=== PATIENT | male | born 1935 | race Two or more races ===

== ENCOUNTER 2016-02-24 17:03 | Inpatient (IN) | payer MEDICARE, BC ==
[~2016-02-24] VITALS: Ht 160 cm; Wt 64.4 kg
[2016-02-24 17:04] VITALS: BP 162/111
[2016-02-24 18:03] VITALS: BP 167/108
[2016-02-24 18:04] LABS: TROPONIN I < 0.30 ng/mL (<=0.30)
[2016-02-24 18:08] LABS: ALANINE AMINOTRANSFERASE 13 U/L (3-41); ALBUMIN/GLOBULIN RATIO 1.6 (1.0-2.7); ANION GAP 20 (5-15); ASPARTATE AMINO TRANSFERASE 15 U/L (5-40); CALCIUM 10.8 mg/dL (8.6-10.2); CARBON DIOXIDE 21 mEQ/L (20-30); CHLORIDE 101 mEQ/L (98-107); CREATININE 3.8 mg/dL (0.7-1.2); HEMOLYSIS 13; POTASSIUM 4.8 mEQ/L (3.4-4.9); SODIUM 142 mEQ/L (135-145); TOTAL PROTEIN 6.9 g/dL (6.6-8.7)
[2016-02-24 18:14] LABS: ABG PCO2 29.4 mmHg (35.0-45.0)
[2016-02-24 18:14] LABS: MEAN CORPUSCULAR HEMOGLOBIN 27.1 PG (27.0-31.0); MEAN CORPUSCULAR VOLUME 87 FL (80-99); MEAN PLATELET VOLUME 6.3 FL (6.5-10.1); PLATELET COUNT 260 K/UL (150-450); RED BLOOD COUNT 5.76 M/UL (4.70-6.10); RED CELL DISTRIBUTION WIDTH 14.5 % (11.6-14.8); WHITE BLOOD COUNT 14.7 K/UL (4.8-10.8)
[2016-02-24 18:15] LABS: ABG ALLEN TEST POSITIVE; ABG BASE EXCESS -3.9
[2016-02-24 18:15] LABS: CKMB 2.1 ng/mL (< 6.7)
[2016-02-24 18:17] LABS: BASOPHILS % (AUTO) 0.3 % (0.0-2.0); LYMPHOCYTES % (AUTO) 3.1 % (20.0-45.0); MONOCYTES % (AUTO) 5.5 % (1.0-10.0); NEUTROPHILS % (AUTO) 91.1 % (45.0-75.0)
[2016-02-24 18:38] LABS: APPEARANCE,URINE CLEAR; KETONES,URINE NEGATIVE (NEGATIVE); LEUKOCYTE ESTERASE ,URINE 1+ (NEGATIVE); NITRITE,URINE NEGATIVE (NEGATIVE); PH,URINE 5 (4.5-8.0); PROTEIN,URINE 2+ (NEGATIVE); UROBILINOGEN,URINE NORMAL MG/DL (0.0-1.0)
[2016-02-24 18:48] LABS: BACTERIA,URINE FEW /HPF
[2016-02-24] MEDS ORDERED: Piperacillin/Tazobactam 3.375 GM in NS 110 ML IVPB ONE (19:15)
[2016-02-24] MEDS ORDERED: Zosyn 3.375gm inj ONE (19:17)
[2016-02-24 20:15] VITALS: BP 154/108
[2016-02-24 22:01] VITALS: BP 120/69
[2016-02-24] MEDS ORDERED: LEVETIRACE100 MG/1 M GT (22:23)
[2016-02-24] MEDS ORDERED: LEVOTHYROXINE50 MCG ORAL (22:23)
[2016-02-24] MEDS ORDERED: PROSCAR5 MG ORAL (22:23)
[2016-02-24] MEDS ORDERED: SENNA8.6 M2 PO (22:23)
[2016-02-24] MEDS ORDERED: ASPIRIN81 MG ORAL (22:23)
[2016-02-24] MEDS ORDERED: VITAMIN B-121000 MCG PO (22:23)
[2016-02-24] MEDS ORDERED: HEPARIN SO5000 UNIT2 SUBQ (22:23)
[2016-02-24] MEDS ORDERED: DOCUSATE SODIU100 MG ORAL (22:23)
[2016-02-24 22:41] VITALS: BP 115/77
[2016-02-24] MEDS ORDERED: LORazepam Inj 2mg/ml 1ml IV PRN (22:45)
[2016-02-24] MEDS ORDERED: Miralax 17gm pkt ORAL PRN (22:45)
[2016-02-24] MEDS ORDERED: Morphine Sulfate 2mg/ml Inj IVP PRN (22:45)
[2016-02-24] MEDS ORDERED: Mylanta II UD 30ml ORAL PRN (22:45)
[2016-02-24] MEDS ORDERED: Promethazine/Codeine 5ml UD ORAL PRN (22:45)
[2016-02-24] MEDS ORDERED: DuoNeb 0.5-3(2.5)mg/3ml neb HHN PRN (22:45)
[2016-02-24] MEDS ORDERED: Nitroglycerin Subl 0.4mg tab (Bottle Of 25) SL PRN (22:45)
--- NOTE | 2016-02-24 23:07 | Emergency Room Report ---
History of Present Illness General Chief Complaint: Altered Level of Consciousness Source: Patient Present Illness HPI Patient is an 82-year-old male who presented after having increased altered level consciousness. The patient presented from his rehabilitation center. Patient was noted to have progressively altered mental status over the past few weeks. The patient had been previously more responsive. The patient had prior CT and MRIs done at [facility]. He was noted to have some difficulty breathing. Patient appeared to be somewhat less responsive at this time. He is noted to have some fever. He had remote history of adenocarcinoma Allergies: Coded Allergies: No Known Allergies (Unverified , 02/24/16) Patient History Past Medical History: see triage record Reviewed Nursing Documentation: PMH: Agreed, PSxH: Agreed Nursing Documentation-PMH Hx Cancer: Yes - LYMPH NODE, LUNG CANCER Hx Seizures: Yes Review of Systems All Other Systems: limited - by mental status Physical Exam Vital Signs Date Time Temp Pulse Resp B/P Pulse Ox O2 Delivery O2 Flow Rate FiO2 02/24/16 16:55 98.6 98 20 162/111 95 Room Air 02/24/16 17:04 10.0 100 General Appearance: moderate distress, Chronically Ill ENT: dry mucus membranes Neck: full range of motion, supple, thyroid normal Respiratory: lungs clear, normal breath sounds, no respiratory distress Cardiovascular #1: normal peripheral pulses, regular rate, rhythm Gastrointestinal: soft, other - lower abdominal fullness and mass Musculoskeletal: normal inspection, back normal, digits/nails normal Neurologic: other - Grimaces with abdominal exam, lower abdomen fullness/ bladder distention Psychiatric: other - aphasic Skin: normal inspection, normal color Medical Decision Making Diagnostic Impression: Primary Impression: Altered level of consciousness Additional Impressions: Sepsis Urinary tract infection ER Course Presented for altered mental status.Differential diagnosis included but was not limited to ischemic stroke, subarachnoid hemorrhage, hypoglycemia, spinal cord injury, neurodegenerative disorder, urinary tract infection, hypoxemia.Because of complexity of patient's case laboratory testing and imaging studies were ordered. CT the head read by radiology showed degenerative changes and chronic white matter changes. There is no to be some calcification in the parietal area which may be related to an old infarct. The patient was started on IV antibiotics after the [place] catheter was placed . The patient was discussed with Dr. Nelson Rodriguez for inpatient management. Laboratory Tests Test 02/24/16 17:30 02/24/16 18:00 02/24/16 20:45 White Blood Count 14.7 K/UL (4.8-10.8) H Red Blood Count 5.76 M/UL (4.70-6.10) Hemoglobin 15.6 G/DL (14.2-18.0) Hematocrit 50.3 % (42.0-52.0) Mean Corpuscular Volume 87 FL (80-99) Mean Corpuscular Hemoglobin 27.1 PG (27.0-31.0) Mean Corpuscular Hemoglobin Concent 31.0 G/DL (32.0-36.0) L Red Cell Distribution Width 14.5 % (11.6-14.8) Platelet Count 260 K/UL (150-450) Mean Platelet Volume 6.3 FL (6.5-10.1) L Neutrophils (%) (Auto) 91.1 % (45.0-75.0) H Lymphocytes (%) (Auto) 3.1 % (20.0-45.0) L Monocytes (%) (Auto) 5.5 % (1.0-10.0) Eosinophils (%) (Auto) 0.0 % (0.0-3.0) Basophils (%) (Auto) 0.3 % (0.0-2.0) Sodium Level 142 mEQ/L (135-145) Potassium Level 4.8 mEQ/L (3.4-4.9) Chloride Level 101 mEQ/L (98-107) Carbon Dioxide Level 21 mEQ/L (20-30) Anion Gap 20 (5-15) H Blood Urea Nitrogen 63 mg/dL (7-23) H Creatinine 3.8 mg/dL (0.7-1.2) H Estimate Glomerular Filtration Rate mL/min (>60) Glucose Level 154 mg/dL (74-106) H Lactic Acid Level 1.80 mmol/L (0.66-2.22) 0.90 mmol/L (0.66-2.22) Calcium Level 10.8 mg/dL (8.6-10.2) H Total Bilirubin 0.5 mg/dL (0.0-1.2) Aspartate Amino Transferase (AST) 15 U/L (5-40) Alanine Aminotransferase (ALT) 13 U/L (3-41) Alkaline Phosphatase 69 U/L (40-129) Total Creatine Kinase 40 U/L (38-174) Creatine Kinase MB 2.1 ng/mL (< 6.7) Creatine Kinase MB Relative Index 5.2 Troponin I < 0.30 ng/mL (<=0.30) Pro-B-Type Natriuretic Peptide 872 pg/mL (0-450) H Total Protein 6.9 g/dL (6.6-8.7) Albumin 4.3 g/dL (3.5-5.2) Globulin 2.6 g/dL Albumin/Globulin Ratio 1.6 (1.0-2.7) Urine Color Yellow Urine Appearance Clear Urine pH 5 (4.5-8.0) Urine Specific [place] 1.020 (1.005-1.035) Urine Protein 2+ (NEGATIVE) H Urine Glucose (UA) Negative (NEGATIVE) Urine Ketones Negative (NEGATIVE) Urine Occult Blood 4+ (NEGATIVE) H Urine Nitrite Negative (NEGATIVE) Urine Bilirubin Negative (NEGATIVE) Urine Urobilinogen Normal MG/DL (0.0-1.0) Urine Leukocyte Esterase 1+ (NEGATIVE) H Urine RBC 5-10 /HPF (0 - 0) H Urine WBC 5-10 /HPF (0 - 0) H Urine Squamous Epithelial Cells None /LPF (NONE/OCC) Urine Bacteria Few /HPF (NONE) Arterial Blood pH 7.428 (7.350-7.450) Arterial Blood Partial Pressure CO2 29.4 mmHg (35.0-45.0) L Arterial Blood Partial Pressure O2 490.3 mmHg (75.0-100.0) H Arterial Blood HCO3 19.0 mmol/L (22.0-26.0) L Arterial Blood Oxygen Saturation 99.6 % (92.0-98.0) H Arterial Blood Base Excess -3.9 Connor Test Positive Microbiology Date/Time Source Procedure Growth Status 02/24/16 18:20 Nasal Nares Influenza Types A,B Antigen (IGNACIO) - Final Complete EKG Diagnostic Results Rate: normal - 99 Rhythm: NSR ST Segments: no acute changes Rhythm Strip Diag. Results EP Interpretation: yes Rhythm: NSR, no PVC's, no ectopy Chest X-Ray Diagnostic Results EP Interpretation: Yes Findings: no consolidation, no effusion, no pneumothorax, no acute cardiopulmonary disease Number of Views: 1 Last Vital Signs Date Time Temp Pulse Resp B/P Pulse Ox O2 Delivery O2 Flow Rate FiO2 02/24/16 22:41 98.7 70 15 115/77 100 Room Air 10.0 100 Status: unchanged Disposition: ADMITTED INPATIENT Condition: Serious Referrals: NON PHYSICIAN (PCP) Jasper Mattson Feb 24, 2016 23:07
[2016-02-24] MEDS ORDERED: Vancomycin 1gm in D5W 275ml IVPB ONE (23:30)
[2016-02-25] MEDS ORDERED: Vancomycin 1gm inj IVPB ONE (00:10)
[2016-02-25] MEDS: D5 1/2NS 1,000 ML IV SCH ×3 (00:19→17:38)
[2016-02-25 00:20] VITALS: BP 114/74
[2016-02-25] MEDS ORDERED: ZOLPIDEM TARTRA10 MG ORAL (02:01)
[2016-02-25] MEDS ORDERED: NORCO 5-325 TA1 EACH ORAL (02:01)
[2016-02-25] MEDS ORDERED: TYLENOL650 MG PR (02:01)
[2016-02-25 04:15] VITALS: BP 119/66
[2016-02-25] MEDS ORDERED: Piperacillin/Tazobactam 2.25 GM in D5W 55 ML IVPB SCH (06:00)
[2016-02-25] MEDS ORDERED: Heparin 5000 units/ml inj SUBQ SCH (06:00)
[2016-02-25 08:10] VITALS: BP 133/78
[2016-02-25 08:28] LABS: MEAN CORPUSCULAR HEMOGLOBIN 28.4 PG (27.0-31.0); MEAN CORPUSCULAR HGB CONC 33.2 G/DL (32.0-36.0); MEAN CORPUSCULAR VOLUME 86 FL (80-99); MEAN PLATELET VOLUME 7.1 FL (6.5-10.1); PLATELET COUNT 205 K/UL (150-450); RED BLOOD COUNT 4.69 M/UL (4.70-6.10); RED CELL DISTRIBUTION WIDTH 14.2 % (11.6-14.8); WHITE BLOOD COUNT 9.5 K/UL (4.8-10.8)
[2016-02-25 08:34] LABS: INR 1.1 (0.9-1.1); PROTHROMBIN TIME 11.4 SEC (9.30-11.50)
[2016-02-25] MEDS: D5W IVPB SCH ×2 (08:41→20:31)
[2016-02-25] MEDS: ZOSYN IVPB SCH ×2 (08:41→20:31)
[2016-02-25 08:46] LABS: ALANINE AMINOTRANSFERASE 11 U/L (3-41); ALBUMIN/GLOBULIN RATIO 1.2 (1.0-2.7); ANION GAP 17 (5-15); ASPARTATE AMINO TRANSFERASE 10 U/L (5-40); CALCIUM 9.8 mg/dL (8.6-10.2); CARBON DIOXIDE 23 mEQ/L (20-30); CHLORIDE 104 mEQ/L (98-107); CHOLESTEROL 130 mg/dL (< 200); CREATININE 2.4 mg/dL (0.7-1.2); HEMOLYSIS 3; LDL CHOLESTEROL (CALC.) 49 mg/dL (60-99); POTASSIUM 3.9 mEQ/L (3.4-4.9); SODIUM 144 mEQ/L (135-145); TOTAL PROTEIN 6.4 g/dL (6.6-8.7)
[2016-02-25] MEDS: Aspirin Baby 81mg ORAL SCH (08:49)
[2016-02-25] MEDS: levETIRAcetam 500mg/5ml Liquid GT SCH ×2 (08:49→17:39)
[2016-02-25] MEDS: Heparin 5000 units/ml inj SUBQ SCH ×2 (08:51→21:58)
[2016-02-25 09:28] LABS: BAND NEUTROPHILS % (MANUAL) 0 % (0-8); BASOPHILS % (MANUAL) 0 % (0-2); EOSINOPHILS % (MANUAL) 0 % (0-3); LYMPHOCYTES % (MANUAL) 4 % (20-45); NEUTROPHILS % (MANUAL) 86 % (45-75); PLATELET ESTIMATE ADEQUATE; PLATELET MORPHOLOGY NORMAL; TOTAL CELLS COUNTED 100
--- NOTE | 2016-02-25 10:03 | Diagnostic Imaging Report ---
Indication: Altered mental status Technique: Contiguous 5 mm thick transaxial imaging of the head obtained in a Siemens Sensation [address] scanner. Soft tissue and bone windows generated. Total Dose length Product (DLP): [address] Dose Index Volume (CTDIvol): 70.38 mGy Comparison: none Findings: There is mild prominence of the ventricles, basal cisterns, and cerebral sulci consistent with atrophy. Moderate, nonspecific, white matter hypoattenuation is noted throughout the brain consistent with chronic small vessel disease. 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 There is no midline shift, edema, acute hemorrhage, mass effect, or abnormal extra-axial fluid collections. Bones and extra osseous soft tissues are unremarkable. Impression: No acute intracranial bleed, mass effect or edema. Moderate atrophy of the brain. Evidence of chronic small vessel disease involving white matter tracts. Dr. Siu has communicated the preliminary results to the Emergency Department. There are no significant discrepancies. The CT scanner at [facility] is accredited by the [employer] and the scans are performed using protocols designed to limit radiation exposure to as low as reasonably achievable to attain images of sufficient resolution adequate for diagnostic evaluation.
--- NOTE | 2016-02-25 12:24 | Infectious Diseases Prog Note ---
Assessment/Plan Problems: (1) Sepsis Assessment & Plan: will send blood culture, and urine culture, continue zosyn and vancomycin empirically for now. (2) Urinary tract infection Assessment & Plan: continue zosyn, send urine culture (3) SUSAN (acute kidney injury) Assessment & Plan: suspect dehydration, continue IVF, monitor UOP, avoid nephrotoxic meds (4) Altered level of consciousness Assessment & Plan: due to the above, continue wide spectrum antibiotics and hydration, consult neurology (5) Adenocarcinoma Assessment & Plan: unclear whether in remission or not, consult HEM/ONC Subjective Allergies: Coded Allergies: No Known Allergies (Unverified , 02/24/16) Objective Vital Signs Last 24 Hour Vital Signs Date Time Temp Pulse Resp B/P Pulse Ox O2 Delivery O2 Flow Rate FiO2 02/25/16 08:10 97.7 79 20 133/78 96 Room Air 02/25/16 08:00 80 02/25/16 04:15 98.8 76 19 119/66 Room Air 02/25/16 03:47 73 02/25/16 00:20 98.7 74 19 114/74 98 Room Air 02/24/16 23:41 73 02/24/16 22:43 98.7 70 15 115/77 100 Room Air 10.0 100 02/24/16 22:41 98.7 70 15 115/77 100 Room Air 10.0 100 02/24/16 22:01 89 24 120/69 98 Non-Rebreather 10.0 100 02/24/16 20:15 95 21 154/108 95 Non-Rebreather 10.0 100 02/24/16 18:03 100.4 98 26 167/108 95 Non-Rebreather 10.0 100 02/24/16 17:04 98.6 117 20 162/111 95 Non-Rebreather 10.0 100 02/24/16 16:55 98.6 98 20 162/111 95 Room Air Height (Feet): 5 Height (Inches): 3.00 Weight (Pounds): 142 Microbiology Date/Time Source Procedure Growth Status 02/25/16 03:30 Nasal Nares Influenza Types A,B Antigen (IGNACIO) - Final Complete 02/24/16 18:20 Nasal Nares Influenza Types A,B Antigen (IGNACIO) - Final Complete Laboratory Tests Test 02/24/16 17:30 02/24/16 18:00 1/17/17 20:45 02/25/16 07:30 White Blood Count 14.7 K/UL (4.8-10.8) H 9.5 K/UL (4.8-10.8) Red Blood Count 5.76 M/UL (4.70-6.10) 4.69 M/UL (4.70-6.10) L Hemoglobin 15.6 G/DL (14.2-18.0) 13.3 G/DL (14.2-18.0) L Hematocrit 50.3 % (42.0-52.0) 40.1 % (42.0-52.0) L Mean Corpuscular Volume 87 FL (80-99) 86 FL (80-99) Mean Corpuscular Hemoglobin 27.1 PG (27.0-31.0) 28.4 PG (27.0-31.0) Mean Corpuscular Hemoglobin Concent 31.0 G/DL (32.0-36.0) L 33.2 G/DL (32.0-36.0) Red Cell Distribution Width 14.5 % (11.6-14.8) 14.2 % (11.6-14.8) Platelet Count 260 K/UL (150-450) 205 K/UL (150-450) Mean Platelet Volume 6.3 FL (6.5-10.1) L 7.1 FL (6.5-10.1) Neutrophils (%) (Auto) 91.1 % (45.0-75.0) H % (45.0-75.0) Lymphocytes (%) (Auto) 3.1 % (20.0-45.0) L % (20.0-45.0) Monocytes (%) (Auto) 5.5 % (1.0-10.0) % (1.0-10.0) Eosinophils (%) (Auto) 0.0 % (0.0-3.0) % (0.0-3.0) Basophils (%) (Auto) 0.3 % (0.0-2.0) % (0.0-2.0) Sodium Level 142 mEQ/L (135-145) 144 mEQ/L (135-145) Potassium Level 4.8 mEQ/L (3.4-4.9) 3.9 mEQ/L (3.4-4.9) Chloride Level 101 mEQ/L (98-107) 104 mEQ/L (98-107) Carbon Dioxide Level 21 mEQ/L (20-30) 23 mEQ/L (20-30) Anion Gap 20 (5-15) H 17 (5-15) H Blood Urea Nitrogen 63 mg/dL (7-23) H 63 mg/dL (7-23) H Creatinine 3.8 mg/dL (0.7-1.2) H 2.4 mg/dL (0.7-1.2) H Estimat Glomerular Filtration Rate mL/min (>60) mL/min (>60) Glucose Level 154 mg/dL (74-106) H 109 mg/dL (74-106) H Lactic Acid Level 1.80 mmol/L (0.66-2.22) 0.90 mmol/L (0.66-2.22) Calcium Level 10.8 mg/dL (8.6-10.2) H 9.8 mg/dL (8.6-10.2) Total Bilirubin 0.5 mg/dL (0.0-1.2) 0.6 mg/dL (0.0-1.2) Aspartate Amino Transf (AST/SGOT) 15 U/L (5-40) 10 U/L (5-40) Alanine Aminotransferase (ALT/SGPT) 13 U/L (3-41) 11 U/L (3-41) Alkaline Phosphatase 69 U/L (40-129) 56 U/L (40-129) Total Creatine Kinase 40 U/L (38-174) Creatine Kinase MB 2.1 ng/mL (< 6.7) Creatine Kinase MB Relative Index 5.2 Troponin I < 0.30 ng/mL (<=0.30) Pro-B-Type Natriuretic Peptide 872 pg/mL (0-450) H Total Protein 6.9 g/dL (6.6-8.7) 6.4 g/dL (6.6-8.7) L Albumin 4.3 g/dL (3.5-5.2) 3.5 g/dL (3.5-5.2) Globulin 2.6 g/dL 2.9 g/dL Albumin/Globulin Ratio 1.6 (1.0-2.7) 1.2 (1.0-2.7) Urine Color Yellow Urine Appearance Clear Urine pH 5 (4.5-8.0) Urine Specific [place] 1.020 (1.005-1.035) Urine Protein 2+ (NEGATIVE) H Urine Glucose (UA) Negative (NEGATIVE) Urine Ketones Negative (NEGATIVE) Urine Occult Blood 4+ (NEGATIVE) H Urine Nitrite Negative (NEGATIVE) Urine Bilirubin Negative (NEGATIVE) Urine Urobilinogen Normal MG/DL (0.0-1.0) Urine Leukocyte Esterase 1+ (NEGATIVE) H Urine RBC 5-10 /HPF (0 - 0) H Urine WBC 5-10 /HPF (0 - 0) H Urine Squamous Epithelial Cells None /LPF (NONE/OCC) Urine Bacteria Few /HPF (NONE) Arterial Blood pH 7.428 (7.350-7.450) Arterial Blood Partial Pressure CO2 29.4 mmHg (35.0-45.0) L Arterial Blood Partial Pressure O2 490.3 mmHg (75.0-100.0) H Arterial Blood HCO3 19.0 mmol/L (22.0-26.0) L Arterial Blood Oxygen Saturation 99.6 % (92.0-98.0) H Arterial Blood Base Excess -3.9 Connor Test Positive Differential Total Cells Counted 100 Neutrophils % (Manual) 86 % (45-75) H Lymphocytes % (Manual) 4 % (20-45) L Monocytes % (Manual) 10 % (1-10) Eosinophils % (Manual) 0 % (0-3) Basophils % (Manual) 0 % (0-2) Band Neutrophils 0 % (0-8) Platelet Estimate Adequate Platelet Morphology Normal Red Blood Cell Morphology Normal Prothrombin Time 11.4 SEC (9.30-11.50) Prothromb Time International Ratio 1.1 (0.9-1.1) Activated Partial Thromboplast Time 35 SEC (23-33) H Triglycerides Level 82 mg/dL (< 150) Cholesterol Level 130 mg/dL (< 200) LDL Cholesterol 49 mg/dL (60-99) L HDL Cholesterol 65 mg/dL (> 60) H Cholesterol/HDL Ratio 2.0 (3.3-4.4) L Thyroid Stimulating Hormone (TSH) 1.840 uIU/mL (0.300-4.500) Current Medications Medications (Trade) Dose Ordered Sig/Christina Route PRN Reason Start Time Stop Time Status Last Admin Dose Admin Acetaminophen (Tylenol) 650 mg Q4H PRN ORAL fever 02/24/16 22:45 03/25/16 22:44 Al Hydroxide/Mg Hydroxide (Mylanta II) 30 ml Q6H PRN ORAL dyspepsia 02/24/16 22:45 03/25/16 22:44 Albuterol/ Ipratropium (DuoNeb 0.5-3(2.5)mg/3ml) 3 ml Q4H PRN HHN Shortness of Breath 02/24/16 22:45 02/29/16 22:44 Aspirin (ASA) 81 mg DAILY ORAL 02/25/16 09:00 03/26/16 08:59 02/25/16 08:49 Clonidine HCl (Catapres) 0.1 mg Q4H PRN ORAL For High Blood Pressure 02/24/16 22:45 03/25/16 22:44 Dextrose (Dextrose 50%) STAT PRN IV Hypoglycemia 02/24/16 22:45 03/25/16 22:44 Dextrose/Sodium Chloride (D5 0.45% NS) 1,000 ml @ 50 mls/hr Q20H IV 02/24/16 17:50 03/25/16 17:49 02/25/16 00:19 Finasteride (Proscar) 5 mg DAILY ORAL 02/25/16 09:00 03/26/16 08:59 02/25/16 08:49 Heparin Sodium (Porcine) (Heparin 5000 units/ml) 5,000 units EVERY 12 HOURS SUBQ 02/25/16 09:00 03/26/16 08:59 02/25/16 08:51 Levetiracetam (Keppra) 500 mg BID GT 02/25/16 09:00 03/26/16 08:59 02/25/16 08:49 Levothyroxine Sodium 50 mcg 50 mcg ACBREAKFAST ORAL 02/25/16 06:30 03/26/16 06:29 Lorazepam (Ativan 2mg/ml 1ml) 0.5 mg Q4H PRN IV For Anxiety 02/24/16 22:45 03/02/16 22:44 Morphine Sulfate (Morphine Sulfate) 1 mg Q4H PRN IVP For Pain 7-10 02/24/16 22:45 03/02/16 22:44 Nitroglycerin (Ntg) 0.4 mg Q5M X 3 DOSES PRN SL Prn Chest Pain 02/24/16 22:45 03/25/16 22:44 Ondansetron HCl (Zofran) 4 mg Q6H PRN IVP Nausea & Vomiting 02/24/16 22:45 03/25/16 22:44 Piperacillin Sod/ Tazobactam Sod/ Dextrose (Zosyn/D5W) 110 ml @ 27.5 mls/hr Q12H IVPB 02/25/16 07:30 03/03/16 07:29 02/25/16 08:41 Polyethylene Glycol (Miralax) 17 gm HSPRN PRN ORAL Constipation 02/24/16 22:45 03/25/16 22:44 Promethazine HCl/ Codeine (Phenergan with Codeine) 5 ml Q4H PRN ORAL For Cough 02/24/16 22:45 03/25/16 22:44 Temazepam (Restoril) 15 mg HSPRN PRN ORAL Insomnia 02/24/16 22:45 03/02/16 22:44 Vancomycin HCl 1 ea 1 ea DAILY PRN MISC Per rx protocol 02/24/16 23:00 03/25/16 22:59 Nabor Gonzales M.D. Feb 25, 2016 12:24
--- NOTE | 2016-02-25 12:47 | Consultation ---
History of Present Illness General Date patient seen: Feb 25, 2016 Chief Complaint: Altered Level of Consciousness Referring physician: Dr Rodriguez Reason for Consultation: inpatient management Present Illness HPI 82-year-old male with hx of seizures, ?dementia residing in a rehab facility who presented after having increased altered level consciousness over the past few weeks. The patient had been previously more responsive. He was noted to have some fever. 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 He had a CT head in the showing only chronic vascular changes. He is admitted to [facility] for further evaluation. Allergies: Coded Allergies: No Known Allergies (Unverified , 02/24/16) Medication History Scheduled Acetaminophen (Acetaminophen), [address] Q6HR, (Reported) Aspirin* (Aspirin*), 81 MG ORAL DAILY, (Reported) Cyanocobalamin (Vitamin B-12) (Vitamin B-12), 1,000 MCG PO DAILY, (Reported) Docusate Sodium* (Docusate Sodium*), 100 MG ORAL TWICE A DAY, (Reported) Finasteride* (Proscar*), 5 MG ORAL DAILY, (Reported) Heparin Sod (Porcine) (Heparin Sodium*), 5,000 UNITS SUBQ EVERY 8 HOURS, ( Reported) Levetiracetam* (Levetiracetam*), 500 MG GT BID, (Reported) Levothyroxine Sodium* (Levothyroxine Sodium*), 50 MCG ORAL DAILY, (Reported) Scheduled PRN Hydrocodone Bit/Acetaminophen 5-325* ([place] 5-325*), 1 TAB ORAL Q4H PRN for For Pain, (Reported) Zolpidem Tartrate* (Zolpidem Tartrate*), 10 MG ORAL BEDTIME PRN for Insomnia, ( Reported) Miscellaneous Medications Sennosides (Senna), 8.6 MG PO, (Reported) Patient History Healthcare decision maker Orlando Tang (daughter) Resuscitation status Full Code Advanced Directive on File No Review of Systems All Other Systems: negative except mentioned in HPI Physical Exam General Appearance: WD/WN, no apparent distress Lines, tubes and drains: peripheral, central line HEENT: normocephalic, atraumatic Neck: non-tender, normal alignment Respiratory/Chest: chest wall non-tender, lungs clear Cardiovascular/Chest: normal peripheral pulses, normal rate Abdomen: normal bowel sounds Genitourinary/Rectal: normal genital exam Extremities: normal range of motion Last 24 Hour Vital Signs Date Time Temp Pulse Resp B/P Pulse Ox O2 Delivery O2 Flow Rate FiO2 02/25/16 08:10 97.7 79 20 133/78 96 Room Air 02/25/16 08:00 80 02/25/16 04:15 98.8 76 19 119/66 Room Air 02/25/16 03:47 73 02/25/16 00:20 98.7 74 19 114/74 98 Room Air 02/24/16 23:41 73 02/24/16 22:43 98.7 70 15 115/77 100 Room Air 10.0 100 02/24/16 22:41 98.7 70 15 115/77 100 Room Air 10.0 100 02/24/16 22:01 89 24 120/69 98 Non-Rebreather 10.0 100 02/24/16 20:15 95 21 154/108 95 Non-Rebreather 10.0 100 02/24/16 18:03 100.4 98 26 167/108 95 Non-Rebreather 10.0 100 02/24/16 17:04 98.6 117 20 162/111 95 Non-Rebreather 10.0 100 02/24/16 16:55 98.6 98 20 162/111 95 Room Air Intake and Output 02/24/16 02/25/16 19:00 07:00 Intake Total 668.000 ml Output Total 1200 ml 2300 ml Balance -1200 ml -1632.000 ml Intake IV Total 668.000 ml Output Urine Total 1200 ml 2300 ml Laboratory Tests Test 02/24/16 17:30 02/24/16 18:00 02/24/16 20:45 02/25/16 07:30 White Blood Count 14.7 K/UL (4.8-10.8) H 9.5 K/UL (4.8-10.8) Red Blood Count 5.76 M/UL (4.70-6.10) 4.69 M/UL (4.70-6.10) L Hemoglobin 15.6 G/DL (14.2-18.0) 13.3 G/DL (14.2-18.0) L Hematocrit 50.3 % (42.0-52.0) 40.1 % (42.0-52.0) L Mean Corpuscular Volume 87 FL (80-99) 86 FL (80-99) Mean Corpuscular Hemoglobin 27.1 PG (27.0-31.0) 28.4 PG (27.0-31.0) Mean Corpuscular Hemoglobin Concent 31.0 G/DL (32.0-36.0) L 33.2 G/DL (32.0-36.0) Red Cell Distribution Width 14.5 % (11.6-14.8) 14.2 % (11.6-14.8) Platelet Count 260 K/UL (150-450) 205 K/UL (150-450) Mean Platelet Volume 6.3 FL (6.5-10.1) L 7.1 FL (6.5-10.1) Neutrophils (%) (Auto) 91.1 % (45.0-75.0) H % (45.0-75.0) Lymphocytes (%) (Auto) 3.1 % (20.0-45.0) L % (20.0-45.0) Monocytes (%) (Auto) 5.5 % (1.0-10.0) % (1.0-10.0) Eosinophils (%) (Auto) 0.0 % (0.0-3.0) % (0.0-3.0) Basophils (%) (Auto) 0.3 % (0.0-2.0) % (0.0-2.0) Sodium Level 142 mEQ/L (135-145) 144 mEQ/L (135-145) Potassium Level 4.8 mEQ/L (3.4-4.9) 3.9 mEQ/L (3.4-4.9) Chloride Level 101 mEQ/L (98-107) 104 mEQ/L (98-107) Carbon Dioxide Level 21 mEQ/L (20-30) 23 mEQ/L (20-30) Anion Gap 20 (5-15) H 17 (5-15) H Blood Urea Nitrogen 63 mg/dL (7-23) H 63 mg/dL (7-23) H Creatinine 3.8 mg/dL (0.7-1.2) H 2.4 mg/dL (0.7-1.2) H Estimat Glomerular Filtration Rate mL/min (>60) mL/min (>60) Glucose Level 154 mg/dL (74-106) H 109 mg/dL (74-106) H Lactic Acid Level 1.80 mmol/L (0.66-2.22) 0.90 mmol/L (0.66-2.22) Calcium Level 10.8 mg/dL (8.6-10.2) H 9.8 mg/dL (8.6-10.2) Total Bilirubin 0.5 mg/dL (0.0-1.2) 0.6 mg/dL (0.0-1.2) Aspartate Amino Transf (AST/SGOT) 15 U/L (5-40) 10 U/L (5-40) Alanine Aminotransferase (ALT/SGPT) 13 U/L (3-41) 11 U/L (3-41) Alkaline Phosphatase 69 U/L (40-129) 56 U/L (40-129) Total Creatine Kinase 40 U/L (38-174) Creatine Kinase MB 2.1 ng/mL (< 6.7) Creatine Kinase MB Relative Index 5.2 Troponin I < 0.30 ng/mL (<=0.30) Pro-B-Type Natriuretic Peptide 872 pg/mL (0-450) H Total Protein 6.9 g/dL (6.6-8.7) 6.4 g/dL (6.6-8.7) L Albumin 4.3 g/dL (3.5-5.2) 3.5 g/dL (3.5-5.2) Globulin 2.6 g/dL 2.9 g/dL Albumin/Globulin Ratio 1.6 (1.0-2.7) 1.2 (1.0-2.7) Urine Color Yellow Urine Appearance Clear Urine pH 5 (4.5-8.0) Urine Specific [place] 1.020 (1.005-1.035) Urine Protein 2+ (NEGATIVE) H Urine Glucose (UA) Negative (NEGATIVE) Urine Ketones Negative (NEGATIVE) Urine Occult Blood 4+ (NEGATIVE) H Urine Nitrite Negative (NEGATIVE) Urine Bilirubin Negative (NEGATIVE) Urine Urobilinogen Normal MG/DL (0.0-1.0) Urine Leukocyte Esterase 1+ (NEGATIVE) H Urine RBC 5-10 /HPF (0 - 0) H Urine WBC 5-10 /HPF (0 - 0) H Urine Squamous Epithelial Cells None /LPF (NONE/OCC) Urine Bacteria Few /HPF (NONE) Arterial Blood pH 7.428 (7.350-7.450) Arterial Blood Partial Pressure CO2 29.4 mmHg (35.0-45.0) L Arterial Blood Partial Pressure O2 490.3 mmHg (75.0-100.0) H Arterial Blood HCO3 19.0 mmol/L (22.0-26.0) L Arterial Blood Oxygen Saturation 99.6 % (92.0-98.0) H Arterial Blood Base Excess -3.9 Connor Test Positive Differential Total Cells Counted 100 Neutrophils % (Manual) 86 % (45-75) H Lymphocytes % (Manual) 4 % (20-45) L Monocytes % (Manual) 10 % (1-10) Eosinophils % (Manual) 0 % (0-3) Basophils % (Manual) 0 % (0-2) Band Neutrophils 0 % (0-8) Platelet Estimate Adequate Platelet Morphology Normal Red Blood Cell Morphology Normal Prothrombin Time 11.4 SEC (9.30-11.50) Prothromb Time International Ratio 1.1 (0.9-1.1) Activated Partial Thromboplast Time 35 SEC (23-33) H Triglycerides Level 82 mg/dL (< 150) Cholesterol Level 130 mg/dL (< 200) LDL Cholesterol 49 mg/dL (60-99) L HDL Cholesterol 65 mg/dL (> 60) H Cholesterol/HDL Ratio 2.0 (3.3-4.4) L Thyroid Stimulating Hormone (TSH) 1.840 uIU/mL (0.300-4.500) Microbiology Date/Time Source Procedure Growth Status 02/25/16 03:30 Nasal Nares Influenza Types A,B Antigen (IGNACIO) - Final Complete 02/24/16 18:20 Nasal Nares Influenza Types A,B Antigen (IGNACIO) - Final Complete Height (Feet): 5 Height (Inches): 3.00 Weight (Pounds): 142 Medications Current Medications Medications (Trade) Dose Ordered Sig/Christina Route PRN Reason Start Time Stop Time Status Last Admin Dose Admin Acetaminophen (Tylenol) 650 mg Q4H PRN ORAL fever 02/24/16 22:45 03/25/16 22:44 Al Hydroxide/Mg Hydroxide (Mylanta II) 30 ml Q6H PRN ORAL dyspepsia 1/17/17 22:45 03/25/16 22:44 Albuterol/ Ipratropium (DuoNeb 0.5-3(2.5)mg/3ml) 3 ml Q4H PRN HHN Shortness of Breath 02/24/16 22:45 02/29/16 22:44 Aspirin (ASA) 81 mg DAILY ORAL 02/25/16 09:00 03/26/16 08:59 02/25/16 08:49 Clonidine HCl (Catapres) 0.1 mg Q4H PRN ORAL For High Blood Pressure 02/24/16 22:45 03/25/16 22:44 Dextrose (Dextrose 50%) STAT PRN IV Hypoglycemia 02/24/16 22:45 03/25/16 22:44 Dextrose/Sodium Chloride (D5 0.45% NS) 1,000 ml @ 50 mls/hr Q20H IV 02/24/16 17:50 03/25/16 17:49 02/25/16 00:19 Finasteride (Proscar) 5 mg DAILY ORAL 02/25/16 09:00 03/26/16 08:59 02/25/16 08:49 Heparin Sodium (Porcine) (Heparin 5000 units/ml) 5,000 units EVERY 12 HOURS SUBQ 02/25/16 09:00 03/26/16 08:59 02/25/16 08:51 Levetiracetam (Keppra) 500 mg BID GT 02/25/16 09:00 03/26/16 08:59 02/25/16 08:49 Levothyroxine Sodium 50 mcg 50 mcg ACBREAKFAST ORAL 02/25/16 06:30 03/26/16 06:29 Lorazepam (Ativan 2mg/ml 1ml) 0.5 mg Q4H PRN IV For Anxiety 02/24/16 22:45 03/02/16 22:44 Morphine Sulfate (Morphine Sulfate) 1 mg Q4H PRN IVP For Pain 7-10 02/24/16 22:45 03/02/16 22:44 Nitroglycerin (Ntg) 0.4 mg Q5M X 3 DOSES PRN SL Prn Chest Pain 02/24/16 22:45 03/25/16 22:44 Ondansetron HCl (Zofran) 4 mg Q6H PRN IVP Nausea & Vomiting 02/24/16 22:45 03/25/16 22:44 Piperacillin Sod/ Tazobactam Sod/ Dextrose (Zosyn/D5W) 110 ml @ 27.5 mls/hr Q12H IVPB 02/25/16 07:30 03/03/16 07:29 02/25/16 08:41 Polyethylene Glycol (Miralax) 17 gm HSPRN PRN ORAL Constipation 02/24/16 22:45 03/25/16 22:44 Promethazine HCl/ Codeine (Phenergan with Codeine) 5 ml Q4H PRN ORAL For Cough 02/24/16 22:45 03/25/16 22:44 Temazepam (Restoril) 15 mg HSPRN PRN ORAL Insomnia 02/24/16 22:45 03/02/16 22:44 Vancomycin HCl 1 ea 1 ea DAILY PRN MISC Per rx protocol 02/24/16 23:00 03/25/16 22:59 Assessment/Plan Problem List: (1) Acute encephalopathy ICD Codes: G93.40 - Encephalopathy, unspecified SNOMED: 1460369 (2) Urinary tract infection ICD Codes: N39.0 - Urinary tract infection, site not specified SNOMED: 47887046 (3) Altered level of consciousness ICD Codes: R40.4 - Transient alteration of awareness SNOMED: 2101283 (4) SUSAN (acute kidney injury) ICD Codes: N17.9 - Acute kidney failure, unspecified SNOMED: 35850468 (5) Adenocarcinoma ICD Codes: C80.1 - Malignant (primary) neoplasm, unspecified SNOMED: 01126633, 144664469, 365329565 Assessment/Plan telemetry monitoring check cultures IV antibiotics check electrolytes renal evaluation neuro evaluation dvt prophylaxis HELADIO AMBRIZ Feb 25, 2016 12:47
[2016-02-25 13:03] VITALS: BP 118/72
--- NOTE | 2016-02-25 15:53 | Consultation ---
Consult Note Consult Note asked to eval for renal failure Patient is an 82-year-old male who presented after having increased altered level consciousness. The patient presented from his rehabilitation center. Patient was noted to have progressively altered mental status over the past few weeks. The patient had been previously more responsive. The patient had prior CT and MRIs done at [facility]. He was noted to have some difficulty breathing. Patient appeared to be somewhat less responsive at this time. He is noted to have some fever. He had remote history of adenocarcinoma Hx Cancer: Yes - LYMPH NODE, LUNG CANCER Hx Seizures: Yes . Assessment/Plan ---Acute renal failure due to ? Obstruction and Dehydration- Mainly prerenal picture- Other; - Acute encephalopathy - Urinary tract infection / Sepsis - Altered level of consciousness / Encephalopathy - Adenocarcinoma Plan: Hydrate- Avoid Nephrotoxics- Antibiotics- Urine studies- JUAN ALBERTO MNOTERO Feb 25, 2016 15:53
[2016-02-25 16:23] VITALS: BP 124/81
[2016-02-25] MEDS ORDERED: Vancomycin 1gm in D5W 275ml IVPB ONE (18:00)
--- NOTE | 2016-02-25 18:00 | Consultation ---
Consult Note Consult Note NEUROLOGY CONSULTATION: Full note dictated #[id number] 82 y/o, RH, CM who was well other than having adenocarcinoma of the lung a few years ago now in remission. In January 2016 he was driving his car and got lost. Then he was noted to have a rapid decline in cognitive and motor function. 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 In early February he had a seizure at home. He was taken to . He had a CT of the brain and MRI of the brain which revealed right parietal pathology, hydrocephalus and extensive DWM changes. He was started on Keppra. He also had a high volume LP done which did not improve his condition. He was then sent to [facility]. He was [facility] [place] [facility] [place]. His daughter has noted some abnormal movements of what she thinks is his right hand yesterday but they have stopped today. ON EXAM: Global cerebral dysfunction. Left VII central. Left > right paresis Brisker reflexes on left. IMPRESSION: Significantly encephalopathic due to R>L brain dysfunction. Electrolyte imbalances and UTI. Possible ictal phenomena. REC: 1. Correct toxic metabolic imbalances. 2. EEG. 3. Continue Keppra 500 mg q 12 H for now. Verito Tuttle M.D., M.S.P.Yoan. VERITO TUTTLE Feb 25, 2016 18:00
--- NOTE | 2016-02-25 18:58 | History and Physical Report ---
DATE OF ADMISSION: 02/24/2016 REASON FOR ADMISSION: Altered mental status and adenocarcinoma. HISTORY OF PRESENT ILLNESS: The patient is a very poor historian. Does not speak or does not answer my questions. Only nods when I call his name, so he is particularly only oriented to name and cannot obtain any history from the patient. The patient admitted for altered mental status. He came in with increased level of altered consciousness. Apparently, his altered mental status progressively getting worse in the past couple of weeks. The patient is more responsive . He was also noted to have some difficulty breathing. The patient has also has history of hydrocephalus. The patient apparently also has low-grade temperature and is also being admitted for urinary tract infection, which could exacerbate his mentation and contribute to the altered mental status. He has a remote history of adenocarcinoma. PAST MEDICAL HISTORY: Organic brain syndrome, history of lung cancer, and history of seizures. Also history of constipation and BPH as well as history of seizure disorder, hypothyroidism, constipation, insomnia, and hydrocephalus. ALLERGIES: No known allergies. PAST SURGICAL HISTORY: Unable to obtain. REVIEW OF SYSTEMS: Unable to obtain. FAMILY HISTORY: Unable to obtain. SOCIAL HISTORY: Unable to obtain. MEDICATIONS: Apparently, he takes aspirin, vitamin B12, Colace, finasteride, heparin, Keppra, Levoxyl, Senokot, and Ambien. PHYSICAL EXAMINATION: VITAL SIGNS: Temperature is 98.7 degrees, pulse 74, and blood pressure 114/75. HEENT: PERRLA. NECK: Supple. No lymphadenopathy. CHEST: Clear to auscultation. GASTROINTESTINAL: Soft, nontender, and nondistended. No organomegaly. Positive bowel sounds. EXTREMITIES: No edema. Reflexes equal on both sides. SKIN: The patient does have ecchymoses on the abdomen. CENTRAL NERVOUS SYSTEM: Only oriented to name. Does not answers questions. He has weak contractures. LABORATORY DATA: WBC of 14.7, hemoglobin of 15.6, and platelets 260,000. Sodium 142, potassium 4.8, BUN 62, creatinine 3.8, and glucose 154. ASSESSMENT AND PLAN: 1. Altered mental status, getting worse. 2. History of hydrocephalus. 3. History of fever. 4. History of retaining urine. 5. History of benign prostatic hypertrophy. 6. History of adenocarcinoma. 7. At this time, the patient has leukocytosis. 8. Acute renal failure. 9. Dehydration. Again, I have asked Dr. Tuttle, Dr. Gonzales, Dr. Bowman, and Dr. Barker to see the patient for the above-mentioned diagnoses and treatment. Nelson Rodriguez M.D. DR: HUMZA JOB#: [id number] CC:
[2016-02-25 20:00] VITALS: BP 136/76
--- NOTE | 2016-02-25 22:48 | Consultation ---
DATE OF CONSULTATION: 02/25/2016 INFECTIOUS DISEASE CONSULTATION CONSULTING PHYSICIAN: Nabor Gonzales M.D. REQUESTING PHYSICIAN: Nelson Rodriguez M.D. REASON FOR CONSULTATION: Sepsis, urinary tract infection, recommendation for antibiotic therapy. HISTORY OF PRESENT ILLNESS: The patient is an 82-year-old male, who was living at the [facility], was brought into [facility] for altered mental status and stiffness. The patient was noticed by his daughter, who visited him yesterday that he was altered, unresponsive, and stiff. The patient had previous history of adenocarcinoma of the lungs where he was treated for with radiation and chemotherapy. Recently, he had a CT scan and MRI image done by his primary care physician due to tremor and dementia like symptoms, both were normal. The patient was found to have urine retention in the emergency room. Madison catheter was placed and he had almost a liter out. The patient had evidence of urine infection. So, I was asked by the primary provider for antibiotics recommendation and management. As of note, the patient is a poor historian. History was mainly obtained by his daughter, who was at the bedside and the medical record. PAST MEDICAL HISTORY: 1. Significant for adenocarcinoma of the lung status post chemo and radiation treatment at [facility]. 2. Seizure disorder. 3. 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 PAST SURGICAL HISTORY: The patient had lobectomy due to adenocarcinoma of the lung. MEDICATIONS: He is on Zosyn and vancomycin. The rest of his medications, please refer to the MAR. ALLERGIES: He has no known drug allergy. SOCIAL HISTORY: The patient lives currently at the [facility] living. No recent drugs, tobacco, or alcohol. FAMILY HISTORY: Not contributory. PHYSICAL EXAMINATION: VITAL SIGNS: Temperature 97.7, pulse 77, respirations 18, blood pressure 134/81, and saturation 96% on room air. GENERAL: This is an elderly male, lying in bed, awake, alert, and oriented x2, not in distress with no focal deficits. HEENT: Normocephalic and atraumatic. Pupils are reactive to light. Dry oral mucosa. No exudate. NECK: Supple. No lymphadenopathy. CARDIOVASCULAR: Regular rate and rhythm. No murmur or gallop. LUNGS: Clear bilaterally. No wheezing or rhonchi. ABDOMEN: Soft, nontender, and nondistended. Positive bowel sounds. No hepatosplenomegaly. No ascites. EXTREMITIES: No edema or cyanosis. LABORATORY AND DIAGNOSTIC DATA: White count 9.5, hemoglobin 13.3, hematocrit 40.1, and platelet count 205,000. BUN of 63, creatinine of 2.4, glucose of 109. AST of 10, ALT of 11, LDL of 49. Microbiology, influenza screening for A and B, both were negative. Imaging, head CT scan showed no acute intracranial bleed, mass effect, or edema, moderate atrophy of the brain, and evidence of chronic small vessel disease involving white matter tracts. Venous Doppler of both lower extremities, both negative. ASSESSMENT AND PLAN: 1. Sepsis/urinary tract infection. We will send urine culture and blood culture. Continue Zosyn and vancomycin. Empiric treatment for now until further culture are obtained. 2. Urinary tract infection. Suspect due to urinary retention status post Madison catheter placement. Continue Zosyn. Await urine culture. 3. Acute renal failure due to obstructive uropathy. The patient had a Madison catheter placed, which relieved his obstruction. Continue intravenous fluid for hydration. Monitor urine output. Avoid nephrotoxic medications. 4. Altered level of consciousness. Suspect due to the above, improved. Continue wide-spectrum antibiotics therapy and hydration, consult Urology. 5. Adenocarcinoma of the lung status post chemo and radiation treatment, in remission. Follow up with hematology/oncology as an outpatient. Nabor Gonzales M.D. DR: BRIE JOB#: [id number] CC:
[2016-02-26] VITALS: BP 139/86
--- NOTE | 2016-02-26 00:47 | Consultation ---
DATE OF CONSULTATION: 02/25/2016 CONSULTING PHYSICIAN: Ray Tuttle M.D. REQUESTING PHYSICIAN: Nelson Rodriguez M.D. HISTORY: Mr. Kirby Mg is an 82-year-old, right-handed, gentleman who has a prior history of adenocarcinoma of the lung a few years ago, which is now in remission. He also has a history of benign prostatic hypertrophy which is relatively well controlled with the pills he is taking. He was functioning relatively well until January 2016 when he was driving his car and got lost. He was then noted by his family to have a relatively rapid decline in cognitive and motor function. His memory was deteriorating rapidly. He was having increasing problems with walking, and he was also having problems with controlling his bladder. 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 He was seen by Dr. Gurinder Ramos, and plans were to do a high-volume lumbar puncture. However, in early February 2016, he was at home and apparently had a generalized tonic-clonic seizure. He was taken to the [facility] Emergency Room and admitted. A CT scan of the brain and MRI scan of the brain were done and they revealed a right parietal area of pathology with a calcified lesion there. In addition, significant hydrocephalus and extensive deep white matter changes were also seen. The patient was started on Keppra for seizure prophylaxis. A high-volume lumbar puncture was also done, which did not improve his condition. He was then sent to the [facility] ([facility]) for rehabilitation. Over the last few days, his condition again started to get worse. He was becoming increasingly poorly responsive, and as per his daughter, he was having some abnormal limb movements, predominantly of his hand. She thinks that it was his right hand that was jerking. As a result of that, he was brought into the [facility] Emergency Room yesterday for altered mental state. He was evaluated in the emergency room and was discovered to have significant electrolyte imbalances, and in addition, had a urinary tract infection. He was treated for both those conditions, and as per his daughter, he is looking better now. PAST MEDICAL HISTORY: Significant for adenocarcinoma of the lung a few years ago which is now in remission, benign prostatic hypertrophy, relatively rapidly progressive cognitive decline since January 2016, and seizure disorder with a generalized tonic-clonic seizure in February 2016, treated with Keppra. FAMILY HISTORY: Nothing significant. PERSONAL HISTORY: Home: He used to live independently, but recently he has been living with his daughter. Work: He used to work as a repairer general. Habits: There is no history of alcohol tobacco or illicit drug use. PRESENT MEDICATIONS: Include vancomycin, Protonix, aspirin 81 mg daily, Proscar, Keppra 500 mg twice a day, heparin for DVT prophylaxis, Zosyn, DuoNeb, Tylenol p.r.n., morphine p.r.n., MiraLAX p.r.n., Zofran p.r.n., Ativan p.r.n., Restoril p.r.n., nitroglycerin p.r.n., clonidine p.r.n., and Phenergan With Codeine p.r.n. PHYSICAL EXAMINATION: GENERAL: He is a well-developed, well-nourished, pleasant gentleman, lying in bed, in no acute distress. VITAL SIGNS: Pulse is 76 per minute, blood pressure 124/81 mmHg, respirations 18 per minute, and temperature 97.7 degrees Fahrenheit. HEAD: Normocephalic and atraumatic. EENT: Examination benign. NECK: No neck rigidity was observed. NEUROLOGIC EXAMINATION: MENTAL STATUS EXAMINATION: He was awake, but not completely alert. He was oriented to self and hospital. He did not know the name of the hospital. He had no idea of what the date, month, or year was. He was able to recall 3/3 words immediately, but could not remember any of them in 1 minute and 3 minutes. He was unable to tell me who the present president was or who prior presidents were. His mathematical skills were impaired. His visuospatial function was also impaired. SPEECH: He had a mild dysarthria. LANGUAGE: He had anomia for low-frequency words. CRANIAL NERVE EXAMINATION: II: The visual gates were intact to confrontation testing. III, IV & : External ocular movements are full and the pupils 3 mm in diameter, equal, round, regular, and reactive to light. V: He had normal facial sensations and the temporales, masseters, and pterygoids functioned normally. VII: He had left VII central facial paresis. VIII: He was able to hear and had no nystagmus. IX: The palate moved symmetrically on phonation. X: He had no hoarseness of voice. XI: The sternocleidomastoids and trapezii functioned normally. XII: The tongue was in the midline without any fasciculations or atrophy. MOTOR SYSTEM: The tone was normal in all four extremities. Examination of muscle mass revealed no focal wasting. He did, however, have generalized muscle wasting. Examination of power revealed grade 5/5 power except for grade 4/5 power in the left finger extensors and iliopsoas and grade 5-/5 power in the right iliopsoas. SENSORY EXAMINATION: He had intact sensations to pinprick and light touch. He was unable to cooperate for the sensory modalities. REFLEXES: Trace+ on the right and 1+ on the left at the biceps, triceps, brachioradialis, and knees, and 0 at both ankles. The plantar responses were flexor bilaterally. COORDINATION: He performed well on [id number]-[id number] testing. He was unable to perform [id number]-tf-kint testing. STANCE & GAIT: Could not be tested. DIAGNOSTIC IMPRESSION: 1. Mr. Kirby Mg is an 82-year-old, right-handed, gentleman who does have a prior history of adenocarcinoma of the lung which is in remission now, cognitive dysfunction that started in January 2016 and rapidly progressed, and a single generalized tonic-clonic seizure in February 2016. The patient was in a rehabilitation facility where he was noted to have decline in cognitive function and was also having some abnormal jerking movements of one of his upper extremities; his daughter thinks the right. Since he has been at [facility], his condition seems to have improved. 2. On neurological examination, at this time, he demonstrates problems with orientation, recent and remote memory, visuospatial function, higher cognitive function and language. He also has left VII central facial paresis, quadriparesis involving the left side significantly more than the right and brisker reflexes on the left side. 3. The CT scan of the brain performed at [facility] reveals significant atrophy and deep white matter disease and in addition an area of calcification in the right parietal area. 4. Laboratory data obtained thus far revealed that he is mildly anemic with a hemoglobin of 13.3. When he came in, his WBC count was elevated to 14.7 with a left-sided shift. His electrolyte panel revealed his BUN elevated to 63 with a creatinine of 3.8, glucose of 154, and a proBNP of 872. His TSH is normal at 1.84. His urinalysis reveals that he does have a urinary tract infection with 1+ leukocyte esterase, 5 to 10 red blood cells, and 5 to 10 white blood cells per high-power field. 5. The patient's history and neurological examination are most compatible with a significant encephalopathic process due to right greater than left brain dysfunction, electrolyte imbalances, urinary tract infection, and possibly a postictal state. RECOMMENDATIONS: 1. Agree with management thus far. 2. Agree with treating the patient's urinary tract infection aggressively. 3. Agree with treating the patient's renal dysfunction as per Dr. Bowman. 4. At this point in time, Keppra 500 mg q.12 h. should be continued. 5. An EEG will be ordered to evaluate the patient for ongoing ictal or interictal phenomena. 6. The patient will be worked up thoroughly for other treatable causes of cognitive decline. Thank you for entrusting me with the care of Mr. Mg. I shall follow him with you. Ray Tuttle M.D., M.S.P.H. DR: JL JOB#: [id number] [email or web address]
[2016-02-26 04:00] VITALS: BP 137/82
--- NOTE | 2016-02-26 05:17 | Consultation ---
DATE OF CONSULTATION: 02/25/2016 UROLOGY CONSULTATION ATTENDING PHYSICIAN: Nelson Rodriguez M.D. REFERRING PHYSICIAN: Nelson Rodriguez M.D. CHIEF COMPLAINT/HISTORY OF PRESENT ILLNESS: Asked by Dr. Rodriguez to evaluate this 82-year-old gentleman regarding a history of BPH and urinary retention. Briefly the patient has a history of lung adenocarcinoma. He presented to the hospital with altered mental status and shortness of breath. He was admitted to the hospital for management of the same. The patient currently has a history of BPH and was found to have some evidence of urinary tract infection and urinary retention. As such, I was asked to evaluate the patient. The patient is improved from his initial presentation of altered mental status, but is still not completely oriented with it. He answers simple questions without difficulty, but cannot handle anything regarding his medical conditions or what has transpired prior to him arriving at the hospital. Most information is gathered from the chart. PAST MEDICAL HISTORY: 1. Organic brain syndrome. 2. Lung adenocarcinoma. 3. Seizures. 4. Hydrocephalus. 5. Constipation. 6. BPH. 7. Hypothyroidism. 8. Insomnia. PAST SURGICAL HISTORY: Uncertain. MEDICATIONS: Please see chart for current medications and administration details. ALLERGIES: No known drug allergies. SOCIAL HISTORY: Unobtainable. FAMILY HISTORY: Unobtainable. REVIEW OF SYSTEMS: A 12-system review of systems could not really be completed, as the patient is uncooperative with questioning. PHYSICAL EXAMINATION: GENERAL: The patient is an elderly gentleman, awake and alert, but not oriented. No obvious distress. HEENT: Normocephalic and atraumatic. Oropharynx clear. NECK: Supple. CHEST: Within normal limits. ABDOMEN: Soft, flat, nontender, and nondistended. EXTREMITIES: Warm and well perfused. No cyanosis, clubbing, or edema. BACK: No CVA tenderness to percussion. NEUROLOGIC: Notable for confusion and evidence of organic brain syndrome. GENITOURINARY: Grossly normal. Normal male phallus. No discharge, lesions, or curvature. There is a Madison catheter in place with clear yellow urine output. There are bilateral descended testes and cord structures with no masses or tenderness to palpation. LABORATORY DATA: White blood cell count 9.5, hematocrit 40.1, and platelets 205,000. PT 11.4, INR 1.1, and PTT 35. Urinalysis showed specific gravity 1.020 and pH 5.0. Dip test notable for 2+ protein, 4+ occult blood, and 1+ leukocyte esterase. Microanalysis with 5 to 10 white and red blood cells per high-power field and few bacteria seen. Sodium 144, potassium 3.9, chloride 104, bicarbonate 23, BUN 63, creatinine 2.4, and glucose 109. LFTs within normal limits. Calcium 9.8. RPR pending. DIAGNOSTIC IMAGING: CT scan of the head reveals no intracranial bleed, mass effect, or edema. ASSESSMENT AND PLAN: In summary, the patient is an 82-year-old gentleman with a history of lung cancer who is presenting with shortness of breath and altered mental status consistent with an infection. He was admitted for management of the same. He cannot provide any information, but apparently has a history of benign prostatic hypertrophy and some difficulty urinating. Physical exam is unremarkable outside of neurologic dysfunction and organic brain syndrome. Laboratory data is notable for evidence of possible urinary tract infection. Diagnostic imaging, which is a head CT scan, does not reveal evidence of mass, bleed, or midline shift. The catheter can be kept in place for now. The patient should be continued on Proscar as is being done. Additionally he should be continued on antibiotics with Zosyn and vancomycin, as this is excellent coverage until his cultures come back. Then, the antibiotic can be adjusted as necessary. Once the patient's mental status has improved, we can consider a trial of void at that time. Thank you for allowing me to participate in the care of this unfortunate gentleman. Please do not hesitate to contact me with any questions that you further have regarding his care. I will be happy to see him with you as needed. Daniele Galo M.D. DR: PATRICK JOB#: [id number] CC:
[2016-02-26] MEDS: D5W IVPB SCH ×3 (06:14→22:33)
[2016-02-26] MEDS: ZOSYN IVPB SCH ×3 (06:14→22:33)
[2016-02-26] MEDS: D5 1/2NS 1,000 ML IV SCH ×2 (06:14→18:17)
[2016-02-26 07:11] LABS: BASOPHILS % (AUTO) 0.9 % (0.0-2.0); EOSINOPHILS % (AUTO) 2.6 % (0.0-3.0); LYMPHOCYTES % (AUTO) 7.3 % (20.0-45.0); MEAN CORPUSCULAR HEMOGLOBIN 27.9 PG (27.0-31.0); MEAN CORPUSCULAR HGB CONC 32.5 G/DL (32.0-36.0); MEAN CORPUSCULAR VOLUME 86 FL (80-99); MEAN PLATELET VOLUME 6.8 FL (6.5-10.1); NEUTROPHILS % (AUTO) 80.3 % (45.0-75.0); PLATELET COUNT 214 K/UL (150-450); RED BLOOD COUNT 4.63 M/UL (4.70-6.10); WHITE BLOOD COUNT 6.7 K/UL (4.8-10.8)
[2016-02-26 07:23] LABS: ALANINE AMINOTRANSFERASE 11 U/L (3-41); ALBUMIN/GLOBULIN RATIO 1.1 (1.0-2.7); ANION GAP 15 (5-15); ASPARTATE AMINO TRANSFERASE 10 U/L (5-40); CALCIUM 9.8 mg/dL (8.6-10.2); CARBON DIOXIDE 25 mEQ/L (20-30); CHLORIDE 104 mEQ/L (98-107); CREATININE 1.7 mg/dL (0.7-1.2); HEMOLYSIS 3; PHOSPHORUS 5.1 mg/dL (2.5-4.8); POTASSIUM 3.7 mEQ/L (3.4-4.9); SODIUM 144 mEQ/L (135-145); TOTAL PROTEIN 6.3 g/dL (6.6-8.7); URIC ACID 6.3 mg/dL (3.0-7.5)
[2016-02-26 07:57] LABS: HEMOGLOBIN A1C 5.2 % (< 6.0)
[2016-02-26 08:00] VITALS: BP 140/88
[2016-02-26] MEDS: Aspirin Baby 81mg ORAL SCH (09:07)
[2016-02-26] MEDS: Heparin 5000 units/ml inj SUBQ SCH ×2 (09:08→20:50)
[2016-02-26] MEDS: levETIRAcetam 500mg/5ml Liquid GT SCH ×2 (10:21→18:17)
--- NOTE | 2016-02-26 10:38 | General Progress Note ---
Assessment/Plan Problem List: (1) Urinary tract infection ICD Codes: N39.0 - Urinary tract infection, site not specified SNOMED: 44352856 (2) Sepsis ICD Codes: A41.9 - Sepsis, unspecified organism SNOMED: 32612907 (3) Altered level of consciousness ICD Codes: R40.4 - Transient alteration of awareness SNOMED: 3010898 (4) Adenocarcinoma ICD Codes: C80.1 - Malignant (primary) neoplasm, unspecified SNOMED: 51551422, 189066844, 068259774 (5) Acute encephalopathy ICD Codes: G93.40 - Encephalopathy, unspecified SNOMED: 3613208 Status: progressing Assessment/Plan still confused uti abx per id sepsis vitals holding Subjective ROS Limited/Unobtainable: Yes Allergies: Coded Allergies: No Known Allergies (Unverified , 02/24/16) Objective Last 24 Hour Vital Signs Date Time Temp Pulse Resp B/P Pulse Ox O2 Delivery O2 Flow Rate FiO2 02/26/16 08:00 98.2 76 20 140/88 95 Room Air 02/26/16 04:00 97.0 63 20 137/82 97 Room Air 02/26/16 00:00 97.5 75 16 139/86 95 Room Air 02/25/16 20:00 97.9 81 19 136/76 97 Room Air 02/25/16 16:23 97.7 77 18 124/81 96 Room Air 02/25/16 13:03 97.2 73 20 118/72 96 Room Air 02/25/16 12:00 75 Intake and Output 02/25/16 02/26/16 19:00 07:00 Intake Total 705.0 ml 845.0 ml Output Total 300 ml 400 ml Balance 405.0 ml 445.0 ml Intake Oral 120 ml 360 ml IV Total 585.0 ml 485.0 ml Output Urine Total 300 ml 400 ml Laboratory Tests 02/25/16 19:00: Urine Eosinophils None seen, Urine Random Sodium 61 02/26/16 04:12: Urine Eosinophils None seen 02/26/16 05:20: White Blood Count 6.7, Red Blood Count 4.63L, Hemoglobin 12.9L, Hematocrit 39.8L , Mean Corpuscular Volume 86, Mean Corpuscular Hemoglobin 27.9, Mean Corpuscular Hemoglobin Concent 32.5, Red Cell Distribution Width 14.0, Platelet Count 214, Mean Platelet Volume 6.8, Neutrophils (%) (Auto) 80.3H, Lymphocytes ( %) (Auto) 7.3L, Monocytes (%) (Auto) 9.0, Eosinophils (%) (Auto) 2.6, Basophils (%) (Auto) 0.9, Sodium Level 144, Potassium Level 3.7, Chloride Level 104, Carbon Dioxide Level 25, Anion Gap 15, Blood Urea Nitrogen 54H, Creatinine 1.7H , Estimat Glomerular Filtration Rate , Glucose Level 107H, Hemoglobin A1c 5.2, Uric Acid 6.3, Calcium Level 9.8, Phosphorus Level 5.1H, Magnesium Level 2.0, Total Bilirubin 0.6, Gamma Glutamyl Transpeptidase 19, Aspartate Amino Transf ( AST/SGOT) 10, Alanine Aminotransferase (ALT/SGPT) 11, Alkaline Phosphatase 54, C -Reactive Protein, Quantitative 9.0H, Pro-B-Type Natriuretic Peptide 158, Total Protein 6.3L, Albumin 3.4L, Globulin 2.9, Albumin/Globulin Ratio 1.1 Height (Feet): 5 Height (Inches): 3.00 Weight (Pounds): 142 General Appearance: confused Respiratory/Chest: lungs clear Abdomen: soft Nelson Rodriguez MD Feb 26, 2016 10:38
--- NOTE | 2016-02-26 10:59 | General Progress Note ---
Assessment/Plan Status: stable Status Narrative MS improved - Cr 3.8 down to 1.7 Assessment/Plan status: ---Acute renal failure due to ? Obstruction and Dehydration- Mainly prerenal picture- Other; - Acute encephalopathy - Urinary tract infection / Sepsis - Altered level of consciousness / Encephalopathy - Adenocarcinoma Plan: Hydrate- Avoid Nephrotoxics- Antibiotics- Urine studies- ? DC planning Subjective ROS Limited/Unobtainable: No Constitutional: Reports: malaise, weakness Allergies: Coded Allergies: No Known Allergies (Unverified , 02/24/16) Objective Last 24 Hour Vital Signs Date Time Temp Pulse Resp B/P Pulse Ox O2 Delivery O2 Flow Rate FiO2 02/26/16 08:00 98.2 76 20 140/88 95 Room Air 02/26/16 04:00 97.0 63 20 137/82 97 Room Air 02/26/16 00:00 97.5 75 16 139/86 95 Room Air 02/25/16 20:00 97.9 81 19 136/76 97 Room Air 02/25/16 16:23 97.7 77 18 124/81 96 Room Air 02/25/16 13:03 97.2 73 20 118/72 96 Room Air 02/25/16 12:00 75 Intake and Output 02/25/16 02/26/16 19:00 07:00 Intake Total 705.0 ml 845.0 ml Output Total 300 ml 400 ml Balance 405.0 ml 445.0 ml Intake Oral 120 ml 360 ml IV Total 585.0 ml 485.0 ml Output Urine Total 300 ml 400 ml Laboratory Tests 02/25/16 19:00: Urine Eosinophils None seen, Urine Random Sodium 61 02/26/16 04:12: Urine Eosinophils None seen 02/26/16 05:20: White Blood Count 6.7, Red Blood Count 4.63L, Hemoglobin 12.9L, Hematocrit 39.8L , Mean Corpuscular Volume 86, Mean Corpuscular Hemoglobin 27.9, Mean Corpuscular Hemoglobin Concent 32.5, Red Cell Distribution Width 14.0, Platelet Count 214, Mean Platelet Volume 6.8, Neutrophils (%) (Auto) 80.3H, Lymphocytes ( %) (Auto) 7.3L, Monocytes (%) (Auto) 9.0, Eosinophils (%) (Auto) 2.6, Basophils (%) (Auto) 0.9, Sodium Level 144, Potassium Level 3.7, Chloride Level 104, Carbon Dioxide Level 25, Anion Gap 15, Blood Urea Nitrogen 54H, Creatinine 1.7H , Estimat Glomerular Filtration Rate , Glucose Level 107H, Hemoglobin A1c 5.2, Uric Acid 6.3, Calcium Level 9.8, Phosphorus Level 5.1H, Magnesium Level 2.0, Total Bilirubin 0.6, Gamma Glutamyl Transpeptidase 19, Aspartate Amino Transf ( AST/SGOT) 10, Alanine Aminotransferase (ALT/SGPT) 11, Alkaline Phosphatase 54, C -Reactive Protein, Quantitative 9.0H, Pro-B-Type Natriuretic Peptide 158, Total Protein 6.3L, Albumin 3.4L, Globulin 2.9, Albumin/Globulin Ratio 1.1 Height (Feet): 5 Height (Inches): 3.00 Weight (Pounds): 142 General Appearance: no apparent distress Cardiovascular: normal rate Abdomen: soft Objective other PE not changed JUAN ALBERTO PUGH Feb 26, 2016 10:59
[2016-02-26 12:00] VITALS: BP 134/87
--- NOTE | 2016-02-26 12:20 | Neurology Progress Note ---
Interim History Interim History Interim History Mr. Mg feels better. He is still subdued. 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 He continues to be generally weak. He has exhibited no abnormal movements as per his nurse. Review of Systems Neuro Review of Systems Benign. Objective Physical Exam Last Vital Signs Date Time Temp Pulse Resp B/P Pulse Ox O2 Delivery O2 Flow Rate FiO2 02/26/16 08:00 98.2 76 20 140/88 95 Room Air 02/24/16 22:43 10.0 100 Laboratory Tests Test 02/25/16 19:00 02/26/16 04:12 02/26/16 05:20 Urine Eosinophils None seen None seen Urine Random Sodium 61 mmol/L White Blood Count 6.7 K/UL (4.8-10.8) Red Blood Count 4.63 M/UL (4.70-6.10) L Hemoglobin 12.9 G/DL (14.2-18.0) L Hematocrit 39.8 % (42.0-52.0) L Mean Corpuscular Volume 86 FL (80-99) Mean Corpuscular Hemoglobin 27.9 PG (27.0-31.0) Mean Corpuscular Hemoglobin Concent 32.5 G/DL (32.0-36.0) Red Cell Distribution Width 14.0 % (11.6-14.8) Platelet Count 214 K/UL (150-450) Mean Platelet Volume 6.8 FL (6.5-10.1) Neutrophils (%) (Auto) 80.3 % (45.0-75.0) H Lymphocytes (%) (Auto) 7.3 % (20.0-45.0) L Monocytes (%) (Auto) 9.0 % (1.0-10.0) Eosinophils (%) (Auto) 2.6 % (0.0-3.0) Basophils (%) (Auto) 0.9 % (0.0-2.0) Sodium Level 144 mEQ/L (135-145) Potassium Level 3.7 mEQ/L (3.4-4.9) Chloride Level 104 mEQ/L (98-107) Carbon Dioxide Level 25 mEQ/L (20-30) Anion Gap 15 (5-15) Blood Urea Nitrogen 54 mg/dL (7-23) H Creatinine 1.7 mg/dL (0.7-1.2) H Estimat Glomerular Filtration Rate mL/min (>60) Glucose Level 107 mg/dL (74-106) H Hemoglobin A1c 5.2 % (< 6.0) Uric Acid 6.3 mg/dL (3.0-7.5) Calcium Level 9.8 mg/dL (8.6-10.2) Phosphorus Level 5.1 mg/dL (2.5-4.8) H Magnesium Level 2.0 mg/dL (1.7-2.5) Total Bilirubin 0.6 mg/dL (0.0-1.2) Gamma Glutamyl Transpeptidase 19 U/L (8-61) Aspartate Amino Transf (AST/SGOT) 10 U/L (5-40) Alanine Aminotransferase (ALT/SGPT) 11 U/L (3-41) Alkaline Phosphatase 54 U/L (40-129) C-Reactive Protein, Quantitative 9.0 mg/dL (< 0.5) H Pro-B-Type Natriuretic Peptide 158 pg/mL (0-450) Total Protein 6.3 g/dL (6.6-8.7) L Albumin 3.4 g/dL (3.5-5.2) L Globulin 2.9 g/dL Albumin/Globulin Ratio 1.1 (1.0-2.7) Neurologic Exam Objective PHYSICAL EXAMINATION: GENERAL: He is a well-developed, well-nourished, pleasant gentleman, lying in bed, in no acute distress. HEAD: Normocephalic and atraumatic. EENT: Examination benign. NECK: No neck rigidity was observed. NEUROLOGIC EXAMINATION: MENTAL STATUS EXAMINATION: He was awake, but not completely alert. He was oriented to self and hospital. He did not know the name of the hospital. He had no idea of what the date, month, or year was. He was able to recall 3/3 words immediately, but could not remember any of them in 1 minute and 3 minutes. He was unable to tell me who the present president was or who prior presidents were. His mathematical skills were impaired. His visuospatial function was also impaired. SPEECH: He had a mild dysarthria. LANGUAGE: He had anomia for low-frequency words. CRANIAL NERVE EXAMINATION: II: The visual gates were intact to confrontation testing. III, IV & : External ocular movements are full and the pupils 3 mm in diameter, equal, round, regular, and reactive to light. V: He had normal facial sensations and the temporales, masseters, and pterygoids functioned normally. VII: He had left VII central facial paresis. VIII: He was able to hear and had no nystagmus. IX: The palate moved symmetrically on phonation. X: He had no hoarseness of voice. XI: The sternocleidomastoids and trapezii functioned normally. XII: The tongue was in the midline without any fasciculations or atrophy. MOTOR SYSTEM: The tone was normal in all four extremities. Examination of muscle mass revealed no focal wasting. He did, however, have generalized muscle wasting. Examination of power revealed grade 5/5 power except for grade 4/5 power in the left finger extensors and iliopsoas and grade 5-/5 power in the right iliopsoas. SENSORY EXAMINATION: He had intact sensations to pinprick and light touch. He was unable to cooperate for the sensory modalities. REFLEXES: Trace+ on the right and 1+ on the left at the biceps, triceps, brachioradialis, and knees, and 0 at both ankles. The plantar responses were flexor bilaterally. COORDINATION: He performed well on [id number] testing. He was unable to perform [id number] testing. STANCE & GAIT: Could not be tested. Impression/Recommendations Diagnostic Impression 1. Mr. Kirby Mg is an 82-year-old, right-handed, gentleman who does have a prior history of adenocarcinoma of the lung which is in remission now, cognitive dysfunction that started in January 2016 and rapidly progressed , and a single generalized tonic-clonic seizure in February 2016. The patient was in a rehabilitation facility where he was noted to have decline in cognitive function and was also having some abnormal jerking movements of one of his upper extremities; his daughter thinks the right. Since he has been at [facility], his condition seems to have improved. 2. He feels a little better today. However he continues to exhibit significant cognitive and motor dysfunction. 3. On neurological examination, at this time, he demonstrates problems with orientation, recent and remote memory, visuospatial function, higher cognitive function and language. He also has left VII central facial paresis, quadriparesis involving the left side significantly more than the right and brisker reflexes on the left side. 4. The CT scan of the brain performed at [facility] reveals significant atrophy and deep white matter disease and in addition an area of calcification in the right parietal area. 5. Laboratory data obtained thus far revealed that he is mildly anemic with a hemoglobin of 13.3. When he came in, his WBC count was elevated to 14.7 with a left-sided shift. His electrolyte panel revealed his BUN elevated to 63 with a creatinine of 3.8, glucose of 154, and a proBNP of 872. His TSH is normal at 1.84. His urinalysis reveals that he does have a urinary tract infection with 1 + leukocyte esterase, 5 to 10 red blood cells, and 5 to 10 white blood cells per high-power field. 6. The patient's history and neurological examination are most compatible with a significant encephalopathic process due to right greater than left brain dysfunction, electrolyte imbalances, urinary tract infection, and possibly a postictal state. Recommendations 1. Continue present management. 2. Continue treating the patient's urinary tract infection aggressively. 3. Continue treating the patient's renal dysfunction as per Dr. Bowman. 4. Continue Keppra 500 mg q.12 h 5. Will review EEG. 6. Mobilize with PT/OT. Ray Wong M.D., M.S.P.Yoan. RAY WONG Feb 26, 2016 12:20
--- NOTE | 2016-02-26 16:07 | Pulmonology Progress Note ---
Assessment/Plan Problems: (1) Acute encephalopathy (2) Urinary tract infection (3) Altered level of consciousness (4) SUSAN (acute kidney injury) (5) Adenocarcinoma Assessment/Plan Assessment/Plan telemetry monitoring check cultures IV antibiotics check electrolytes renal evaluation neuro evaluation dvt prophylaxis Subjective ROS Limited/Unobtainable: Yes Neurologic: Reports: confusion, weakness Allergies: Coded Allergies: No Known Allergies (Unverified , 02/24/16) Objective Last 24 Hour Vital Signs Date Time Temp Pulse Resp B/P Pulse Ox O2 Delivery O2 Flow Rate FiO2 02/26/16 12:00 98.1 86 20 134/87 96 Room Air 02/26/16 08:00 98.2 76 20 140/88 95 Room Air 02/26/16 04:00 97.0 63 20 137/82 97 Room Air 02/26/16 00:00 97.5 75 16 139/86 95 Room Air 02/25/16 20:00 97.9 81 19 136/76 97 Room Air 02/25/16 16:23 97.7 77 18 124/81 96 Room Air Intake and Output 02/25/16 02/26/16 19:00 07:00 Intake Total 705.0 ml 845.0 ml Output Total 300 ml 400 ml Balance 405.0 ml 445.0 ml Intake Oral 120 ml 360 ml IV Total 585.0 ml 485.0 ml Output Urine Total 300 ml 400 ml General Appearance: no acute distress HEENT: normocephalic, atraumatic, PERRL Respiratory/Chest: chest wall non-tender, decreased breath sounds, accessory muscle use Cardiovascular: normal peripheral pulses, normal rate, regular rhythm, no JVD Abdomen: normal bowel sounds, soft, non tender, no organomegaly Genitourinary: normal external genitalia Extremities: no cyanosis Neurologic/Psychiatric: processing specialist II-XII grossly normal, no motor/sensory deficits, disoriented, aphasia, depressed affect Microbiology Date/Time Source Procedure Growth Status 02/24/16 17:30 Blood Blood Culture - Preliminary NO GROWTH AFTER 24 HOURS Resulted 02/24/16 17:15 Blood Blood Culture - Preliminary NO GROWTH AFTER 24 HOURS Resulted 02/25/16 03:30 Nasal Nares Influenza Types A,B Antigen (IGNACIO) - Final Complete 02/24/16 18:20 Nasal Nares Influenza Types A,B Antigen (IGNACIO) - Final Complete Laboratory Tests 02/25/16 19:00: Urine Eosinophils None seen, Urine Random Sodium 61 02/26/16 04:12: Urine Eosinophils None seen 02/26/16 05:20: White Blood Count 6.7, Red Blood Count 4.63L, Hemoglobin 12.9L, Hematocrit 39.8L , Mean Corpuscular Volume 86, Mean Corpuscular Hemoglobin 27.9, Mean Corpuscular Hemoglobin Concent 32.5, Red Cell Distribution Width 14.0, Platelet Count 214, Mean Platelet Volume 6.8, Neutrophils (%) (Auto) 80.3H, Lymphocytes ( %) (Auto) 7.3L, Monocytes (%) (Auto) 9.0, Eosinophils (%) (Auto) 2.6, Basophils (%) (Auto) 0.9, Sodium Level 144, Potassium Level 3.7, Chloride Level 104, Carbon Dioxide Level 25, Anion Gap 15, Blood Urea Nitrogen 54H, Creatinine 1.7H , Estimat Glomerular Filtration Rate , Glucose Level 107H, Hemoglobin A1c 5.2, Uric Acid 6.3, Calcium Level 9.8, Phosphorus Level 5.1H, Magnesium Level 2.0, Total Bilirubin 0.6, Gamma Glutamyl Transpeptidase 19, Aspartate Amino Transf ( AST/SGOT) 10, Alanine Aminotransferase (ALT/SGPT) 11, Alkaline Phosphatase 54, C -Reactive Protein, Quantitative 9.0H, Pro-B-Type Natriuretic Peptide 158, Total Protein 6.3L, Albumin 3.4L, Globulin 2.9, Albumin/Globulin Ratio 1.1 Current Medications Medications (Trade) Dose Ordered Sig/Christina Route PRN Reason Start Time Stop Time Status Last Admin Dose Admin Acetaminophen (Tylenol) 650 mg Q4H PRN ORAL fever 02/24/16 22:45 03/25/16 22:44 Albuterol/ Ipratropium (DuoNeb 0.5-3(2.5)mg/3ml) 3 ml Q4H PRN HHN Shortness of Breath 02/24/16 22:45 02/29/16 22:44 Aspirin (ASA) 81 mg DAILY ORAL 02/25/16 09:00 03/26/16 08:59 02/26/16 09:07 Clonidine HCl (Catapres) 0.1 mg Q4H PRN ORAL For High Blood Pressure 02/24/16 22:45 03/25/16 22:44 Dextrose (Dextrose 50%) STAT PRN IV Hypoglycemia 02/24/16 22:45 03/25/16 22:44 Dextrose/Sodium Chloride (D5 0.45% NS) 1,000 ml @ 75 mls/hr [id number] IV 02/25/16 16:30 03/26/16 16:29 02/26/16 06:14 Finasteride (Proscar) 5 mg DAILY ORAL 02/25/16 09:00 03/26/16 08:59 02/26/16 10:20 Heparin Sodium (Porcine) (Heparin 5000 units/ml) 5,000 units EVERY 12 HOURS SUBQ 02/25/16 09:00 03/26/16 08:59 02/26/16 09:08 Levetiracetam (Keppra) 500 mg BID GT 02/25/16 09:00 03/26/16 08:59 02/26/16 10:21 Levothyroxine Sodium (Synthroid) 50 mcg ACBREAKFAST ORAL 02/25/16 06:30 03/26/16 06:29 02/26/16 06:14 Lorazepam (Ativan 2mg/ml 1ml) 0.5 mg Q4H PRN IV For Anxiety 02/24/16 22:45 03/02/16 22:44 Morphine Sulfate (Morphine Sulfate) 1 mg Q4H PRN IVP For Pain 7-10 02/24/16 22:45 03/02/16 22:44 Nitroglycerin (Ntg) 0.4 mg Q5M X 3 DOSES PRN SL Prn Chest Pain 02/24/16 22:45 03/25/16 22:44 Ondansetron HCl (Zofran) 4 mg Q6H PRN IVP Nausea & Vomiting 02/24/16 22:45 03/25/16 22:44 Pantoprazole 40 mg 40 mg DAILY ORAL 02/25/16 16:30 03/26/16 16:29 02/26/16 09:07 Piperacillin Sod/ Tazobactam Sod 3.375 gm/Dextrose 110 ml @ 27.5 mls/hr Q8HR IVPB 02/26/16 16:00 03/04/16 15:59 Polyethylene Glycol (Miralax) 17 gm HSPRN PRN ORAL Constipation 02/24/16 22:45 03/25/16 22:44 Promethazine HCl/ Codeine (Phenergan with Codeine) 5 ml Q4H PRN ORAL For Cough 02/24/16 22:45 03/25/16 22:44 Temazepam (Restoril) 15 mg HSPRN PRN ORAL Insomnia 02/24/16 22:45 03/02/16 22:44 Vancomycin HCl 1 ea 1 ea DAILY PRN MISC Per rx protocol 02/24/16 23:00 03/25/16 22:59 Vancomycin HCl/ Dextrose (Vancomycin/D5W) 275 ml @ 183.708 mls/hr Q24H IVPB 02/26/16 20:00 03/02/16 19:59 HELADIO AMBRIZ Feb 26, 2016 16:07
[2016-02-26 16:12] VITALS: BP 129/87
--- NOTE | 2016-02-26 17:24 | Infectious Diseases Prog Note ---
Assessment/Plan Problems: (1) Sepsis Assessment & Plan: await blood culture, and urine culture results , continue zosyn and vancomycin empirically for now. (2) Urinary tract infection Assessment & Plan: continue zosyn, await urine culture (3) SUSAN (acute kidney injury) Assessment & Plan: improving , suspect dehydration and obstruction related, continue IVF, monitor UOP, avoid nephrotoxic meds (4) Altered level of consciousness Assessment & Plan: due to the above, continue wide spectrum antibiotics and hydration, neurology is following (5) Adenocarcinoma Assessment & Plan: of the lung, S/P surgical resection, radiation and chemotherapy at [facility], unclear whether in remission or not, follow up with [facility] Subjective ROS Limited/Unobtainable: Yes Allergies: Coded Allergies: No Known Allergies (Unverified , 02/24/16) Subjective he was up in bed, awake and alert, denied any fever or chills, no cough, or SOB , no diarrhea Objective Vital Signs Last 24 Hour Vital Signs Date Time Temp Pulse Resp B/P Pulse Ox O2 Delivery O2 Flow Rate FiO2 02/26/16 16:12 97.0 82 18 129/87 95 Room Air 02/26/16 12:00 98.1 86 20 134/87 96 Room Air 02/26/16 08:00 98.2 76 20 140/88 95 Room Air 02/26/16 04:00 97.0 63 20 137/82 97 Room Air 02/26/16 00:00 97.5 75 16 139/86 95 Room Air 02/25/16 20:00 97.9 81 19 136/76 97 Room Air Height (Feet): 5 Height (Inches): 3.00 Weight (Pounds): 142 General Appearance: WD/WN, no acute distress HEENT: normocephalic, atraumatic, anicteric, mucous membranes moist Respiratory/Chest: chest wall non-tender, lungs clear, normal breath sounds, no respiratory distress, no accessory muscle use Cardiovascular: normal peripheral pulses, normal rate, regular rhythm, no gallop/murmur, no JVD Abdomen: normal bowel sounds, soft, non tender, no organomegaly, non distended , no mass, no scars Extremities: no cyanosis, no clubbing Skin: no rash, no lesions, no ulcers Microbiology Date/Time Source Procedure Growth Status 02/24/16 17:30 Blood Blood Culture - Preliminary NO GROWTH AFTER 24 HOURS Resulted 02/24/16 17:15 Blood Blood Culture - Preliminary NO GROWTH AFTER 24 HOURS Resulted 02/25/16 03:30 Nasal Nares Influenza Types A,B Antigen (IGNACIO) - Final Complete 02/24/16 18:20 Nasal Nares Influenza Types A,B Antigen (IGNACIO) - Final Complete Laboratory Tests Test 02/25/16 19:00 02/26/16 04:12 02/26/16 05:20 Urine Eosinophils None seen None seen Urine Random Sodium 61 mmol/L White Blood Count 6.7 K/UL (4.8-10.8) Red Blood Count 4.63 M/UL (4.70-6.10) L Hemoglobin 12.9 G/DL (14.2-18.0) L Hematocrit 39.8 % (42.0-52.0) L Mean Corpuscular Volume 86 FL (80-99) Mean Corpuscular Hemoglobin 27.9 PG (27.0-31.0) Mean Corpuscular Hemoglobin Concent 32.5 G/DL (32.0-36.0) Red Cell Distribution Width 14.0 % (11.6-14.8) Platelet Count 214 K/UL (150-450) Mean Platelet Volume 6.8 FL (6.5-10.1) Neutrophils (%) (Auto) 80.3 % (45.0-75.0) H Lymphocytes (%) (Auto) 7.3 % (20.0-45.0) L Monocytes (%) (Auto) 9.0 % (1.0-10.0) Eosinophils (%) (Auto) 2.6 % (0.0-3.0) Basophils (%) (Auto) 0.9 % (0.0-2.0) Sodium Level 144 mEQ/L (135-145) Potassium Level 3.7 mEQ/L (3.4-4.9) Chloride Level 104 mEQ/L (98-107) Carbon Dioxide Level 25 mEQ/L (20-30) Anion Gap 15 (5-15) Blood Urea Nitrogen 54 mg/dL (7-23) H Creatinine 1.7 mg/dL (0.7-1.2) H Estimat Glomerular Filtration Rate mL/min (>60) Glucose Level 107 mg/dL (74-106) H Hemoglobin A1c 5.2 % (< 6.0) Uric Acid 6.3 mg/dL (3.0-7.5) Calcium Level 9.8 mg/dL (8.6-10.2) Phosphorus Level 5.1 mg/dL (2.5-4.8) H Magnesium Level 2.0 mg/dL (1.7-2.5) Total Bilirubin 0.6 mg/dL (0.0-1.2) Gamma Glutamyl Transpeptidase 19 U/L (8-61) Aspartate Amino Transf (AST/SGOT) 10 U/L (5-40) Alanine Aminotransferase (ALT/SGPT) 11 U/L (3-41) Alkaline Phosphatase 54 U/L (40-129) C-Reactive Protein, Quantitative 9.0 mg/dL (< 0.5) H Pro-B-Type Natriuretic Peptide 158 pg/mL (0-450) Total Protein 6.3 g/dL (6.6-8.7) L Albumin 3.4 g/dL (3.5-5.2) L Globulin 2.9 g/dL Albumin/Globulin Ratio 1.1 (1.0-2.7) Current Medications Medications (Trade) Dose Ordered Sig/Christina Route PRN Reason Start Time Stop Time Status Last Admin Dose Admin Acetaminophen (Tylenol) 650 mg Q4H PRN ORAL fever 02/24/16 22:45 03/25/16 22:44 Albuterol/ Ipratropium (DuoNeb 0.5-3(2.5)mg/3ml) 3 ml Q4H PRN HHN Shortness of Breath 02/24/16 22:45 02/29/16 22:44 Aspirin (ASA) 81 mg DAILY ORAL 02/25/16 09:00 03/26/16 08:59 02/26/16 09:07 Clonidine HCl (Catapres) 0.1 mg Q4H PRN ORAL For High Blood Pressure 02/24/16 22:45 03/25/16 22:44 Dextrose (Dextrose 50%) STAT PRN IV Hypoglycemia 02/24/16 22:45 03/25/16 22:44 Dextrose/Sodium Chloride (D5 0.45% NS) 1,000 ml @ 75 mls/hr [id number] IV 02/25/16 16:30 03/26/16 16:29 02/26/16 06:14 Finasteride (Proscar) 5 mg DAILY ORAL 02/25/16 09:00 03/26/16 08:59 02/26/16 10:20 Heparin Sodium (Porcine) (Heparin 5000 units/ml) 5,000 units EVERY 12 HOURS SUBQ 02/25/16 09:00 03/26/16 08:59 02/26/16 09:08 Levetiracetam (Keppra) 500 mg BID GT 02/25/16 09:00 03/26/16 08:59 02/26/16 10:21 Levothyroxine Sodium (Synthroid) 50 mcg ACBREAKFAST ORAL 02/25/16 06:30 03/26/16 06:29 02/26/16 06:14 Lorazepam (Ativan 2mg/ml 1ml) 0.5 mg Q4H PRN IV For Anxiety 02/24/16 22:45 03/02/16 22:44 Morphine Sulfate (Morphine Sulfate) 1 mg Q4H PRN IVP For Pain 7-10 02/24/16 22:45 03/02/16 22:44 Nitroglycerin (Ntg) 0.4 mg Q5M X 3 DOSES PRN SL Prn Chest Pain 02/24/16 22:45 03/25/16 22:44 Ondansetron HCl (Zofran) 4 mg Q6H PRN IVP Nausea & Vomiting 02/24/16 22:45 03/25/16 22:44 Pantoprazole 40 mg 40 mg DAILY ORAL 02/25/16 16:30 03/26/16 16:29 02/26/16 09:07 Piperacillin Sod/ Tazobactam Sod 3.375 gm/Dextrose 110 ml @ 27.5 mls/hr Q8HR IVPB 02/26/16 16:00 03/04/16 15:59 02/26/16 16:43 Polyethylene Glycol (Miralax) 17 gm HSPRN PRN ORAL Constipation 02/24/16 22:45 03/25/16 22:44 Promethazine HCl/ Codeine (Phenergan with Codeine) 5 ml Q4H PRN ORAL For Cough 02/24/16 22:45 03/25/16 22:44 Temazepam (Restoril) 15 mg HSPRN PRN ORAL Insomnia 02/24/16 22:45 03/02/16 22:44 Vancomycin HCl 1 ea 1 ea DAILY PRN MISC Per rx protocol 02/24/16 23:00 03/25/16 22:59 Vancomycin HCl/ Dextrose (Vancomycin/D5W) 275 ml @ 183.708 mls/hr Q24H IVPB 02/26/16 20:00 03/02/16 19:59 Nabor Gonzales M.D. Feb 26, 2016 17:24
[2016-02-26 20:00] VITALS: BP 114/72
[2016-02-26] MEDS: Vancomycin 750mg/D5W 275ml IVPB SCH ×2 (20:00)
--- NOTE | 2016-02-26 20:27 | Electroencephalogram ---
DATE OF PROCEDURE: 02/25/2016 REQUESTING PHYSICIAN: Nelson Rodriguez M.D. HISTORY: This EEG was performed on an 82-year-old gentleman who has recently had a relatively rapid progress in cognitive and motor dysfunction. He also had seizure in the early part of this month. The patient does have right parietal calcified lesion. He has exhibited some abnormal limb movements and alteration in mental state and thus this EEG was performed to evaluate the patient for ongoing ictal or interictal phenomena and to determine the degree and type of encephalopathy. TECHNICAL NOTE: This EEG was performed on a [employer] with electrodes placed on the scalp according to the International 10-20 system. [id number] and [id number] montages were used. The EEG was technically satisfactory and was performed in the awake and drowsy states. OBSERVATIONS: In the reportedly awake state, the background activity consisted of a 4-5 Hz theta with triphasic waveforms. Drowsiness was characterized by slowing of the background predominantly in the delta and theta range with continued triphasic waveforms. No definite focal abnormalities or epileptiform discharges were seen. IMPRESSION: This is an abnormal EEG characterized by: 1. Slowing of the background in the 4-5 Hz theta range in the best awake state. 2. The presence of triphasic waveforms with an anterior to posterior gradient seen throughout the tracing. COMMENT: This study is consistent with an encephalopathy of a moderately severe degree most probably with toxic metabolic component as evidenced by the triphasic waveforms . Ray Tuttle M.D., M.S.P.H. DR: Fiona JOB#: [id number]
[2016-02-27] VITALS: BP 124/74
[2016-02-27 04:00] VITALS: BP 141/93
[2016-02-27] MEDS: D5W IVPB SCH ×2 (05:58→14:00)
[2016-02-27] MEDS: ZOSYN IVPB SCH ×2 (05:58→14:00)
--- NOTE | 2016-02-27 07:49 | Pulmonology Progress Note ---
Assessment/Plan Assessment/Plan ASSESSMENT sepsis UTI acute encephalopathy 2 to infectious process on chronic OBS ARF on [facility]- improved lung adenocarcinoma with hx of lung surgery dysphagia high aspiration risk BPH urinary retention hypothyroidism OBS seizure disorder PLAN OF CARE MS floor O2 HHN prn antitussive prn CXR today CT head no acute intracranial pathology abx, ID follows blood cx and influenza screen negative, urine cx pending IVF, renal parameters improving, creat trending down nephro follows renal impairment likely 2 to dehydration monitor renal parameters. lytes avoid nephrotoxic seizure precautions, continue Keppra neuro follows EEG abnormal c/w moderate to severe encephalopathy swallow eval and VSSE noted, evidence of dysphagia, and high aspiration risk diet as per ST recommendations PT/OT /ST DVT, GI prophylaxis case discussed and evaluated by supervising physician Subjective Allergies: Coded Allergies: No Known Allergies (Unverified , 02/24/16) Subjective afebrile, no leukocytosis creat down to 1.7 answers simple questions Objective Last 24 Hour Vital Signs Date Time Temp Pulse Resp B/P Pulse Ox O2 Delivery O2 Flow Rate FiO2 02/27/16 04:00 97.3 76 19 141/93 96 Room Air 02/27/16 00:00 98.1 81 20 124/74 96 Room Air 02/26/16 20:00 97.7 89 18 114/72 96 Room Air 02/26/16 16:12 97.0 82 18 129/87 95 Room Air 02/26/16 12:00 98.1 86 20 134/87 96 Room Air 02/26/16 08:00 98.2 76 20 140/88 95 Room Air Intake and Output 02/26/16 02/27/16 19:00 07:00 Intake Total 337.5 ml 569.916 ml Output Total 925 ml Balance 337.5 ml -355.084 ml Intake Oral 200 ml 120 ml IV Total 137.5 ml 449.916 ml Output Urine Total 925 ml General Appearance: no acute distress, other - weak, poorly but responsive, answers simple questions HEENT: normocephalic, atraumatic, anicteric Respiratory/Chest: lungs clear, no respiratory distress, no accessory muscle use Cardiovascular: normal peripheral pulses, normal rate, regular rhythm, no JVD Abdomen: normal bowel sounds, soft, non tender Genitourinary: normal external genitalia, other - Madison Neurologic/Psychiatric: abnormal gait, alert - confused Musculoskeletal: atrophy - BLE Microbiology Date/Time Source Procedure Growth Status 02/24/16 17:30 Blood Blood Culture - Preliminary NO GROWTH AFTER 48 HOURS Resulted 02/24/16 17:15 Blood Blood Culture - Preliminary NO GROWTH AFTER 48 HOURS Resulted 02/25/16 03:30 Nasal Nares Influenza Types A,B Antigen (IGNACIO) - Final Complete 02/24/16 18:20 Nasal Nares Influenza Types A,B Antigen (IGNACIO) - Final Complete 02/25/16 00:05 Rectum VRE Culture - Final NO VANCOMYCIN RESISTANT ENTEROCOCCUS ... Complete Laboratory Tests 02/26/16 22:00: Urine Eosinophils [Pending] 02/27/16 04:15: Urine Eosinophils [Pending] Current Medications Medications (Trade) Dose Ordered Sig/Christina Route PRN Reason Start Time Stop Time Status Last Admin Dose Admin Acetaminophen (Tylenol) 650 mg Q4H PRN ORAL fever 02/24/16 22:45 03/25/16 22:44 Albuterol/ Ipratropium (DuoNeb 0.5-3(2.5)mg/3ml) 3 ml Q4H PRN HHN Shortness of Breath 02/24/16 22:45 02/29/16 22:44 Aspirin (ASA) 81 mg DAILY ORAL 02/25/16 09:00 03/26/16 08:59 02/26/16 09:07 Clonidine HCl (Catapres) 0.1 mg Q4H PRN ORAL For High Blood Pressure 02/24/16 22:45 03/25/16 22:44 Dextrose (Dextrose 50%) STAT PRN IV Hypoglycemia 02/24/16 22:45 03/25/16 22:44 Dextrose/Sodium Chloride (D5 0.45% NS) 1,000 ml @ 75 mls/hr [id number] IV 02/25/16 16:30 03/26/16 16:29 02/26/16 18:17 Finasteride (Proscar) 5 mg DAILY ORAL 02/25/16 09:00 03/26/16 08:59 02/26/16 10:20 Heparin Sodium (Porcine) (Heparin 5000 units/ml) 5,000 units EVERY 12 HOURS SUBQ 02/25/16 09:00 03/26/16 08:59 02/26/16 20:50 Levetiracetam (Keppra) 500 mg BID GT 02/25/16 09:00 03/26/16 08:59 02/26/16 18:17 Levothyroxine Sodium (Synthroid) 50 mcg ACBREAKFAST ORAL 02/25/16 06:30 03/26/16 06:29 02/27/16 05:58 Lorazepam (Ativan 2mg/ml 1ml) 0.5 mg Q4H PRN IV For Anxiety 02/24/16 22:45 03/02/16 22:44 Morphine Sulfate (Morphine Sulfate) 1 mg Q4H PRN IVP For Pain 7-10 02/24/16 22:45 03/02/16 22:44 Nitroglycerin (Ntg) 0.4 mg Q5M X 3 DOSES PRN SL Prn Chest Pain 02/24/16 22:45 03/25/16 22:44 Ondansetron HCl (Zofran) 4 mg Q6H PRN IVP Nausea & Vomiting 02/24/16 22:45 03/25/16 22:44 Pantoprazole 40 mg 40 mg DAILY ORAL 02/25/16 16:30 03/26/16 16:29 02/26/16 09:07 Piperacillin Sod/ Tazobactam Sod 3.375 gm/Dextrose 110 ml @ 27.5 mls/hr Q8HR IVPB 02/26/16 16:00 03/04/16 15:59 02/27/16 05:58 Polyethylene Glycol (Miralax) 17 gm HSPRN PRN ORAL Constipation 02/24/16 22:45 03/25/16 22:44 Promethazine HCl/ Codeine (Phenergan with Codeine) 5 ml Q4H PRN ORAL For Cough 02/24/16 22:45 03/25/16 22:44 Temazepam (Restoril) 15 mg HSPRN PRN ORAL Insomnia 02/24/16 22:45 03/02/16 22:44 Vancomycin HCl 1 ea 1 ea DAILY PRN MISC Per rx protocol 02/24/16 23:00 03/25/16 22:59 Vancomycin HCl/ Dextrose (Vancomycin/D5W) 275 ml @ 183.708 mls/hr Q24H IVPB 02/26/16 20:00 03/02/16 19:59 02/26/16 20:00 Tian (Gwendolyn),Latosha CALL Feb 27, 2016 07:49
[2016-02-27 08:00] VITALS: BP 145/85
[2016-02-27] MEDS: Aspirin Baby 81mg ORAL SCH (08:35)
[2016-02-27] MEDS: D5 1/2NS 1,000 ML IV SCH ×2 (08:35→20:54)
[2016-02-27] MEDS: levETIRAcetam 500mg/5ml Liquid GT SCH ×2 (08:35→18:30)
[2016-02-27] MEDS: Heparin 5000 units/ml inj SUBQ SCH ×2 (08:37→20:54)
[2016-02-27] MEDS ORDERED: DuoNeb 0.5-3(2.5)mg/3ml neb HHN PRN (10:45)
--- NOTE | 2016-02-27 11:23 | General Progress Note ---
Assessment/Plan Problem List: (1) Urinary tract infection ICD Codes: N39.0 - Urinary tract infection, site not specified SNOMED: 85064805 (2) Sepsis ICD Codes: A41.9 - Sepsis, unspecified organism SNOMED: 27560770 (3) Altered level of consciousness ICD Codes: R40.4 - Transient alteration of awareness SNOMED: 0609764 (4) Adenocarcinoma ICD Codes: C80.1 - Malignant (primary) neoplasm, unspecified SNOMED: 16424420, 884074810, 732795868 (5) Acute encephalopathy ICD Codes: G93.40 - Encephalopathy, unspecified SNOMED: 2934850 Status: progressing Assessment/Plan ams encephalopathy afebrile uti? Subjective ROS Limited/Unobtainable: Yes Constitutional: Reports: no symptoms Allergies: Coded Allergies: No Known Allergies (Unverified , 02/24/16) Objective Last 24 Hour Vital Signs Date Time Temp Pulse Resp B/P Pulse Ox O2 Delivery O2 Flow Rate FiO2 02/27/16 08:00 97.9 75 20 145/85 95 Room Air 02/27/16 04:00 97.3 76 19 141/93 96 Room Air 02/27/16 00:00 98.1 81 20 124/74 96 Room Air 02/26/16 20:00 97.7 89 18 114/72 96 Room Air 02/26/16 16:12 97.0 82 18 129/87 95 Room Air 02/26/16 12:00 98.1 86 20 134/87 96 Room Air Intake and Output 02/26/16 02/27/16 19:00 07:00 Intake Total 337.5 ml 569.916 ml Output Total 925 ml Balance 337.5 ml -355.084 ml Intake Oral 200 ml 120 ml IV Total 137.5 ml 449.916 ml Output Urine Total 925 ml Laboratory Tests 02/26/16 22:00: Urine Eosinophils [Pending] 02/27/16 04:15: Urine Eosinophils None seen Height (Feet): 5 Height (Inches): 3.00 Weight (Pounds): 142 EENT: PERRL/EOMI Cardiovascular: normal rate Respiratory/Chest: lungs clear Abdomen: soft Nelson Rodriguez MD Feb 27, 2016 11:23
[2016-02-27 12:00] VITALS: BP 133/87
--- NOTE | 2016-02-27 14:50 | Neurology Progress Note ---
Interim History Interim History Interim History Mr. Mg feels better. He is still very subdued. 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 He continues to be generally weak. He has exhibited no abnormal movements as per his ex-.. Review of Systems Neuro Review of Systems Benign. Objective Physical Exam Last Vital Signs Date Time Temp Pulse Resp B/P Pulse Ox O2 Delivery O2 Flow Rate FiO2 02/27/16 12:00 76 20 Room Air 21 02/27/16 12:00 97.0 133/87 95 02/24/16 22:43 10.0 Laboratory Tests Test 02/26/16 22:00 02/27/16 04:15 Urine Eosinophils Pending None seen Neurologic Exam Objective PHYSICAL EXAMINATION: GENERAL: He is a well-developed, well-nourished, pleasant gentleman, lying in bed, in no acute distress. HEAD: Normocephalic and atraumatic. EENT: Examination benign. NECK: No neck rigidity was observed. NEUROLOGIC EXAMINATION: MENTAL STATUS EXAMINATION: He was awake, but not completely alert. He was oriented to self and hospital. He did not know the name of the hospital. He had no idea of what the date, month, or year was. He was able to recall 3/3 words immediately, but could not remember any of them in 1 minute and 3 minutes. He was unable to tell me who the present president was or who prior presidents were. His mathematical skills were impaired. His visuospatial function was also impaired. SPEECH: He had a mild dysarthria. LANGUAGE: He had anomia for low-frequency words. CRANIAL NERVE EXAMINATION: II: The visual gates were intact to confrontation testing. III, IV & : External ocular movements are full and the pupils 3 mm in diameter, equal, round, regular, and reactive to light. V: He had normal facial sensations and the temporales, masseters, and pterygoids functioned normally. VII: He had left VII central facial paresis. VIII: He was able to hear and had no nystagmus. IX: The palate moved symmetrically on phonation. X: He had no hoarseness of voice. XI: The sternocleidomastoids and trapezii functioned normally. XII: The tongue was in the midline without any fasciculations or atrophy. MOTOR SYSTEM: The tone was normal in all four extremities. Examination of muscle mass revealed no focal wasting. He did, however, have generalized muscle wasting. Examination of power revealed appoximately grade 5/5 power except for grade 4/5 power in the left finger extensors and iliopsoas and grade 5-/5 power in the right iliopsoas. His effort was poor. SENSORY EXAMINATION: He had intact sensations to pinprick and light touch. He was unable to cooperate for the sensory modalities. REFLEXES: Trace+ on the right and 1+ on the left at the biceps, triceps, brachioradialis, and knees, and 0 at both ankles. The plantar responses were flexor bilaterally. COORDINATION: He performed well on [id number] testing. He was unable to perform [id number] testing. STANCE & GAIT: Could not be tested. Impression/Recommendations Diagnostic Impression 1. Mr. Kirby Mg is an 82-year-old, right-handed, gentleman who does have a prior history of adenocarcinoma of the lung which is in remission now, cognitive dysfunction that started in January 2016 and rapidly progressed , and a single generalized tonic-clonic seizure in February 2016. The patient was in a rehabilitation facility where he was noted to have decline in cognitive function and was also having some abnormal jerking movements of one of his upper extremities; his daughter thinks the right. Since he has been at [facility], his condition seems to have improved. 2. He feels a little better today. However he continues to exhibit significant cognitive and motor dysfunction. 3. On neurological examination, at this time, he demonstrates problems with orientation, recent and remote memory, visuospatial function, higher cognitive function and language. He also has left VII central facial paresis, quadriparesis involving the left side significantly more than the right and brisker reflexes on the left side. 4. The CT scan of the brain performed at [facility] reveals significant atrophy and deep white matter disease and in addition an area of calcification in the right parietal area. 5. Laboratory data obtained thus far revealed that he is mildly anemic with a hemoglobin of 13.3. When he came in, his WBC count was elevated to 14.7 with a left-sided shift. His electrolyte panel revealed his BUN elevated to 63 with a creatinine of 3.8, glucose of 154, and a proBNP of 872. His TSH is normal at 1.84. His urinalysis reveals that he does have a urinary tract infection with 1 + leukocyte esterase, 5 to 10 red blood cells, and 5 to 10 white blood cells per high-power field. 6. The EEG revealed a moderately severe toxic/metabolic encephalopathy 7. The patient's history and neurological examination are most compatible with a significant encephalopathic process due to right greater than left brain dysfunction, electrolyte imbalances, urinary tract infection, and possibly a postictal state. Recommendations 1. Continue present management. 2. Continue treating the patient's urinary tract infection aggressively. 3. Continue treating the patient's renal dysfunction as per Dr. Bowman. 4. Continue Keppra 500 mg q.12 h 5. Check ammonia level. 6. Mobilize with PT/OT. Ray Wong M.D., M.S.P.H. RAY WONG Feb 27, 2016 14:50
[2016-02-27 16:00] VITALS: BP 137/75
--- NOTE | 2016-02-27 16:13 | General Progress Note ---
Assessment/Plan Status: stable Assessment/Plan status: ---Acute renal failure due to ? Obstruction and Dehydration- Mainly prerenal picture- resolving Other; - Acute encephalopathy - Urinary tract infection / Sepsis - Altered level of consciousness / Encephalopathy - Adenocarcinoma Plan: no labs today- Hydrate- Avoid Nephrotoxics- Antibiotics- Urine studies- ? DC planning Subjective ROS Limited/Unobtainable: No Constitutional: Reports: malaise Allergies: Coded Allergies: No Known Allergies (Unverified , 02/24/16) Objective Last 24 Hour Vital Signs Date Time Temp Pulse Resp B/P Pulse Ox O2 Delivery O2 Flow Rate FiO2 02/27/16 12:00 76 20 Room Air 21 02/27/16 12:00 97.0 74 20 133/87 95 Room Air 02/27/16 08:00 97.9 75 20 145/85 95 Room Air 02/27/16 04:00 97.3 76 19 141/93 96 Room Air 02/27/16 00:00 98.1 81 20 124/74 96 Room Air 02/26/16 20:00 97.7 89 18 114/72 96 Room Air Intake and Output 02/26/16 02/27/16 19:00 07:00 Intake Total 337.5 ml 569.916 ml Output Total 925 ml Balance 337.5 ml -355.084 ml Intake Oral 200 ml 120 ml IV Total 137.5 ml 449.916 ml Output Urine Total 925 ml Laboratory Tests 02/26/16 22:00: Urine Eosinophils [Pending] 02/27/16 04:15: Urine Eosinophils None seen 02/27/16 15:30: Ammonia 40 Height (Feet): 5 Height (Inches): 3.00 Weight (Pounds): 142 General Appearance: no apparent distress Objective other PE not changed JUAN ALBERTO PUGH Feb 27, 2016 16:13
--- NOTE | 2016-02-27 17:12 | Infectious Diseases Prog Note ---
Assessment/Plan Problems: (1) Sepsis Assessment & Plan: blood culture, and urine culture are negative so far , continue zosyn and vancomycin empirically for now, until further results are obtained . (2) Urinary tract infection Assessment & Plan: continue zosyn, await urine culture (3) SUSAN (acute kidney injury) Assessment & Plan: improving , suspect dehydration and obstruction related, continue IVF, monitor UOP, avoid nephrotoxic meds (4) Altered level of consciousness Assessment & Plan: due to the above, continue wide spectrum antibiotics and hydration, neurology is following (5) Adenocarcinoma Assessment & Plan: of the lung, S/P surgical resection, radiation and chemotherapy at [facility], unclear whether in remission or not, follow up with [facility] Subjective Constitutional: Denies: anorexia, chills, drenching sweats, fatigue, fever, no symptoms, other HEENT: Denies: congestion, coryza, dysphagia, hearing change, no symptoms, other, visual change Respiratory: Denies: dry cough, no symptoms, other, productive cough, shortness of breath Breasts: Denies: discharge, no symptoms, other, swelling, tenderness Cardiovascular: Denies: chest pain, dyspnea on exertion, no symptoms, other, palpitations Gastrointestinal/Abdominal: Denies: bloating, blood in stool, constipation, diarrhea, nausea, no symptoms, other, vomiting Genitourinary: Denies: dysuria, frequency, hematuria, no symptoms, nocturia, other Neurologic: Denies: confusion, headache, no symptoms, numbness, other, weakness Psychiatric: Denies: anxiety, depression, no symptoms, other Skin: Denies: no symptoms, other, rash, ulcer Allergies: Coded Allergies: No Known Allergies (Unverified , 02/24/16) Subjective he was awake and alert, denied any fever or chills, no cough, or SOB, no diarrhea Objective Vital Signs Last 24 Hour Vital Signs Date Time Temp Pulse Resp B/P Pulse Ox O2 Delivery O2 Flow Rate FiO2 02/27/16 16:00 97.0 98 20 137/75 96 Room Air 02/27/16 12:00 76 20 Room Air 21 02/27/16 12:00 97.0 74 20 133/87 95 Room Air 02/27/16 08:00 97.9 75 20 145/85 95 Room Air 02/27/16 04:00 97.3 76 19 141/93 96 Room Air 02/27/16 00:00 98.1 81 20 124/74 96 Room Air 02/26/16 20:00 97.7 89 18 114/72 96 Room Air Height (Feet): 5 Height (Inches): 3.00 Weight (Pounds): 142 General Appearance: WD/WN, no acute distress HEENT: normocephalic, atraumatic, anicteric, mucous membranes moist Respiratory/Chest: chest wall non-tender, lungs clear, normal breath sounds, no respiratory distress, no accessory muscle use Cardiovascular: normal peripheral pulses, normal rate, regular rhythm, no gallop/murmur Abdomen: normal bowel sounds, soft, non tender, no organomegaly, non distended , no mass, no scars Extremities: no cyanosis, no clubbing Skin: no rash, no ulcers Microbiology Date/Time Source Procedure Growth Status 02/24/16 17:30 Blood Blood Culture - Preliminary NO GROWTH AFTER 48 HOURS Resulted 02/24/16 17:15 Blood Blood Culture - Preliminary NO GROWTH AFTER 48 HOURS Resulted 02/25/16 03:30 Nasal Nares Influenza Types A,B Antigen (IGNACIO) - Final Complete 02/25/16 00:05 Nasal Nares MRSA Culture - Final NO METHICILLIN RESISTANT STAPH AUREUS... Complete 02/24/16 18:20 Nasal Nares Influenza Types A,B Antigen (IGNACIO) - Final Complete 02/25/16 00:05 Rectum VRE Culture - Final NO VANCOMYCIN RESISTANT ENTEROCOCCUS ... Complete Laboratory Tests Test 02/26/16 22:00 02/27/16 04:15 02/27/16 15:30 Urine Eosinophils Pending None seen Ammonia 40 umol/L (16-60) Current Medications Medications (Trade) Dose Ordered Sig/Christina Route PRN Reason Start Time Stop Time Status Last Admin Dose Admin Acetaminophen (Tylenol) 650 mg Q4H PRN ORAL fever 02/24/16 22:45 03/25/16 22:44 Albuterol/ Ipratropium (DuoNeb 0.5-3(2.5)mg/3ml) 3 ml Q4H PRN HHN Shortness of Breath 02/27/16 10:45 03/03/16 23:59 Aspirin (ASA) 81 mg DAILY ORAL 02/25/16 09:00 03/26/16 08:59 02/27/16 08:35 Clonidine HCl (Catapres) 0.1 mg Q4H PRN ORAL For High Blood Pressure 02/24/16 22:45 03/25/16 22:44 Dextrose (Dextrose 50%) STAT PRN IV Hypoglycemia 02/24/16 22:45 03/25/16 22:44 Dextrose/Sodium Chloride (D5 0.45% NS) 1,000 ml @ 75 mls/hr [id number] IV 02/25/16 16:30 03/26/16 16:29 02/27/16 08:35 Finasteride (Proscar) 5 mg DAILY ORAL 02/25/16 09:00 03/26/16 08:59 02/27/16 08:36 Heparin Sodium (Porcine) (Heparin 5000 units/ml) 5,000 units EVERY 12 HOURS SUBQ 02/25/16 09:00 03/26/16 08:59 02/27/16 08:37 Levetiracetam (Keppra) 500 mg BID GT 02/25/16 09:00 03/26/16 08:59 02/27/16 08:35 Levothyroxine Sodium (Synthroid) 50 mcg ACBREAKFAST ORAL 02/25/16 06:30 03/26/16 06:29 02/27/16 05:58 Lorazepam (Ativan 2mg/ml 1ml) 0.5 mg Q4H PRN IV For Anxiety 02/24/16 22:45 03/02/16 22:44 Morphine Sulfate (Morphine Sulfate) 1 mg Q4H PRN IVP For Pain 7-10 02/24/16 22:45 03/02/16 22:44 Nitroglycerin (Ntg) 0.4 mg Q5M X 3 DOSES PRN SL Prn Chest Pain 02/24/16 22:45 03/25/16 22:44 Ondansetron HCl (Zofran) 4 mg Q6H PRN IVP Nausea & Vomiting 02/24/16 22:45 03/25/16 22:44 Pantoprazole 40 mg 40 mg DAILY ORAL 02/25/16 16:30 03/26/16 16:29 02/27/16 08:35 Piperacillin Sod/ Tazobactam Sod 3.375 gm/Dextrose 110 ml @ 27.5 mls/hr Q8HR IVPB 02/26/16 16:00 03/04/16 15:59 02/27/16 14:00 Polyethylene Glycol (Miralax) 17 gm HSPRN PRN ORAL Constipation 02/24/16 22:45 03/25/16 22:44 Promethazine HCl/ Codeine (Phenergan with Codeine) 5 ml Q4H PRN ORAL For Cough 02/24/16 22:45 03/25/16 22:44 Temazepam (Restoril) 15 mg HSPRN PRN ORAL Insomnia 02/24/16 22:45 03/02/16 22:44 Vancomycin HCl 1 ea 1 ea DAILY PRN MISC Per rx protocol 02/24/16 23:00 03/25/16 22:59 Vancomycin HCl/ Dextrose (Vancomycin/D5W) 275 ml @ 183.708 mls/hr Q24H IVPB 02/26/16 20:00 03/02/16 19:59 02/26/16 20:00 Nabor Gonzales M.D. Feb 27, 2016 17:12
[2016-02-27 20:00] VITALS: BP 143/82
[2016-02-27] MEDS: Vancomycin 750mg/D5W 275ml IVPB SCH ×2 (22:47)
[2016-02-28 00:57] VITALS: BP 142/93
[2016-02-28] MEDS: D5W IVPB SCH ×2 (02:15→06:00)
[2016-02-28] MEDS: ZOSYN IVPB SCH ×2 (02:15→06:00)
[2016-02-28 04:00] VITALS: BP 123/81
[2016-02-28 05:54] LABS: BASOPHILS % (AUTO) 1.5 % (0.0-2.0); LYMPHOCYTES % (AUTO) 11.7 % (20.0-45.0); MEAN CORPUSCULAR HEMOGLOBIN 28.2 PG (27.0-31.0); MEAN CORPUSCULAR VOLUME 85 FL (80-99); MEAN PLATELET VOLUME 6.5 FL (6.5-10.1); MONOCYTES % (AUTO) 8.4 % (1.0-10.0); NEUTROPHILS % (AUTO) 74.5 % (45.0-75.0); PLATELET COUNT 228 K/UL (150-450); RED BLOOD COUNT 4.62 M/UL (4.70-6.10); RED CELL DISTRIBUTION WIDTH 13.3 % (11.6-14.8); WHITE BLOOD COUNT 5.5 K/UL (4.8-10.8)
[2016-02-28 06:24] LABS: ALANINE AMINOTRANSFERASE 14 U/L (3-41); ALBUMIN/GLOBULIN RATIO 1.1 (1.0-2.7); ANION GAP 14 (5-15); ASPARTATE AMINO TRANSFERASE 11 U/L (5-40); CALCIUM 9.2 mg/dL (8.6-10.2); CARBON DIOXIDE 25 mEQ/L (20-30); CHLORIDE 104 mEQ/L (98-107); CREATININE 1.3 mg/dL (0.7-1.2); HEMOLYSIS 4; MAGNESIUM 1.8 mg/dL (1.7-2.5); PHOSPHORUS 3.6 mg/dL (2.5-4.8); POTASSIUM 3.5 mEQ/L (3.4-4.9); SODIUM 143 mEQ/L (135-145); TOTAL PROTEIN 6.1 g/dL (6.6-8.7); URIC ACID 3.6 mg/dL (3.0-7.5)
[2016-02-28 08:00] VITALS: BP 138/89
[2016-02-28 08:09] LABS: VITAMIN D 25-OH TOTAL 31 ng/mL (.)
[2016-02-28] MEDS: levETIRAcetam 500mg/5ml Liquid GT SCH ×2 (08:32→18:12)
[2016-02-28] MEDS: Aspirin Baby 81mg ORAL SCH (08:32)
[2016-02-28] MEDS: Heparin 5000 units/ml inj SUBQ SCH ×2 (08:35→21:55)
--- NOTE | 2016-02-28 09:47 | Consultation ---
SUBJECTIVE: No events overnight. The patient is still somewhat confused. OBJECTIVE: Afebrile. Vital signs are stable. Physical exam of abdomen is soft, flat, nontender, and nondistended. Genitourinary, Madison catheter in place. Clear yellow urine output. No changes. Extremities, normal perfused. No cyanosis, clubbing, or edema. LABORATORY DATA: White blood cell count down to 6.7 from 14.7 on admission, hematocrit 39.8, and platelets 214,000. Sodium 144, potassium 3.7, chloride 104, bicarbonate 25, BUN 54, creatinine of 1.7 down from 2.4 on admission. Glucose is 107. LFTs are within normal limits. Blood cultures, no growth, MRSA negative, and VRE negative. ASSESSMENT AND PLAN: 1. The patient is an 81-year-old gentleman with lung cancer, shortness of breath and altered mental status. 2. History of benign prostatic hypertrophy and difficulty urinating. 3. Madison catheter draining well. 4. Continue Proscar and antibiotic coverage with vancomycin/Zosyn as warranted. 5. Trial of void in 1 to 2 days, if patient's mental status improved. Daniele Galo M.D. DR: GLORIA JOB#: [id number] CC:
--- NOTE | 2016-02-28 11:17 | General Progress Note ---
Assessment/Plan Problem List: (1) Urinary tract infection ICD Codes: N39.0 - Urinary tract infection, site not specified SNOMED: 16446637 (2) Sepsis ICD Codes: A41.9 - Sepsis, unspecified organism SNOMED: 79274429 (3) Altered level of consciousness ICD Codes: R40.4 - Transient alteration of awareness SNOMED: 3903490 (4) Adenocarcinoma ICD Codes: C80.1 - Malignant (primary) neoplasm, unspecified SNOMED: 89276604, 596445484, 900351604 (5) Acute encephalopathy ICD Codes: G93.40 - Encephalopathy, unspecified SNOMED: 4018617 Status: progressing Assessment/Plan cognitive decline r/o sepsis vitals stable azotemia is improving uti Subjective ROS Limited/Unobtainable: Yes Constitutional: Reports: no symptoms Allergies: Coded Allergies: No Known Allergies (Unverified , 02/24/16) Objective Last 24 Hour Vital Signs Date Time Temp Pulse Resp B/P Pulse Ox O2 Delivery O2 Flow Rate FiO2 02/28/16 08:00 96.9 80 19 138/89 96 Room Air 02/28/16 04:00 97.5 70 19 123/81 96 Room Air 02/28/16 00:57 97.9 75 21 142/93 94 Room Air 02/27/16 20:00 97.7 78 18 143/82 92 Room Air 02/27/16 19:20 60 18 Room Air 02/27/16 16:00 97.0 98 20 137/75 96 Room Air 02/27/16 12:00 76 20 Room Air 21 02/27/16 12:00 97.0 74 20 133/87 95 Room Air Intake and Output 02/27/16 02/28/16 19:00 07:00 Intake Total 425.0 ml 75 ml Output Total 575 ml 600 ml Balance -150.0 ml -525 ml Intake Oral 240 ml IV Total 185.0 ml 75 ml Output Urine Total 575 ml 600 ml # Bowel Movements 2 1 Laboratory Tests 02/27/16 15:30: Ammonia 40 02/28/16 05:30: White Blood Count 5.5, Red Blood Count 4.62L, Hemoglobin 13.0L, Hematocrit 39.4L , Mean Corpuscular Volume 85, Mean Corpuscular Hemoglobin 28.2, Mean Corpuscular Hemoglobin Concent 33.0, Red Cell Distribution Width 13.3, Platelet Count 228, Mean Platelet Volume 6.5, Neutrophils (%) (Auto) 74.5, Lymphocytes (% ) (Auto) 11.7L, Monocytes (%) (Auto) 8.4, Eosinophils (%) (Auto) 4.0H, Basophils (%) (Auto) 1.5, Sodium Level 143, Potassium Level 3.5, Chloride Level 104, Carbon Dioxide Level 25, Anion Gap 14, Blood Urea Nitrogen 33H, Creatinine 1.3H, Estimat Glomerular Filtration Rate , Glucose Level 114H, Uric Acid 3.6, Calcium Level 9.2, Phosphorus Level 3.6, Magnesium Level 1.8, Total Bilirubin 0.7, Aspartate Amino Transf (AST/SGOT) 11, Alanine Aminotransferase (ALT/SGPT) 14, Alkaline Phosphatase 52, Total Protein 6.1L, Albumin 3.3L, Globulin 2.8, Albumin/Globulin Ratio 1.1 02/28/16 07:00: Urine Eosinophils None seen Height (Feet): 5 Height (Inches): 3.00 Weight (Pounds): 142 EENT: PERRL/EOMI Neck: supple Cardiovascular: normal rate Respiratory/Chest: lungs clear Abdomen: soft Nelson Rodriguez MD Feb 28, 2016 11:17
--- NOTE | 2016-02-28 11:39 | Pulmonology Progress Note ---
Assessment/Plan Assessment/Plan ASSESSMENT sepsis UTI acute encephalopathy 2 to infectious process on chronic OBS ARF on [facility]- improved lung adenocarcinoma with hx of lung surgery dysphagia high aspiration risk BPH urinary retention hypothyroidism OBS seizure disorder PLAN OF CARE MS floor O2 HHN prn antitussive prn fup with CXR CT head no acute intracranial pathology abx, ID follows blood cx and influenza screen negative, urine cx not send? IVF, renal parameters improving, creat trending down nephro follows renal impairment likely 2 to dehydration monitor renal parameters. lytes, improving avoid nephrotoxic urology follows, recommended voiding trial if mental status better, for now continue Proscar, Madison draining well seizure precautions, continue Keppra neuro follows EEG abnormal c/w moderate to severe encephalopathy swallow eval and VSSE noted, evidence of dysphagia, and high aspiration risk diet as per ST recommendations PT/OT /ST DVT, GI prophylaxis case discussed and evaluated by supervising physician Subjective Allergies: Coded Allergies: No Known Allergies (Unverified , 02/24/16) Subjective afebrile, no leukocytosis creat down to 1.3 answers simple questions Objective Last 24 Hour Vital Signs Date Time Temp Pulse Resp B/P Pulse Ox O2 Delivery O2 Flow Rate FiO2 02/28/16 08:00 96.9 80 19 138/89 96 Room Air 02/28/16 04:00 97.5 70 19 123/81 96 Room Air 02/28/16 00:57 97.9 75 21 142/93 94 Room Air 02/27/16 20:00 97.7 78 18 143/82 92 Room Air 02/27/16 19:20 60 18 Room Air 02/27/16 16:00 97.0 98 20 137/75 96 Room Air 02/27/16 12:00 76 20 Room Air 21 02/27/16 12:00 97.0 74 20 133/87 95 Room Air Intake and Output 02/27/16 02/28/16 19:00 07:00 Intake Total 425.0 ml 75 ml Output Total 575 ml 600 ml Balance -150.0 ml -525 ml Intake Oral 240 ml IV Total 185.0 ml 75 ml Output Urine Total 575 ml 600 ml # Bowel Movements 2 1 Objective General Appearance: no acute distress, weak, confused, but responsive, answers simple questions HEENT: normocephalic, atraumatic, anicteric Respiratory/Chest: lungs clear, no respiratory distress, no accessory muscle use Cardiovascular: normal peripheral pulses, normal rate, regular rhythm, no JVD Abdomen: normal bowel sounds, soft, non tender Genitourinary: normal external genitalia, other - Madison Neurologic/Psychiatric: abnormal gait, alert - confused Musculoskeletal: atrophy - BLE Laboratory Tests 02/27/16 15:30: Ammonia 40 02/28/16 05:30: White Blood Count 5.5, Red Blood Count 4.62L, Hemoglobin 13.0L, Hematocrit 39.4L , Mean Corpuscular Volume 85, Mean Corpuscular Hemoglobin 28.2, Mean Corpuscular Hemoglobin Concent 33.0, Red Cell Distribution Width 13.3, Platelet Count 228, Mean Platelet Volume 6.5, Neutrophils (%) (Auto) 74.5, Lymphocytes (% ) (Auto) 11.7L, Monocytes (%) (Auto) 8.4, Eosinophils (%) (Auto) 4.0H, Basophils (%) (Auto) 1.5, Sodium Level 143, Potassium Level 3.5, Chloride Level 104, Carbon Dioxide Level 25, Anion Gap 14, Blood Urea Nitrogen 33H, Creatinine 1.3H, Estimat Glomerular Filtration Rate , Glucose Level 114H, Uric Acid 3.6, Calcium Level 9.2, Phosphorus Level 3.6, Magnesium Level 1.8, Total Bilirubin 0.7, Aspartate Amino Transf (AST/SGOT) 11, Alanine Aminotransferase (ALT/SGPT) 14, Alkaline Phosphatase 52, Total Protein 6.1L, Albumin 3.3L, Globulin 2.8, Albumin/Globulin Ratio 1.1 02/28/16 07:00: Urine Eosinophils None seen Current Medications Medications (Trade) Dose Ordered Sig/Christina Route PRN Reason Start Time Stop Time Status Last Admin Dose Admin Acetaminophen (Tylenol) 650 mg Q4H PRN ORAL fever 02/24/16 22:45 03/25/16 22:44 Albuterol/ Ipratropium (DuoNeb 0.5-3(2.5)mg/3ml) 3 ml Q4H PRN HHN Shortness of Breath 02/27/16 10:45 03/03/16 23:59 Aspirin (ASA) 81 mg DAILY ORAL 02/25/16 09:00 03/26/16 08:59 02/28/16 08:32 Clonidine HCl (Catapres) 0.1 mg Q4H PRN ORAL For High Blood Pressure 02/24/16 22:45 03/25/16 22:44 Dextrose (Dextrose 50%) STAT PRN IV Hypoglycemia 02/24/16 22:45 03/25/16 22:44 Dextrose/Sodium Chloride (D5 0.45% NS) 1,000 ml @ 75 mls/hr [id number] IV 02/25/16 16:30 03/26/16 16:29 02/27/16 08:35 Finasteride (Proscar) 5 mg DAILY ORAL 02/25/16 09:00 03/26/16 08:59 02/28/16 08:33 Heparin Sodium (Porcine) (Heparin 5000 units/ml) 5,000 units EVERY 12 HOURS SUBQ 02/25/16 09:00 03/26/16 08:59 02/28/16 08:35 Levetiracetam (Keppra) 500 mg BID GT 02/25/16 09:00 03/26/16 08:59 02/28/16 08:32 Levothyroxine Sodium (Synthroid) 50 mcg ACBREAKFAST ORAL 02/25/16 06:30 03/26/16 06:29 02/28/16 06:44 Lorazepam (Ativan 2mg/ml 1ml) 0.5 mg Q4H PRN IV For Anxiety 02/24/16 22:45 03/02/16 22:44 Morphine Sulfate (Morphine Sulfate) 1 mg Q4H PRN IVP For Pain 7-10 02/24/16 22:45 03/02/16 22:44 Nitroglycerin (Ntg) 0.4 mg Q5M X 3 DOSES PRN SL Prn Chest Pain 02/24/16 22:45 03/25/16 22:44 Ondansetron HCl (Zofran) 4 mg Q6H PRN IVP Nausea & Vomiting 02/24/16 22:45 03/25/16 22:44 Pantoprazole 40 mg 40 mg DAILY ORAL 02/25/16 16:30 03/26/16 16:29 02/28/16 08:32 Piperacillin Sod/ Tazobactam Sod 3.375 gm/Dextrose 110 ml @ 27.5 mls/hr Q8HR IVPB 02/26/16 16:00 03/04/16 15:59 02/28/16 06:00 Polyethylene Glycol (Miralax) 17 gm HSPRN PRN ORAL Constipation 02/24/16 22:45 03/25/16 22:44 Promethazine HCl/ Codeine (Phenergan with Codeine) 5 ml Q4H PRN ORAL For Cough 02/24/16 22:45 03/25/16 22:44 Temazepam (Restoril) 15 mg HSPRN PRN ORAL Insomnia 02/24/16 22:45 03/02/16 22:44 Vancomycin HCl 1 ea 1 ea DAILY PRN MISC Per rx protocol 02/24/16 23:00 03/25/16 22:59 Vancomycin HCl/ Dextrose (Vancomycin/D5W) 275 ml @ 183.708 mls/hr Q24H IVPB 02/26/16 20:00 03/02/16 19:59 02/27/16 22:47 Tian (Gwendolyn)Latosha NP Feb 28, 2016 11:39
[2016-02-28 12:00] VITALS: BP 131/82
--- NOTE | 2016-02-28 12:06 | Neurology Progress Note ---
Interim History Interim History Interim History Mr. Mg feels about the same as yesterday. He is still very subdued. 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 He continues to be generally weak. He has been seizure-free. Review of Systems Neuro Review of Systems Benign. Objective Physical Exam Last Vital Signs Date Time Temp Pulse Resp B/P Pulse Ox O2 Delivery O2 Flow Rate FiO2 02/28/16 08:00 96.9 80 19 138/89 96 Room Air 02/27/16 12:00 21 02/24/16 22:43 10.0 Laboratory Tests Test 02/27/16 15:30 02/28/16 05:30 02/28/16 07:00 Ammonia 40 umol/L (16-60) White Blood Count 5.5 K/UL (4.8-10.8) Red Blood Count 4.62 M/UL (4.70-6.10) L Hemoglobin 13.0 G/DL (14.2-18.0) L Hematocrit 39.4 % (42.0-52.0) L Mean Corpuscular Volume 85 FL (80-99) Mean Corpuscular Hemoglobin 28.2 PG (27.0-31.0) Mean Corpuscular Hemoglobin Concent 33.0 G/DL (32.0-36.0) Red Cell Distribution Width 13.3 % (11.6-14.8) Platelet Count 228 K/UL (150-450) Mean Platelet Volume 6.5 FL (6.5-10.1) Neutrophils (%) (Auto) 74.5 % (45.0-75.0) Lymphocytes (%) (Auto) 11.7 % (20.0-45.0) L Monocytes (%) (Auto) 8.4 % (1.0-10.0) Eosinophils (%) (Auto) 4.0 % (0.0-3.0) H Basophils (%) (Auto) 1.5 % (0.0-2.0) Sodium Level 143 mEQ/L (135-145) Potassium Level 3.5 mEQ/L (3.4-4.9) Chloride Level 104 mEQ/L (98-107) Carbon Dioxide Level 25 mEQ/L (20-30) Anion Gap 14 (5-15) Blood Urea Nitrogen 33 mg/dL (7-23) H Creatinine 1.3 mg/dL (0.7-1.2) H Estimat Glomerular Filtration Rate mL/min (>60) Glucose Level 114 mg/dL (74-106) H Uric Acid 3.6 mg/dL (3.0-7.5) Calcium Level 9.2 mg/dL (8.6-10.2) Phosphorus Level 3.6 mg/dL (2.5-4.8) Magnesium Level 1.8 mg/dL (1.7-2.5) Total Bilirubin 0.7 mg/dL (0.0-1.2) Aspartate Amino Transf (AST/SGOT) 11 U/L (5-40) Alanine Aminotransferase (ALT/SGPT) 14 U/L (3-41) Alkaline Phosphatase 52 U/L (40-129) Total Protein 6.1 g/dL (6.6-8.7) L Albumin 3.3 g/dL (3.5-5.2) L Globulin 2.8 g/dL Albumin/Globulin Ratio 1.1 (1.0-2.7) Urine Eosinophils None seen Neurologic Exam Objective PHYSICAL EXAMINATION: GENERAL: He is a well-developed, well-nourished, pleasant gentleman, lying in bed, in no acute distress. HEAD: Normocephalic and atraumatic. EENT: Examination benign. NECK: No neck rigidity was observed. NEUROLOGIC EXAMINATION: MENTAL STATUS EXAMINATION: He was awake, but not completely alert. He was oriented to self and hospital. He did not know the name of the hospital. He had no idea of what the date, month, or year was. He was able to recall 3/3 words immediately, but could not remember any of them in 1 minute and 3 minutes. He was unable to tell me who the present president was or who prior presidents were. His mathematical skills were impaired. His visuospatial function was also impaired. SPEECH: He had a mild dysarthria. LANGUAGE: He had anomia for low-frequency words. CRANIAL NERVE EXAMINATION: II: The visual gates were intact to confrontation testing. III, IV & : External ocular movements are full and the pupils 3 mm in diameter, equal, round, regular, and reactive to light. V: He had normal facial sensations and the temporales, masseters, and pterygoids functioned normally. VII: He had left VII central facial paresis. VIII: He was able to hear and had no nystagmus. IX: The palate moved symmetrically on phonation. X: He had no hoarseness of voice. XI: The sternocleidomastoids and trapezii functioned normally. XII: The tongue was in the midline without any fasciculations or atrophy. MOTOR SYSTEM: The tone was normal in all four extremities. Examination of muscle mass revealed no focal wasting. He did, however, have generalized muscle wasting. Examination of power revealed approximately grade 5/5 power except for grade 4/ 5 power in the left finger extensors and iliopsoas and grade 5-/5 power in the right iliopsoas. His effort was poor. SENSORY EXAMINATION: He had intact sensations to pinprick and light touch. He was unable to cooperate for the sensory modalities. REFLEXES: Trace+ on the right and 1+ on the left at the biceps, triceps, brachioradialis, and knees, and 0 at both ankles. The plantar responses were flexor bilaterally. COORDINATION: He performed well on [id number] testing. He was unable to perform [id number] testing. STANCE & GAIT: Could not be tested. Impression/Recommendations Diagnostic Impression 1. Mr. Kirby Mg is an 82-year-old, right-handed, gentleman who does have a prior history of adenocarcinoma of the lung which is in remission now, cognitive dysfunction that started in January 2016 and rapidly progressed , and a single generalized tonic-clonic seizure in February 2016. The patient was in a rehabilitation facility where he was noted to have decline in cognitive function and was also having some abnormal jerking movements of one of his upper extremities; his daughter thinks the right. Since he has been at [facility], his condition seems to have improved. 2. He feels about the same as yesterday. He continues to exhibit significant cognitive and motor dysfunction. He is also severely psychomotor retarded. 3. On neurological examination, at this time, he demonstrates problems with orientation, recent and remote memory, visuospatial function, higher cognitive function and language. He also has left VII central facial paresis, quadriparesis involving the left side significantly more than the right and brisker reflexes on the left side. 4. The CT scan of the brain performed at [facility] reveals significant atrophy and deep white matter disease and in addition an area of calcification in the right parietal area. 5. Laboratory data obtained thus far revealed that he is mildly anemic with a hemoglobin of 13.3. When he came in, his WBC count was elevated to 14.7 with a left-sided shift. His electrolyte panel revealed his BUN elevated to 63 with a creatinine of 3.8, glucose of 154, and a proBNP of 872. His TSH is normal at 1.84. His urinalysis reveals that he does have a urinary tract infection with 1 + leukocyte esterase, 5 to 10 red blood cells, and 5 to 10 white blood cells per high-power field. His ammonia was normal. 6. The EEG revealed a moderately severe toxic/metabolic encephalopathy 7. The patient's history and neurological examination are most compatible with a significant encephalopathic process due to right greater than left brain dysfunction, electrolyte imbalances, urinary tract infection, and possibly a postictal state. 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 Recommendations 1. Continue present management. 2. Continue treating the patient's urinary tract infection aggressively. 3. Continue treating the patient's renal dysfunction as per Dr. Bowman. 4. Continue Keppra 500 mg q.12 h 5. Mobilize with PT/OT. Ray Wong M.D., M.S.P.H. RAY WONG Feb 28, 2016 12:06
[2016-02-28] MEDS: D5 1/2NS 1,000 ML IV SCH (13:21)
--- NOTE | 2016-02-28 14:26 | General Progress Note ---
Assessment/Plan Status: stable Assessment/Plan status: ---Acute renal failure due to ? Obstruction and Dehydration- Mainly prerenal picture- resolving Other; - Acute encephalopathy - Urinary tract infection / Sepsis - Altered level of consciousness / Encephalopathy - Adenocarcinoma Plan: Hydrate- Avoid Nephrotoxics- Antibiotics- Urine studies- ? DC planning Subjective ROS Limited/Unobtainable: No Constitutional: Reports: weakness Allergies: Coded Allergies: No Known Allergies (Unverified , 02/24/16) Objective Last 24 Hour Vital Signs Date Time Temp Pulse Resp B/P Pulse Ox O2 Delivery O2 Flow Rate FiO2 02/28/16 12:00 96.6 84 20 131/82 97 Room Air 02/28/16 08:00 96.9 80 19 138/89 96 Room Air 02/28/16 04:00 97.5 70 19 123/81 96 Room Air 02/28/16 00:57 97.9 75 21 142/93 94 Room Air 02/27/16 20:00 97.7 78 18 143/82 92 Room Air 02/27/16 19:20 60 18 Room Air 02/27/16 16:00 97.0 98 20 137/75 96 Room Air Intake and Output 02/27/16 02/28/16 19:00 07:00 Intake Total 425.0 ml 75 ml Output Total 575 ml 600 ml Balance -150.0 ml -525 ml Intake Oral 240 ml IV Total 185.0 ml 75 ml Output Urine Total 575 ml 600 ml # Bowel Movements 2 1 Laboratory Tests 02/27/16 15:30: Ammonia 40 02/28/16 05:30: White Blood Count 5.5, Red Blood Count 4.62L, Hemoglobin 13.0L, Hematocrit 39.4L , Mean Corpuscular Volume 85, Mean Corpuscular Hemoglobin 28.2, Mean Corpuscular Hemoglobin Concent 33.0, Red Cell Distribution Width 13.3, Platelet Count 228, Mean Platelet Volume 6.5, Neutrophils (%) (Auto) 74.5, Lymphocytes (% ) (Auto) 11.7L, Monocytes (%) (Auto) 8.4, Eosinophils (%) (Auto) 4.0H, Basophils (%) (Auto) 1.5, Sodium Level 143, Potassium Level 3.5, Chloride Level 104, Carbon Dioxide Level 25, Anion Gap 14, Blood Urea Nitrogen 33H, Creatinine 1.3H, Estimat Glomerular Filtration Rate , Glucose Level 114H, Uric Acid 3.6, Calcium Level 9.2, Phosphorus Level 3.6, Magnesium Level 1.8, Total Bilirubin 0.7, Aspartate Amino Transf (AST/SGOT) 11, Alanine Aminotransferase (ALT/SGPT) 14, Alkaline Phosphatase 52, Total Protein 6.1L, Albumin 3.3L, Globulin 2.8, Albumin/Globulin Ratio 1.1 02/28/16 07:00: Urine Eosinophils None seen Height (Feet): 5 Height (Inches): 3.00 Weight (Pounds): 142 General Appearance: no apparent distress Objective other PE not changed JUAN ALBERTO PUGH Feb 28, 2016 14:26
--- NOTE | 2016-02-28 14:35 | Infectious Diseases Prog Note ---
Assessment/Plan Problems: (1) Sepsis Assessment & Plan: blood culture, and urine culture are negative so far , will stop zosyn and vancomycin , and start him on ceftriaxon for UTI (2) Urinary tract infection Assessment & Plan: will switch zosyn to ceftriaxon , no urine culture. (3) SUSAN (acute kidney injury) Assessment & Plan: improving , suspect dehydration and obstruction related, continue IVF, monitor UOP, avoid nephrotoxic meds (4) Altered level of consciousness Assessment & Plan: due to the above, continue wide spectrum antibiotics and hydration, neurology is following (5) Adenocarcinoma Assessment & Plan: of the lung, S/P surgical resection, radiation and chemotherapy at [facility], unclear whether in remission or not, follow up with [facility] Subjective Constitutional: Denies: anorexia, chills, drenching sweats, fatigue, fever, no symptoms, other HEENT: Denies: congestion, coryza, dysphagia, hearing change, no symptoms, other, visual change Respiratory: Denies: dry cough, no symptoms, other, productive cough, shortness of breath Breasts: Denies: discharge, no symptoms, other, swelling, tenderness Cardiovascular: Denies: chest pain, dyspnea on exertion, no symptoms, other, palpitations Gastrointestinal/Abdominal: Denies: bloating, blood in stool, constipation, diarrhea, nausea, no symptoms, other, vomiting Genitourinary: Denies: dysuria, frequency, hematuria, no symptoms, nocturia, other Neurologic: Denies: confusion, headache, no symptoms, numbness, other, weakness Psychiatric: Denies: anxiety, depression, no symptoms, other Skin: Denies: no symptoms, other, rash, ulcer Endocrine: Denies: feels cold, feels warm, no symptoms, other Allergies: Coded Allergies: No Known Allergies (Unverified , 02/24/16) Subjective he was awake and alert, denied any fever or chills, no cough, or SOB, no diarrhea Objective Vital Signs Last 24 Hour Vital Signs Date Time Temp Pulse Resp B/P Pulse Ox O2 Delivery O2 Flow Rate FiO2 02/28/16 12:00 96.6 84 20 131/82 97 Room Air 02/28/16 08:00 96.9 80 19 138/89 96 Room Air 02/28/16 04:00 97.5 70 19 123/81 96 Room Air 02/28/16 00:57 97.9 75 21 142/93 94 Room Air 02/27/16 20:00 97.7 78 18 143/82 92 Room Air 02/27/16 19:20 60 18 Room Air 02/27/16 16:00 97.0 98 20 137/75 96 Room Air Height (Feet): 5 Height (Inches): 3.00 Weight (Pounds): 142 General Appearance: WD/WN, no acute distress HEENT: normocephalic, atraumatic, anicteric, mucous membranes moist Respiratory/Chest: chest wall non-tender, lungs clear, normal breath sounds, no respiratory distress, no accessory muscle use Cardiovascular: normal peripheral pulses, normal rate, regular rhythm, no gallop/murmur Abdomen: normal bowel sounds, soft, non tender, no organomegaly, non distended , no mass, no scars Extremities: no cyanosis, no clubbing Skin: no rash, no lesions, no ulcers Laboratory Tests Test 02/27/16 15:30 02/28/16 05:30 02/28/16 07:00 Ammonia 40 umol/L (16-60) White Blood Count 5.5 K/UL (4.8-10.8) Red Blood Count 4.62 M/UL (4.70-6.10) L Hemoglobin 13.0 G/DL (14.2-18.0) L Hematocrit 39.4 % (42.0-52.0) L Mean Corpuscular Volume 85 FL (80-99) Mean Corpuscular Hemoglobin 28.2 PG (27.0-31.0) Mean Corpuscular Hemoglobin Concent 33.0 G/DL (32.0-36.0) Red Cell Distribution Width 13.3 % (11.6-14.8) Platelet Count 228 K/UL (150-450) Mean Platelet Volume 6.5 FL (6.5-10.1) Neutrophils (%) (Auto) 74.5 % (45.0-75.0) Lymphocytes (%) (Auto) 11.7 % (20.0-45.0) L Monocytes (%) (Auto) 8.4 % (1.0-10.0) Eosinophils (%) (Auto) 4.0 % (0.0-3.0) H Basophils (%) (Auto) 1.5 % (0.0-2.0) Sodium Level 143 mEQ/L (135-145) Potassium Level 3.5 mEQ/L (3.4-4.9) Chloride Level 104 mEQ/L (98-107) Carbon Dioxide Level 25 mEQ/L (20-30) Anion Gap 14 (5-15) Blood Urea Nitrogen 33 mg/dL (7-23) H Creatinine 1.3 mg/dL (0.7-1.2) H Estimat Glomerular Filtration Rate mL/min (>60) Glucose Level 114 mg/dL (74-106) H Uric Acid 3.6 mg/dL (3.0-7.5) Calcium Level 9.2 mg/dL (8.6-10.2) Phosphorus Level 3.6 mg/dL (2.5-4.8) Magnesium Level 1.8 mg/dL (1.7-2.5) Total Bilirubin 0.7 mg/dL (0.0-1.2) Aspartate Amino Transf (AST/SGOT) 11 U/L (5-40) Alanine Aminotransferase (ALT/SGPT) 14 U/L (3-41) Alkaline Phosphatase 52 U/L (40-129) Total Protein 6.1 g/dL (6.6-8.7) L Albumin 3.3 g/dL (3.5-5.2) L Globulin 2.8 g/dL Albumin/Globulin Ratio 1.1 (1.0-2.7) Urine Eosinophils None seen Current Medications Medications (Trade) Dose Ordered Sig/Christina Route PRN Reason Start Time Stop Time Status Last Admin Dose Admin Acetaminophen (Tylenol) 650 mg Q4H PRN ORAL fever 02/24/16 22:45 03/25/16 22:44 Albuterol/ Ipratropium (DuoNeb 0.5-3(2.5)mg/3ml) 3 ml Q4H PRN HHN Shortness of Breath 02/27/16 10:45 03/03/16 23:59 Aspirin (ASA) 81 mg DAILY ORAL 02/25/16 09:00 03/26/16 08:59 02/28/16 08:32 Clonidine HCl (Catapres) 0.1 mg Q4H PRN ORAL For High Blood Pressure 02/24/16 22:45 03/25/16 22:44 Dextrose (Dextrose 50%) STAT PRN IV Hypoglycemia 02/24/16 22:45 03/25/16 22:44 Dextrose/Sodium Chloride (D5 0.45% NS) 1,000 ml @ 75 mls/hr [id number] IV 02/25/16 16:30 03/26/16 16:29 02/28/16 13:21 Finasteride (Proscar) 5 mg DAILY ORAL 02/25/16 09:00 03/26/16 08:59 02/28/16 08:33 Heparin Sodium (Porcine) (Heparin 5000 units/ml) 5,000 units EVERY 12 HOURS SUBQ 02/25/16 09:00 03/26/16 08:59 02/28/16 08:35 Levetiracetam (Keppra) 500 mg BID GT 02/25/16 09:00 03/26/16 08:59 02/28/16 08:32 Levothyroxine Sodium (Synthroid) 50 mcg ACBREAKFAST ORAL 02/25/16 06:30 03/26/16 06:29 02/28/16 06:44 Lorazepam (Ativan 2mg/ml 1ml) 0.5 mg Q4H PRN IV For Anxiety 02/24/16 22:45 03/02/16 22:44 Morphine Sulfate (Morphine Sulfate) 1 mg Q4H PRN IVP For Pain 7-10 02/24/16 22:45 03/02/16 22:44 Nitroglycerin (Ntg) 0.4 mg Q5M X 3 DOSES PRN SL Prn Chest Pain 02/24/16 22:45 03/25/16 22:44 Ondansetron HCl (Zofran) 4 mg Q6H PRN IVP Nausea & Vomiting 02/24/16 22:45 03/25/16 22:44 Pantoprazole 40 mg 40 mg DAILY ORAL 02/25/16 16:30 03/26/16 16:29 02/28/16 08:32 Piperacillin Sod/ Tazobactam Sod 3.375 gm/Dextrose 110 ml @ 27.5 mls/hr Q8HR IVPB 02/26/16 16:00 03/04/16 15:59 02/28/16 06:00 Polyethylene Glycol (Miralax) 17 gm HSPRN PRN ORAL Constipation 02/24/16 22:45 03/25/16 22:44 Promethazine HCl/ Codeine (Phenergan with Codeine) 5 ml Q4H PRN ORAL For Cough 02/24/16 22:45 03/25/16 22:44 Temazepam (Restoril) 15 mg HSPRN PRN ORAL Insomnia 02/24/16 22:45 03/02/16 22:44 Vancomycin HCl 1 ea 1 ea DAILY PRN MISC Per rx protocol 02/24/16 23:00 03/25/16 22:59 Vancomycin HCl/ Dextrose (Vancomycin/D5W) 275 ml @ 183.708 mls/hr Q24H IVPB 02/26/16 20:00 03/02/16 19:59 02/27/16 22:47 Nabor Gonzales M.D. Feb 28, 2016 14:35
[2016-02-28 15:56] VITALS: BP 118/90
[2016-02-28] MEDS ORDERED: D5 1/2NS 1000ml IV ONE (16:17)
[2016-02-28] MEDS ORDERED: NS 275ml ONE (16:17)
[2016-02-28] MEDS ORDERED: Tubing IV Secondary IV ONE (16:17)
[2016-02-28] MEDS ORDERED: D5W 275ml ONE (16:17)
[2016-02-28] MEDS: cefTRIAXone 1 GM in D5W 55 ML IVPB SCH (17:08)
--- NOTE | 2016-02-28 17:09 | Diagnostic Imaging Report ---
APPROVED REPORT CPT Code: 86836 Vascular Symptoms Dizziness and Vertigo CAROTID (BILATERAL) - Imaging reveals no significant plaque within the right and left extracranial carotid arteries. The Doppler spectral flow analysis is within normal limits throughout the extracranial carotid arteries bilaterally. VERTEBRAL- The vertebral arteries are within normal limits.
--- NOTE | 2016-02-28 17:09 | Diagnostic Imaging Report ---
APPROVED REPORT CPT Code: 74084 Present Symptoms Comments: R/O DVT BILATERAL: Imaging reveals a patent deep venous system bilaterally. There is no evidence of thrombus within the femoral, popliteal or tibial segments. The greater saphenous veins are also within normal limits. Doppler indicates normal spontaneous flow within these segments.
[2016-02-28 20:12] VITALS: BP 122/79
[2016-02-29] VITALS: BP 149/81
[2016-02-29] MEDS: D5 1/2NS 1,000 ML IV SCH ×3 (00:30→22:13)
[2016-02-29 04:00] VITALS: BP 135/96
[2016-02-29 06:33] LABS: BASOPHILS % (AUTO) 1.4 % (0.0-2.0); LYMPHOCYTES % (AUTO) 14.2 % (20.0-45.0); MEAN CORPUSCULAR HEMOGLOBIN 28.3 PG (27.0-31.0); MEAN CORPUSCULAR VOLUME 88 FL (80-99); MEAN PLATELET VOLUME 6.5 FL (6.5-10.1); MONOCYTES % (AUTO) 7.4 % (1.0-10.0); NEUTROPHILS % (AUTO) 72.1 % (45.0-75.0); PLATELET COUNT 213 K/UL (150-450); RED BLOOD COUNT 4.43 M/UL (4.70-6.10); RED CELL DISTRIBUTION WIDTH 12.8 % (11.6-14.8); WHITE BLOOD COUNT 6.1 K/UL (4.8-10.8)
[2016-02-29 06:44] LABS: ANION GAP 13 (5-15); CALCIUM 8.9 mg/dL (8.6-10.2); CARBON DIOXIDE 23 mEQ/L (20-30); CHLORIDE 105 mEQ/L (98-107); HEMOLYSIS 2; POTASSIUM 3.6 mEQ/L (3.4-4.9); SODIUM 141 mEQ/L (135-145)
[2016-02-29 08:00] VITALS: BP 152/86
[2016-02-29] MEDS: Aspirin Baby 81mg ORAL SCH (08:04)
[2016-02-29] MEDS: levETIRAcetam 500mg/5ml Liquid GT SCH ×2 (08:04→17:00)
[2016-02-29] MEDS: Heparin 5000 units/ml inj SUBQ SCH ×2 (08:05→21:00)
--- NOTE | 2016-02-29 09:27 | Pulmonology Progress Note ---
Assessment/Plan Assessment/Plan ASSESSMENT sepsis UTI acute encephalopathy 2 to infectious process on chronic OBS ARF on CKI- resolved lung adenocarcinoma with hx of lung surgery dysphagia high aspiration risk BPH urinary retention hypothyroidism OBS seizure disorder PLAN OF CARE MS floor O2 HHN prn antitussive prn fup with CXR in am CT head no acute intracranial pathology abx, ID follows blood cx and influenza screen negative, urine cx not send? IVF, renal parameters improving, creat down to normal nephro follows renal impairment likely 2 to dehydration monitor renal parameters. lytes, improving avoid nephrotoxic urology follows, recommended voiding trial if mental status better, for now continue Proscar, Madiosn draining well seizure precautions, continue Keppra neuro follows EEG abnormal c/w moderate to severe encephalopathy swallow eval and VSSE noted, evidence of dysphagia, and high aspiration risk diet as per ST recommendations PT/OT /ST DVT, GI prophylaxis case discussed and evaluated by supervising physician Subjective Allergies: Coded Allergies: No Known Allergies (Unverified , 02/24/16) Subjective afebrile, no leukocytosis creat down to 1.0 answers simple questions Objective Last 24 Hour Vital Signs Date Time Temp Pulse Resp B/P Pulse Ox O2 Delivery O2 Flow Rate FiO2 02/29/16 08:00 97.7 72 20 152/86 97 Room Air 02/29/16 04:00 98.1 62 22 135/96 96 Room Air 02/29/16 00:00 97.2 75 21 149/81 96 Room Air 02/28/16 20:24 79 18 Room Air 02/28/16 20:12 97.7 83 15 122/79 96 Room Air 02/28/16 15:56 97.5 79 15 118/90 98 Room Air 02/28/16 12:00 96.6 84 20 131/82 97 Room Air Intake and Output 02/28/16 02/29/16 19:00 07:00 Intake Total 900 ml 750 ml Output Total 400 ml 625 ml Balance 500 ml 125 ml IV Total 900 ml 750 ml Output Urine Total 400 ml 625 ml # Bowel Movements 1 Objective General Appearance: no acute distress, weak, confused, but responsive, answers simple questions HEENT: normocephalic, atraumatic, anicteric Respiratory/Chest: lungs clear, no respiratory distress, no accessory muscle use Cardiovascular: normal peripheral pulses, normal rate, regular rhythm, no JVD Abdomen: normal bowel sounds, soft, non tender Genitourinary: normal external genitalia, other - [place] Neurologic/Psychiatric: abnormal gait, alert - confused Musculoskeletal: atrophy - BLE Laboratory Tests 02/28/16 18:50: Vancomycin Level Trough 6.7 02/29/16 05:45: White Blood Count 6.1, Red Blood Count 4.43L, Hemoglobin 12.5L, Hematocrit 39.1L , Mean Corpuscular Volume 88, Mean Corpuscular Hemoglobin 28.3, Mean Corpuscular Hemoglobin Concent 32.0, Red Cell Distribution Width 12.8, Platelet Count 213, Mean Platelet Volume 6.5, Neutrophils (%) (Auto) 72.1, Lymphocytes (% ) (Auto) 14.2L, Monocytes (%) (Auto) 7.4, Eosinophils (%) (Auto) 5.0H, Basophils (%) (Auto) 1.4, Sodium Level 141, Potassium Level 3.6, Chloride Level 105, Carbon Dioxide Level 23, Anion Gap 13, Blood Urea Nitrogen 25H, Creatinine 1.0, Estimat Glomerular Filtration Rate , Glucose Level 108H, Calcium Level 8.9 Current Medications Medications (Trade) Dose Ordered Sig/Christina Route PRN Reason Start Time Stop Time Status Last Admin Dose Admin Acetaminophen (Tylenol) 650 mg Q4H PRN ORAL fever 02/24/16 22:45 03/25/16 22:44 Albuterol/ Ipratropium 3 ml 3 ml Q4H PRN HHN Shortness of Breath 02/27/16 10:45 03/03/16 23:59 Aspirin (ASA) 81 mg DAILY ORAL 02/25/16 09:00 03/26/16 08:59 02/29/16 08:04 Ceftriaxone Sodium/Dextrose (Rocephin/D5W) 55 ml @ 110 mls/hr Q24H IVPB 02/28/16 16:00 03/06/16 15:59 02/28/16 17:08 Clonidine HCl (Catapres) 0.1 mg Q4H PRN ORAL For High Blood Pressure 02/24/16 22:45 03/25/16 22:44 Dextrose (Dextrose 50%) STAT PRN IV Hypoglycemia 02/24/16 22:45 03/25/16 22:44 Dextrose/Sodium Chloride (D5 0.45% NS) 1,000 ml @ 75 mls/hr [id number] IV 02/25/16 16:30 03/26/16 16:29 02/29/16 08:03 Finasteride (Proscar) 5 mg DAILY ORAL 02/25/16 09:00 03/26/16 08:59 02/29/16 08:04 Heparin Sodium (Porcine) (Heparin 5000 units/ml) 5,000 units EVERY 12 HOURS SUBQ 02/25/16 09:00 03/26/16 08:59 02/29/16 08:05 Levetiracetam (Keppra) 500 mg BID GT 02/25/16 09:00 03/26/16 08:59 02/29/16 08:04 Levothyroxine Sodium (Synthroid) 50 mcg ACBREAKFAST ORAL 02/25/16 06:30 03/26/16 06:29 02/29/16 06:23 Lorazepam (Ativan 2mg/ml 1ml) 0.5 mg Q4H PRN IV For Anxiety 02/24/16 22:45 03/02/16 22:44 Morphine Sulfate (Morphine Sulfate) 1 mg Q4H PRN IVP For Pain 7-10 02/24/16 22:45 03/02/16 22:44 Nitroglycerin (Ntg) 0.4 mg Q5M X 3 DOSES PRN SL Prn Chest Pain 02/24/16 22:45 03/25/16 22:44 Ondansetron HCl (Zofran) 4 mg Q6H PRN IVP Nausea & Vomiting 02/24/16 22:45 03/25/16 22:44 Pantoprazole (Protonix) 40 mg DAILY ORAL 02/25/16 16:30 03/26/16 16:29 02/29/16 08:04 Polyethylene Glycol (Miralax) 17 gm HSPRN PRN ORAL Constipation 02/24/16 22:45 03/25/16 22:44 Promethazine HCl/ Codeine 5 ml 5 ml Q4H PRN ORAL For Cough 02/24/16 22:45 03/25/16 22:44 Temazepam (Restoril) 15 mg HSPRN PRN ORAL Insomnia 02/24/16 22:45 03/02/16 22:44 Latosha Overton NP (Vanchtein) Feb 29, 2016 09:27
--- NOTE | 2016-02-29 09:39 | Diagnostic Imaging Report ---
Indication: Dysphasia Procedure and findings: Real-time fluoroscopic imaging performed in a lateral projection in conjunction with the speech pathologist evaluation. Variable consistencies of barium given per mouth. Findings: Significant abnormalities of both oral and pharyngeal phases of swallowing are demonstrated. Total fluoroscopic time 311 seconds. Trace laryngeal penetration demonstrated. No aspiration. Abnormal video swallow. Please refer to speech pathology evaluation for more information.
--- NOTE | 2016-02-29 11:11 | General Progress Note ---
Assessment/Plan Status: stable Assessment/Plan status: ---Acute renal failure due to ? Obstruction and Dehydration- Mainly prerenal picture- RESOLVED Other; - Acute encephalopathy - Urinary tract infection / Sepsis - Altered level of consciousness / Encephalopathy - Adenocarcinoma Plan: Hydrate- Avoid Nephrotoxics- Antibiotics- Urine studies- ? DC planning Subjective ROS Limited/Unobtainable: No Allergies: Coded Allergies: No Known Allergies (Unverified , 02/24/16) Objective Last 24 Hour Vital Signs Date Time Temp Pulse Resp B/P Pulse Ox O2 Delivery O2 Flow Rate FiO2 02/29/16 09:45 73 18 Room Air 21 02/29/16 08:00 97.7 72 20 152/86 97 Room Air 02/29/16 04:00 98.1 62 22 135/96 96 Room Air 02/29/16 00:00 97.2 75 21 149/81 96 Room Air 02/28/16 20:24 79 18 Room Air 02/28/16 20:12 97.7 83 15 122/79 96 Room Air 02/28/16 15:56 97.5 79 15 118/90 98 Room Air 02/28/16 12:00 96.6 84 20 131/82 97 Room Air Intake and Output 02/28/16 02/29/16 19:00 07:00 Intake Total 900 ml 750 ml Output Total 400 ml 625 ml Balance 500 ml 125 ml IV Total 900 ml 750 ml Output Urine Total 400 ml 625 ml # Bowel Movements 1 Laboratory Tests 02/28/16 18:50: Vancomycin Level Trough 6.7 02/29/16 05:45: White Blood Count 6.1, Red Blood Count 4.43L, Hemoglobin 12.5L, Hematocrit 39.1L , Mean Corpuscular Volume 88, Mean Corpuscular Hemoglobin 28.3, Mean Corpuscular Hemoglobin Concent 32.0, Red Cell Distribution Width 12.8, Platelet Count 213, Mean Platelet Volume 6.5, Neutrophils (%) (Auto) 72.1, Lymphocytes (% ) (Auto) 14.2L, Monocytes (%) (Auto) 7.4, Eosinophils (%) (Auto) 5.0H, Basophils (%) (Auto) 1.4, Sodium Level 141, Potassium Level 3.6, Chloride Level 105, Carbon Dioxide Level 23, Anion Gap 13, Blood Urea Nitrogen 25H, Creatinine 1.0, Estimat Glomerular Filtration Rate , Glucose Level 108H, Calcium Level 8.9 Height (Feet): 5 Height (Inches): 3.00 Weight (Pounds): 142 General Appearance: no apparent distress Objective other PE not changed JUAN ALBERTO PUGH Feb 29, 2016 11:11
--- NOTE | 2016-02-29 11:38 | General Progress Note ---
Assessment/Plan Problem List: (1) Urinary tract infection ICD Codes: N39.0 - Urinary tract infection, site not specified SNOMED: 54104446 (2) Sepsis ICD Codes: A41.9 - Sepsis, unspecified organism SNOMED: 92286879 (3) Altered level of consciousness ICD Codes: R40.4 - Transient alteration of awareness SNOMED: 6566288 (4) Adenocarcinoma ICD Codes: C80.1 - Malignant (primary) neoplasm, unspecified SNOMED: 59888328, 483989246, 136732495 (5) Acute encephalopathy ICD Codes: G93.40 - Encephalopathy, unspecified SNOMED: 3324479 Status: progressing Assessment/Plan uti spoke w daughter and told her about findings and plan of care abx per id Subjective ROS Limited/Unobtainable: Yes Allergies: Coded Allergies: No Known Allergies (Unverified , 02/24/16) Objective Last 24 Hour Vital Signs Date Time Temp Pulse Resp B/P Pulse Ox O2 Delivery O2 Flow Rate FiO2 02/29/16 09:45 73 18 Room Air 21 02/29/16 08:00 97.7 72 20 152/86 97 Room Air 02/29/16 04:00 98.1 62 22 135/96 96 Room Air 02/29/16 00:00 97.2 75 21 149/81 96 Room Air 02/28/16 20:24 79 18 Room Air 02/28/16 20:12 97.7 83 15 122/79 96 Room Air 02/28/16 15:56 97.5 79 15 118/90 98 Room Air 02/28/16 12:00 96.6 84 20 131/82 97 Room Air Intake and Output 02/28/16 02/29/16 19:00 07:00 Intake Total 900 ml 750 ml Output Total 400 ml 625 ml Balance 500 ml 125 ml IV Total 900 ml 750 ml Output Urine Total 400 ml 625 ml # Bowel Movements 1 Laboratory Tests 02/28/16 18:50: Vancomycin Level Trough 6.7 02/29/16 05:45: White Blood Count 6.1, Red Blood Count 4.43L, Hemoglobin 12.5L, Hematocrit 39.1L , Mean Corpuscular Volume 88, Mean Corpuscular Hemoglobin 28.3, Mean Corpuscular Hemoglobin Concent 32.0, Red Cell Distribution Width 12.8, Platelet Count 213, Mean Platelet Volume 6.5, Neutrophils (%) (Auto) 72.1, Lymphocytes (% ) (Auto) 14.2L, Monocytes (%) (Auto) 7.4, Eosinophils (%) (Auto) 5.0H, Basophils (%) (Auto) 1.4, Sodium Level 141, Potassium Level 3.6, Chloride Level 105, Carbon Dioxide Level 23, Anion Gap 13, Blood Urea Nitrogen 25H, Creatinine 1.0, Estimat Glomerular Filtration Rate , Glucose Level 108H, Calcium Level 8.9 Height (Feet): 5 Height (Inches): 3.00 Weight (Pounds): 142 General Appearance: confused Cardiovascular: normal rate Respiratory/Chest: lungs clear Nelson Rodriguez MD Feb 29, 2016 11:38
--- NOTE | 2016-02-29 11:45 | Diagnostic Imaging Report ---
Indications: Shortness of breath Technique: Portable AP chest Findings: Comparison: 02/24/16 Inspiratory effort has improved. Cardiac silhouette has apparently decreased in size. Pulmonary vasculature remains within normal limits left lung volume remains decreased with persistent basal linear density. Right lung, bilateral pleural surfaces remain clear. IMPRESSION: Apparent decrease in heart size likely related to improved inspiration No other change from 3 days prior
--- NOTE | 2016-02-29 11:45 | Diagnostic Imaging Report ---
Indication: Chest Pain Comparison: None A single view chest radiograph was obtained. Findings: No definite infiltrate or pulmonary vascular congestion identified. The heart is enlarged. The aorta is mildly enlarged consistent with atherosclerotic vascular disease. The bones are osteopenic. Impression: No acute disease
[2016-02-29 12:00] VITALS: BP 125/80
--- NOTE | 2016-02-29 13:51 | Neurology Progress Note ---
Interim History Interim History Interim History Mr. Mg feels better today. He is very sparse with his words. He is still very subdued. 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 He continues to be generally weak. He has been seizure-free. Review of Systems Neuro Review of Systems Benign. Objective Physical Exam Last Vital Signs Date Time Temp Pulse Resp B/P Pulse Ox O2 Delivery O2 Flow Rate FiO2 02/29/16 12:00 97.3 71 20 125/80 96 Room Air 02/29/16 09:45 21 02/24/16 22:43 10.0 Laboratory Tests Test 02/28/16 18:50 02/29/16 05:45 Vancomycin Level Trough 6.7 ug/mL (5.0-12.0) White Blood Count 6.1 K/UL (4.8-10.8) Red Blood Count 4.43 M/UL (4.70-6.10) L Hemoglobin 12.5 G/DL (14.2-18.0) L Hematocrit 39.1 % (42.0-52.0) L Mean Corpuscular Volume 88 FL (80-99) Mean Corpuscular Hemoglobin 28.3 PG (27.0-31.0) Mean Corpuscular Hemoglobin Concent 32.0 G/DL (32.0-36.0) Red Cell Distribution Width 12.8 % (11.6-14.8) Platelet Count 213 K/UL (150-450) Mean Platelet Volume 6.5 FL (6.5-10.1) Neutrophils (%) (Auto) 72.1 % (45.0-75.0) Lymphocytes (%) (Auto) 14.2 % (20.0-45.0) L Monocytes (%) (Auto) 7.4 % (1.0-10.0) Eosinophils (%) (Auto) 5.0 % (0.0-3.0) H Basophils (%) (Auto) 1.4 % (0.0-2.0) Sodium Level 141 mEQ/L (135-145) Potassium Level 3.6 mEQ/L (3.4-4.9) Chloride Level 105 mEQ/L (98-107) Carbon Dioxide Level 23 mEQ/L (20-30) Anion Gap 13 (5-15) Blood Urea Nitrogen 25 mg/dL (7-23) H Creatinine 1.0 mg/dL (0.7-1.2) Estimat Glomerular Filtration Rate mL/min (>60) Glucose Level 108 mg/dL (74-106) H Calcium Level 8.9 mg/dL (8.6-10.2) Neurologic Exam Objective PHYSICAL EXAMINATION: GENERAL: He is a well-developed, well-nourished, pleasant gentleman, lying in bed, in no acute distress. HEAD: Normocephalic and atraumatic. EENT: Examination benign. NECK: No neck rigidity was observed. NEUROLOGIC EXAMINATION: MENTAL STATUS EXAMINATION: He was awake, but not completely alert. He was oriented to self and hospital. He did not know the name of the hospital. He had no idea of what the date, month, or year was. He was able to recall 3/3 words immediately, but could not remember any of them in 1 minute and 3 minutes. He was unable to tell me who the present president was or who prior presidents were. His mathematical skills were impaired. His visuospatial function was also impaired. SPEECH: He had a mild dysarthria. LANGUAGE: He had anomia for low-frequency words. CRANIAL NERVE EXAMINATION: II: The visual gates were intact to confrontation testing. III, IV & : External ocular movements are full and the pupils 3 mm in diameter, equal, round, regular, and reactive to light. V: He had normal facial sensations and the temporales, masseters, and pterygoids functioned normally. VII: He had left VII central facial paresis. VIII: He was able to hear and had no nystagmus. IX: The palate moved symmetrically on phonation. X: He had no hoarseness of voice. XI: The sternocleidomastoids and trapezii functioned normally. XII: The tongue was in the midline without any fasciculations or atrophy. MOTOR SYSTEM: The tone was normal in all four extremities. Examination of muscle mass revealed no focal wasting. He did, however, have generalized muscle wasting. Examination of power revealed approximately grade 5/5 power except for grade 4/ 5 power in the left iliopsoas and grade 5-/5 power in the right iliopsoas. His effort was poor. SENSORY EXAMINATION: He had intact sensations to pinprick and light touch. He was unable to cooperate for the sensory modalities. REFLEXES: Trace+ on the right and 1+ on the left at the biceps, triceps, brachioradialis, and knees, and 0 at both ankles. The plantar responses were flexor bilaterally. COORDINATION: He performed well on [id number] testing. He was unable to perform [id number] testing. STANCE & GAIT: Could not be tested. Impression/Recommendations Diagnostic Impression 1. Mr. Kirby Mg is an 82-year-old, right-handed, gentleman who does have a prior history of adenocarcinoma of the lung which is in remission now, cognitive dysfunction that started in January 2016 and rapidly progressed , and a single generalized tonic-clonic seizure in February 2016. The patient was in a rehabilitation facility where he was noted to have decline in cognitive function and was also having some abnormal jerking movements of one of his upper extremities; his daughter thinks the right. Since he has been at [facility], his condition seems to have improved. 2. He feels better. He continues to exhibit significant cognitive and motor dysfunction. He is also severely psychomotor retarded. 3. On neurological examination, at this time, he demonstrates problems with orientation, recent and remote memory, visuospatial function, higher cognitive function and language. He also has left VII central facial paresis, quadriparesis involving the left side significantly more than the right and brisker reflexes on the left side. 4. The CT scan of the brain performed at [facility] reveals significant atrophy and deep white matter disease and in addition an area of calcification in the right parietal area. 5. Laboratory data obtained thus far revealed that he is mildly anemic with a hemoglobin of 13.3. When he came in, his WBC count was elevated to 14.7 with a left-sided shift. His electrolyte panel revealed his BUN elevated to 63 with a creatinine of 3.8, glucose of 154, and a proBNP of 872. His TSH is normal at 1.84. His urinalysis reveals that he does have a urinary tract infection with 1 + leukocyte esterase, 5 to 10 red blood cells, and 5 to 10 white blood cells per high-power field. His ammonia was normal. 6. The EEG revealed a moderately severe toxic/metabolic encephalopathy 7. The patient's history and neurological examination are most compatible with a significant encephalopathic process due to right greater than left brain dysfunction, electrolyte imbalances, urinary tract infection, and possibly a postictal state. 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 Recommendations 1. Continue present management. 2. Continue treating the patient's urinary tract infection aggressively. 3. Continue treating the patient's renal dysfunction as per Dr. Bowman. 4. Continue Keppra 500 mg q.12 h 5. Mobilize with PT/OT. Ray Wong M.D., M.S.P.H. RAY WONG Feb 29, 2016 13:51
[2016-02-29] MEDS ORDERED: D5 1/2NS 1000ml IV ONE (15:21)
[2016-02-29] MEDS ORDERED: Tubing IV Secondary IV ONE (15:21)
[2016-02-29 16:00] VITALS: BP 148/91
--- NOTE | 2016-02-29 16:00 | Infectious Diseases Prog Note ---
Assessment/Plan Problems: (1) Sepsis Assessment & Plan: blood culture is negative so far, urine culture was not done , will keep him on ceftriaxon for UTI (2) Urinary tract infection Assessment & Plan: on ceftriaxon , no urine culture was done . (3) SUSAN (acute kidney injury) Assessment & Plan: improving , suspect dehydration and obstruction related, continue IVF, monitor UOP, avoid nephrotoxic meds (4) Altered level of consciousness Assessment & Plan: multifactorial, on antibiotics for UTI, Neurology is following (5) Adenocarcinoma Assessment & Plan: of the lung, S/P surgical resection, radiation and chemotherapy at [facility], unclear whether in remission or not, follow up with [facility] Subjective Constitutional: Denies: anorexia, chills, drenching sweats, fatigue, fever, no symptoms, other HEENT: Denies: congestion, coryza, dysphagia, hearing change, no symptoms, other, visual change Breasts: Denies: discharge, no symptoms, other, swelling, tenderness Gastrointestinal/Abdominal: Denies: bloating, blood in stool, constipation, diarrhea, nausea, no symptoms, other, vomiting Genitourinary: Denies: dysuria, frequency, hematuria, no symptoms, nocturia, other Neurologic: Denies: confusion, headache, no symptoms, numbness, other, weakness Psychiatric: Denies: anxiety, depression, no symptoms, other Skin: Denies: no symptoms, other, rash, ulcer Endocrine: Denies: feels cold, feels warm, no symptoms, other Allergies: Coded Allergies: No Known Allergies (Unverified , 02/24/16) Subjective he was awake and alert, denied any fever or chills, no cough, or SOB, no diarrhea Objective Vital Signs Last 24 Hour Vital Signs Date Time Temp Pulse Resp B/P Pulse Ox O2 Delivery O2 Flow Rate FiO2 02/29/16 12:00 97.3 71 20 125/80 96 Room Air 02/29/16 09:45 73 18 Room Air 21 02/29/16 08:00 97.7 72 20 152/86 97 Room Air 02/29/16 04:00 98.1 62 22 135/96 96 Room Air 02/29/16 00:00 97.2 75 21 149/81 96 Room Air 02/28/16 20:24 79 18 Room Air 02/28/16 20:12 97.7 83 15 122/79 96 Room Air Height (Feet): 5 Height (Inches): 3.00 Weight (Pounds): 142 General Appearance: WD/WN, no acute distress HEENT: normocephalic, atraumatic, anicteric, mucous membranes moist, PERRL Respiratory/Chest: chest wall non-tender, lungs clear, normal breath sounds, no respiratory distress, no accessory muscle use Cardiovascular: normal peripheral pulses, normal rate, regular rhythm, no gallop/murmur Abdomen: normal bowel sounds, soft, non tender, no organomegaly, non distended , no mass, no scars Extremities: no cyanosis, no clubbing Skin: no rash, no lesions, no ulcers Laboratory Tests Test 02/28/16 18:50 02/29/16 05:45 Vancomycin Level Trough 6.7 ug/mL (5.0-12.0) White Blood Count 6.1 K/UL (4.8-10.8) Red Blood Count 4.43 M/UL (4.70-6.10) L Hemoglobin 12.5 G/DL (14.2-18.0) L Hematocrit 39.1 % (42.0-52.0) L Mean Corpuscular Volume 88 FL (80-99) Mean Corpuscular Hemoglobin 28.3 PG (27.0-31.0) Mean Corpuscular Hemoglobin Concent 32.0 G/DL (32.0-36.0) Red Cell Distribution Width 12.8 % (11.6-14.8) Platelet Count 213 K/UL (150-450) Mean Platelet Volume 6.5 FL (6.5-10.1) Neutrophils (%) (Auto) 72.1 % (45.0-75.0) Lymphocytes (%) (Auto) 14.2 % (20.0-45.0) L Monocytes (%) (Auto) 7.4 % (1.0-10.0) Eosinophils (%) (Auto) 5.0 % (0.0-3.0) H Basophils (%) (Auto) 1.4 % (0.0-2.0) Sodium Level 141 mEQ/L (135-145) Potassium Level 3.6 mEQ/L (3.4-4.9) Chloride Level 105 mEQ/L (98-107) Carbon Dioxide Level 23 mEQ/L (20-30) Anion Gap 13 (5-15) Blood Urea Nitrogen 25 mg/dL (7-23) H Creatinine 1.0 mg/dL (0.7-1.2) Estimat Glomerular Filtration Rate mL/min (>60) Glucose Level 108 mg/dL (74-106) H Calcium Level 8.9 mg/dL (8.6-10.2) Current Medications Medications (Trade) Dose Ordered Sig/Christina Route PRN Reason Start Time Stop Time Status Last Admin Dose Admin Acetaminophen (Tylenol) 650 mg Q4H PRN ORAL fever 02/24/16 22:45 03/25/16 22:44 Albuterol/ Ipratropium 3 ml 3 ml Q4H PRN HHN Shortness of Breath 02/27/16 10:45 03/03/16 23:59 Aspirin (ASA) 81 mg DAILY ORAL 02/25/16 09:00 03/26/16 08:59 02/29/16 08:04 Ceftriaxone Sodium/Dextrose (Rocephin/D5W) 55 ml @ 110 mls/hr Q24H IVPB 02/28/16 16:00 03/06/16 15:59 02/28/16 17:08 Clonidine HCl (Catapres) 0.1 mg Q4H PRN ORAL For High Blood Pressure 02/24/16 22:45 03/25/16 22:44 Dextrose (Dextrose 50%) STAT PRN IV Hypoglycemia 02/24/16 22:45 03/25/16 22:44 Dextrose/Sodium Chloride (D5 0.45% NS) 1,000 ml @ 75 mls/hr [id number] IV 02/25/16 16:30 03/26/16 16:29 02/29/16 08:03 Finasteride (Proscar) 5 mg DAILY ORAL 02/25/16 09:00 03/26/16 08:59 02/29/16 08:04 Heparin Sodium (Porcine) (Heparin 5000 units/ml) 5,000 units EVERY 12 HOURS SUBQ 02/25/16 09:00 03/26/16 08:59 02/29/16 08:05 Levetiracetam (Keppra) 500 mg BID GT 02/25/16 09:00 03/26/16 08:59 02/29/16 08:04 Levothyroxine Sodium (Synthroid) 50 mcg ACBREAKFAST ORAL 02/25/16 06:30 03/26/16 06:29 02/29/16 06:23 Lorazepam (Ativan 2mg/ml 1ml) 0.5 mg Q4H PRN IV For Anxiety 02/24/16 22:45 03/02/16 22:44 Morphine Sulfate (Morphine Sulfate) 1 mg Q4H PRN IVP For Pain 7-10 02/24/16 22:45 03/02/16 22:44 Nitroglycerin (Ntg) 0.4 mg Q5M X 3 DOSES PRN SL Prn Chest Pain 02/24/16 22:45 03/25/16 22:44 Ondansetron HCl (Zofran) 4 mg Q6H PRN IVP Nausea & Vomiting 02/24/16 22:45 03/25/16 22:44 Pantoprazole (Protonix) 40 mg DAILY ORAL 02/25/16 16:30 03/26/16 16:29 02/29/16 08:04 Polyethylene Glycol (Miralax) 17 gm HSPRN PRN ORAL Constipation 02/24/16 22:45 03/25/16 22:44 Promethazine HCl/ Codeine 5 ml 5 ml Q4H PRN ORAL For Cough 02/24/16 22:45 03/25/16 22:44 Temazepam (Restoril) 15 mg HSPRN PRN ORAL Insomnia 02/24/16 22:45 03/02/16 22:44 Nabor Gonzales M.D. Feb 29, 2016 16:00
[2016-02-29] MEDS: cefTRIAXone 1 GM in D5W 55 ML IVPB SCH (16:30)
[2016-02-29 20:00] VITALS: BP 152/97
[2016-03-01] VITALS: BP 153/91
[2016-03-01 04:00] VITALS: BP 141/88
[2016-03-01 07:33] LABS: EOSINOPHILS % (AUTO) 3.2 % (0.0-3.0); MEAN CORPUSCULAR HEMOGLOBIN 27.6 PG (27.0-31.0); MEAN CORPUSCULAR HGB CONC 31.5 G/DL (32.0-36.0); MEAN CORPUSCULAR VOLUME 88 FL (80-99); MEAN PLATELET VOLUME 6.2 FL (6.5-10.1); MONOCYTES % (AUTO) 7.2 % (1.0-10.0); NEUTROPHILS % (AUTO) 77.7 % (45.0-75.0); PLATELET COUNT 232 K/UL (150-450); RED CELL DISTRIBUTION WIDTH 12.7 % (11.6-14.8); WHITE BLOOD COUNT 7.6 K/UL (4.8-10.8)
[2016-03-01 08:00] VITALS: BP 139/98
[2016-03-01 08:00] LABS: ANION GAP 14 (5-15); CALCIUM 9.1 mg/dL (8.6-10.2); CARBON DIOXIDE 25 mEQ/L (20-30); CHLORIDE 103 mEQ/L (98-107); CREATININE 1.1 mg/dL (0.7-1.2); HEMOLYSIS 6; POTASSIUM 3.4 mEQ/L (3.4-4.9); SODIUM 142 mEQ/L (135-145)
[2016-03-01] MEDS: levETIRAcetam 500mg/5ml Liquid GT SCH ×2 (09:00→19:21)
--- NOTE | 2016-03-01 09:36 | General Progress Note ---
Assessment/Plan Status: stable Assessment/Plan status: ---Acute renal failure due to ? Obstruction and Dehydration- Mainly prerenal picture- RESOLVED Other; - Acute encephalopathy - Urinary tract infection / Sepsis - Altered level of consciousness / Encephalopathy - Adenocarcinoma Plan: Hydrate- Avoid Nephrotoxics- Antibiotics- Urine studies- ? DC planning Subjective ROS Limited/Unobtainable: No Constitutional: Reports: malaise Allergies: Coded Allergies: No Known Allergies (Unverified , 02/24/16) Objective Last 24 Hour Vital Signs Date Time Temp Pulse Resp B/P Pulse Ox O2 Delivery O2 Flow Rate FiO2 03/01/16 06:40 68 17 Room Air 21 03/01/16 04:00 97.7 67 16 141/88 97 Room Air 03/01/16 00:00 96.8 76 18 153/91 96 Room Air 02/29/16 20:40 73 18 Room Air 21 02/29/16 20:00 96.6 77 21 152/97 95 Room Air 02/29/16 16:00 97.2 77 20 148/91 97 Room Air 02/29/16 12:00 97.3 71 20 125/80 96 Room Air 02/29/16 09:45 73 18 Room Air 21 Intake and Output 02/29/16 03/01/16 19:00 07:00 Intake Total 360 ml 120 ml Output Total 300 ml 850 ml Balance 60 ml -730 ml Intake Oral 360 ml 120 ml Output Urine Total 300 ml 850 ml # Bowel Movements 1 Laboratory Tests 03/01/16 05:30: White Blood Count 7.6, Red Blood Count 4.60L, Hemoglobin 12.7L, Hematocrit 40.3L , Mean Corpuscular Volume 88, Mean Corpuscular Hemoglobin 27.6, Mean Corpuscular Hemoglobin Concent 31.5L, Red Cell Distribution Width 12.7, Platelet Count 232, Mean Platelet Volume 6.2L, Neutrophils (%) (Auto) 77.7H, Lymphocytes (%) (Auto) 11.0L, Monocytes (%) (Auto) 7.2, Eosinophils (%) (Auto) 3.2H, Basophils (%) (Auto) 1.0, Sodium Level 142, Potassium Level 3.4, Chloride Level 103, Carbon Dioxide Level 25, Anion Gap 14, Blood Urea Nitrogen 21, Creatinine 1.1, Estimat Glomerular Filtration Rate , Glucose Level 104, Calcium Level 9.1 Height (Feet): 5 Height (Inches): 3.00 Weight (Pounds): 142 General Appearance: no apparent distress Objective other PE not changed JUAN ALBERTO PUGH Mar 01, 2016 09:36
[2016-03-01] MEDS: Aspirin Baby 81mg ORAL SCH (09:53)
[2016-03-01] MEDS: Heparin 5000 units/ml inj SUBQ SCH ×2 (09:55→20:45)
[2016-03-01] MEDS ORDERED: KCl 10% 40mEq/30ml liquid ORAL ONE (10:00)
[2016-03-01 12:00] VITALS: BP 135/87
--- NOTE | 2016-03-01 14:13 | General Progress Note ---
Assessment/Plan Problem List: (1) Urinary tract infection ICD Codes: N39.0 - Urinary tract infection, site not specified SNOMED: 65027068 (2) Sepsis ICD Codes: A41.9 - Sepsis, unspecified organism SNOMED: 12322159 (3) Altered level of consciousness ICD Codes: R40.4 - Transient alteration of awareness SNOMED: 8759846 (4) Adenocarcinoma ICD Codes: C80.1 - Malignant (primary) neoplasm, unspecified SNOMED: 08465971, 601335415, 183197058 (5) Acute encephalopathy ICD Codes: G93.40 - Encephalopathy, unspecified SNOMED: 9747602 Status: progressing Assessment/Plan uti diarrhea so ordered c diff ofr diarrhea needs to go to snf for pt and iv abx Subjective ROS Limited/Unobtainable: Yes Constitutional: Reports: no symptoms Allergies: Coded Allergies: No Known Allergies (Unverified , 02/24/16) Objective Last 24 Hour Vital Signs Date Time Temp Pulse Resp B/P Pulse Ox O2 Delivery O2 Flow Rate FiO2 03/01/16 12:00 97.2 68 18 135/87 96 Room Air 03/01/16 08:00 97.9 77 18 139/98 93 Room Air 03/01/16 06:40 68 17 Room Air 21 03/01/16 04:00 97.7 67 16 141/88 97 Room Air 03/01/16 00:00 96.8 76 18 153/91 96 Room Air 02/29/16 20:40 73 18 Room Air 21 02/29/16 20:00 96.6 77 21 152/97 95 Room Air 02/29/16 16:00 97.2 77 20 148/91 97 Room Air Intake and Output 02/29/16 03/01/16 19:00 07:00 Intake Total 360 ml 195 ml Output Total 300 ml 850 ml Balance 60 ml -655 ml Intake Oral 360 ml 120 ml IV Total 75 ml Output Urine Total 300 ml 850 ml # Bowel Movements 1 Laboratory Tests 03/01/16 05:30: White Blood Count 7.6, Red Blood Count 4.60L, Hemoglobin 12.7L, Hematocrit 40.3L , Mean Corpuscular Volume 88, Mean Corpuscular Hemoglobin 27.6, Mean Corpuscular Hemoglobin Concent 31.5L, Red Cell Distribution Width 12.7, Platelet Count 232, Mean Platelet Volume 6.2L, Neutrophils (%) (Auto) 77.7H, Lymphocytes (%) (Auto) 11.0L, Monocytes (%) (Auto) 7.2, Eosinophils (%) (Auto) 3.2H, Basophils (%) (Auto) 1.0, Sodium Level 142, Potassium Level 3.4, Chloride Level 103, Carbon Dioxide Level 25, Anion Gap 14, Blood Urea Nitrogen 21, Creatinine 1.1, Estimat Glomerular Filtration Rate , Glucose Level 104, Calcium Level 9.1 Height (Feet): 5 Height (Inches): 3.00 Weight (Pounds): 142 EENT: PERRL/EOMI Neck: supple Cardiovascular: normal rate Respiratory/Chest: lungs clear Abdomen: soft Nelson Rodriguez MD Mar 01, 2016 14:13
[2016-03-01 16:19] VITALS: BP 140/93
[2016-03-01] MEDS: cefTRIAXone 1 GM in D5W 55 ML IVPB SCH (16:28)
[2016-03-01] MEDS: D5 1/2NS 1,000 ML IV SCH (16:29)
--- NOTE | 2016-03-01 17:12 | Infectious Diseases Prog Note ---
Assessment/Plan Problems: (1) Sepsis Assessment & Plan: ruled out, with negative blood culture , urine culture was not done , already received 7 days of antibiotics will D/C ceftriaxon today (2) Diarrhea Assessment & Plan: suspect due to antibiotics, will send stool for C diff, and D/C ceftriaxon (3) Urinary tract infection Assessment & Plan: on ceftriaxon , already received antibiotics for 7 days, will D/C ceftriaxon today, no urine culture was done . 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, S/P surgical resection, radiation and chemotherapy at [facility], unclear whether in remission or not, follow up with [facility] Subjective ROS Limited/Unobtainable: Yes Allergies: Coded Allergies: No Known Allergies (Unverified , 02/24/16) 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, was awake and alert, denied any fever or chills, no cough, or SOB, no diarrhea , follows commands Objective Vital Signs Last 24 Hour Vital Signs Date Time Temp Pulse Resp B/P Pulse Ox O2 Delivery O2 Flow Rate FiO2 03/01/16 16:19 97.7 67 18 140/93 97 Room Air 03/01/16 12:00 97.2 68 18 135/87 96 Room Air 03/01/16 08:00 97.9 77 18 139/98 93 Room Air 03/01/16 06:40 68 17 Room Air 03/01/16 04:00 97.7 67 16 141/88 97 Room Air 03/01/16 00:00 96.8 76 18 153/91 96 Room Air 02/29/16 20:40 73 18 Room Air 21 02/29/16 20:00 96.6 77 21 152/97 95 Room Air Height (Feet): 5 Height (Inches): 3.00 Weight (Pounds): 142 General Appearance: WD/WN, no acute distress HEENT: normocephalic, atraumatic, anicteric, mucous membranes moist Respiratory/Chest: chest wall non-tender, lungs clear, normal breath sounds, no respiratory distress, no accessory muscle use Cardiovascular: normal peripheral pulses, normal rate, regular rhythm, no gallop/murmur Abdomen: normal bowel sounds, soft, non tender, no organomegaly, non distended , no mass, no scars Extremities: no cyanosis, no clubbing Skin: no rash, no lesions, no ulcers Laboratory Tests Test 03/01/16 05:30 White Blood Count 7.6 K/UL (4.8-10.8) Red Blood Count 4.60 M/UL (4.70-6.10) L Hemoglobin 12.7 G/DL (14.2-18.0) L Hematocrit 40.3 % (42.0-52.0) L Mean Corpuscular Volume 88 FL (80-99) Mean Corpuscular Hemoglobin 27.6 PG (27.0-31.0) Mean Corpuscular Hemoglobin Concent 31.5 G/DL (32.0-36.0) L Red Cell Distribution Width 12.7 % (11.6-14.8) Platelet Count 232 K/UL (150-450) Mean Platelet Volume 6.2 FL (6.5-10.1) L Neutrophils (%) (Auto) 77.7 % (45.0-75.0) H Lymphocytes (%) (Auto) 11.0 % (20.0-45.0) L Monocytes (%) (Auto) 7.2 % (1.0-10.0) Eosinophils (%) (Auto) 3.2 % (0.0-3.0) H Basophils (%) (Auto) 1.0 % (0.0-2.0) Sodium Level 142 mEQ/L (135-145) Potassium Level 3.4 mEQ/L (3.4-4.9) Chloride Level 103 mEQ/L (98-107) Carbon Dioxide Level 25 mEQ/L (20-30) Anion Gap 14 (5-15) Blood Urea Nitrogen 21 mg/dL (7-23) Creatinine 1.1 mg/dL (0.7-1.2) Estimat Glomerular Filtration Rate mL/min (>60) Glucose Level 104 mg/dL (74-106) Calcium Level 9.1 mg/dL (8.6-10.2) Current Medications Medications (Trade) Dose Ordered Sig/Christina Route PRN Reason Start Time Stop Time Status Last Admin Dose Admin Acetaminophen (Tylenol) 650 mg Q4H PRN ORAL fever 02/24/16 22:45 03/25/16 22:44 Albuterol/ Ipratropium 3 ml 3 ml Q4H PRN HHN Shortness of Breath 02/27/16 10:45 03/03/16 23:59 Aspirin (ASA) 81 mg DAILY ORAL 02/25/16 09:00 03/26/16 08:59 03/01/16 09:53 Ceftriaxone Sodium/Dextrose (Rocephin/D5W) 55 ml @ 110 mls/hr Q24H IVPB 02/28/16 16:00 03/06/16 15:59 03/01/16 16:28 Clonidine HCl (Catapres) 0.1 mg Q4H PRN ORAL For High Blood Pressure 02/24/16 22:45 03/25/16 22:44 Dextrose (Dextrose 50%) STAT PRN IV Hypoglycemia 02/24/16 22:45 03/25/16 22:44 Dextrose/Sodium Chloride (D5 0.45% NS) 1,000 ml @ 75 mls/hr [id number] IV 02/25/16 16:30 03/26/16 16:29 03/01/16 16:29 Finasteride (Proscar) 5 mg DAILY ORAL 02/25/16 09:00 03/26/16 08:59 03/01/16 09:53 Heparin Sodium (Porcine) (Heparin 5000 units/ml) 5,000 units EVERY 12 HOURS SUBQ 02/25/16 09:00 03/26/16 08:59 03/01/16 09:55 Levetiracetam (Keppra) 500 mg BID GT 02/25/16 09:00 03/26/16 08:59 03/01/16 09:00 Levothyroxine Sodium (Synthroid) 50 mcg ACBREAKFAST ORAL 02/25/16 06:30 03/26/16 06:29 03/01/16 06:31 Lorazepam (Ativan 2mg/ml 1ml) 0.5 mg Q4H PRN IV For Anxiety 02/24/16 22:45 03/02/16 22:44 Morphine Sulfate (Morphine Sulfate) 1 mg Q4H PRN IVP For Pain 7-10 02/24/16 22:45 03/02/16 22:44 Nitroglycerin (Ntg) 0.4 mg Q5M X 3 DOSES PRN SL Prn Chest Pain 02/24/16 22:45 03/25/16 22:44 Ondansetron HCl (Zofran) 4 mg Q6H PRN IVP Nausea & Vomiting 02/24/16 22:45 03/25/16 22:44 Pantoprazole (Protonix) 40 mg DAILY ORAL 02/25/16 16:30 03/26/16 16:29 03/01/16 09:00 Polyethylene Glycol (Miralax) 17 gm HSPRN PRN ORAL Constipation 02/24/16 22:45 03/25/16 22:44 Promethazine HCl/ Codeine 5 ml 5 ml Q4H PRN ORAL For Cough 02/24/16 22:45 03/25/16 22:44 Temazepam (Restoril) 15 mg HSPRN PRN ORAL Insomnia 02/24/16 22:45 03/02/16 22:44 02/29/16 22:14 Nabor Gonzales M.D. Mar 01, 2016 17:12
--- NOTE | 2016-03-01 17:38 | Pulmonology Progress Note ---
Assessment/Plan Problems: (1) Acute encephalopathy (2) Urinary tract infection (3) Altered level of consciousness (4) SUSAN (acute kidney injury) (5) Adenocarcinoma Assessment/Plan check cultures IV antibiotics check electrolytes renal f/u ok to dc to any facility dvt prophylaxis Subjective ROS Limited/Unobtainable: Yes - awake, Interval Events: awake, not communicationg Allergies: Coded Allergies: No Known Allergies (Unverified , 02/24/16) Objective Last 24 Hour Vital Signs Date Time Temp Pulse Resp B/P Pulse Ox O2 Delivery O2 Flow Rate FiO2 03/01/16 16:19 97.7 67 18 140/93 97 Room Air 03/01/16 12:00 97.2 68 18 135/87 96 Room Air 03/01/16 08:00 97.9 77 18 139/98 93 Room Air 03/01/16 06:40 68 17 Room Air 21 03/01/16 04:00 97.7 67 16 141/88 97 Room Air 03/01/16 00:00 96.8 76 18 153/91 96 Room Air 02/29/16 20:40 73 18 Room Air 21 02/29/16 20:00 96.6 77 21 152/97 95 Room Air Intake and Output 02/29/16 03/01/16 19:00 07:00 Intake Total 360 ml 195 ml Output Total 300 ml 850 ml Balance 60 ml -655 ml Intake Oral 360 ml 120 ml IV Total 75 ml Output Urine Total 300 ml 850 ml # Bowel Movements 1 HEENT: normocephalic, atraumatic Respiratory/Chest: chest wall non-tender, normal breath sounds Cardiovascular: normal peripheral pulses Abdomen: normal bowel sounds, soft, non tender Extremities: no cyanosis Neurologic/Psychiatric: evaluator II-XII grossly normal, normal mood/affect Laboratory Tests 03/01/16 05:30: White Blood Count 7.6, Red Blood Count 4.60L, Hemoglobin 12.7L, Hematocrit 40.3L , Mean Corpuscular Volume 88, Mean Corpuscular Hemoglobin 27.6, Mean Corpuscular Hemoglobin Concent 31.5L, Red Cell Distribution Width 12.7, Platelet Count 232, Mean Platelet Volume 6.2L, Neutrophils (%) (Auto) 77.7H, Lymphocytes (%) (Auto) 11.0L, Monocytes (%) (Auto) 7.2, Eosinophils (%) (Auto) 3.2H, Basophils (%) (Auto) 1.0, Sodium Level 142, Potassium Level 3.4, Chloride Level 103, Carbon Dioxide Level 25, Anion Gap 14, Blood Urea Nitrogen 21, Creatinine 1.1, Estimat Glomerular Filtration Rate , Glucose Level 104, Calcium Level 9.1 Current Medications Medications (Trade) Dose Ordered Sig/Christina Route PRN Reason Start Time Stop Time Status Last Admin Dose Admin Acetaminophen (Tylenol) 650 mg Q4H PRN ORAL fever 02/24/16 22:45 03/25/16 22:44 Albuterol/ Ipratropium (DuoNeb 0.5-3(2.5)mg/3ml) 3 ml Q4H PRN HHN Shortness of Breath 02/27/16 10:45 03/03/16 23:59 Aspirin (ASA) 81 mg DAILY ORAL 02/25/16 09:00 03/26/16 08:59 03/01/16 09:53 Clonidine HCl (Catapres) 0.1 mg Q4H PRN ORAL For High Blood Pressure 02/24/16 22:45 03/25/16 22:44 Dextrose (Dextrose 50%) STAT PRN IV Hypoglycemia 02/24/16 22:45 03/25/16 22:44 Dextrose/Sodium Chloride (D5 0.45% NS) 1,000 ml @ 75 mls/hr [id number] IV 02/25/16 16:30 03/26/16 16:29 03/01/16 16:29 Finasteride (Proscar) 5 mg DAILY ORAL 02/25/16 09:00 03/26/16 08:59 03/01/16 09:53 Heparin Sodium (Porcine) (Heparin 5000 units/ml) 5,000 units EVERY 12 HOURS SUBQ 02/25/16 09:00 03/26/16 08:59 03/01/16 09:55 Levetiracetam (Keppra) 500 mg BID GT 02/25/16 09:00 03/26/16 08:59 03/01/16 09:00 Levothyroxine Sodium (Synthroid) 50 mcg ACBREAKFAST ORAL 02/25/16 06:30 03/26/16 06:29 03/01/16 06:31 Lorazepam (Ativan 2mg/ml 1ml) 0.5 mg Q4H PRN IV For Anxiety 02/24/16 22:45 03/02/16 22:44 Morphine Sulfate (Morphine Sulfate) 1 mg Q4H PRN IVP For Pain 7-10 02/24/16 22:45 03/02/16 22:44 Nitroglycerin (Ntg) 0.4 mg Q5M X 3 DOSES PRN SL Prn Chest Pain 02/24/16 22:45 03/25/16 22:44 Ondansetron HCl (Zofran) 4 mg Q6H PRN IVP Nausea & Vomiting 02/24/16 22:45 03/25/16 22:44 Pantoprazole (Protonix) 40 mg DAILY ORAL 02/25/16 16:30 03/26/16 16:29 03/01/16 09:00 Polyethylene Glycol (Miralax) 17 gm HSPRN PRN ORAL Constipation 02/24/16 22:45 03/25/16 22:44 Promethazine HCl/ Codeine 5 ml 5 ml Q4H PRN ORAL For Cough 02/24/16 22:45 03/25/16 22:44 Temazepam (Restoril) 15 mg HSPRN PRN ORAL Insomnia 02/24/16 22:45 03/02/16 22:44 02/29/16 22:14 HELADIO AMBRIZ Mar 01, 2016 17:38
[2016-03-01 20:00] VITALS: BP 148/94
--- NOTE | 2016-03-01 21:04 | Neurology Progress Note ---
Interim History Interim History Interim History Mr. Mg feels about the same as yesterday. He is still very sparse with his words. He is still very subdued. 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 He continues to be generally weak. He has been seizure-free. Review of Systems Neuro Review of Systems Benign. Objective Physical Exam Last Vital Signs Date Time Temp Pulse Resp B/P Pulse Ox O2 Delivery O2 Flow Rate FiO2 03/01/16 16:19 97.7 67 18 140/93 97 Room Air 03/01/16 06:40 21 02/24/16 22:43 10.0 Laboratory Tests Test 03/01/16 05:30 White Blood Count 7.6 K/UL (4.8-10.8) Red Blood Count 4.60 M/UL (4.70-6.10) L Hemoglobin 12.7 G/DL (14.2-18.0) L Hematocrit 40.3 % (42.0-52.0) L Mean Corpuscular Volume 88 FL (80-99) Mean Corpuscular Hemoglobin 27.6 PG (27.0-31.0) Mean Corpuscular Hemoglobin Concent 31.5 G/DL (32.0-36.0) L Red Cell Distribution Width 12.7 % (11.6-14.8) Platelet Count 232 K/UL (150-450) Mean Platelet Volume 6.2 FL (6.5-10.1) L Neutrophils (%) (Auto) 77.7 % (45.0-75.0) H Lymphocytes (%) (Auto) 11.0 % (20.0-45.0) L Monocytes (%) (Auto) 7.2 % (1.0-10.0) Eosinophils (%) (Auto) 3.2 % (0.0-3.0) H Basophils (%) (Auto) 1.0 % (0.0-2.0) Sodium Level 142 mEQ/L (135-145) Potassium Level 3.4 mEQ/L (3.4-4.9) Chloride Level 103 mEQ/L (98-107) Carbon Dioxide Level 25 mEQ/L (20-30) Anion Gap 14 (5-15) Blood Urea Nitrogen 21 mg/dL (7-23) Creatinine 1.1 mg/dL (0.7-1.2) Estimat Glomerular Filtration Rate mL/min (>60) Glucose Level 104 mg/dL (74-106) Calcium Level 9.1 mg/dL (8.6-10.2) Neurologic Exam Objective PHYSICAL EXAMINATION: GENERAL: He is a well-developed, well-nourished, pleasant gentleman, lying in bed, in no acute distress. HEAD: Normocephalic and atraumatic. EENT: Examination benign. NECK: No neck rigidity was observed. NEUROLOGIC EXAMINATION: MENTAL STATUS EXAMINATION: He was awake, but not completely alert. He was oriented to self and hospital. He did not cooperate for further mental status testing. SPEECH: He had a mild dysarthria. LANGUAGE: He had anomia for low-frequency words. CRANIAL NERVE EXAMINATION: II: The visual gates were intact to threat. III, IV & : External ocular movements are full and the pupils 3 mm in diameter, equal, round, regular, and reactive to light. V: He had normal facial sensations and the temporales, masseters, and pterygoids functioned normally. VII: He had left VII central facial paresis. VIII: He was able to hear and had no nystagmus. IX: The palate moved symmetrically on phonation. X: He had no hoarseness of voice. XI: The sternocleidomastoids and trapezii functioned normally. XII: The tongue was in the midline without any fasciculations or atrophy. MOTOR SYSTEM: The tone was normal in all four extremities. Examination of muscle mass revealed no focal wasting. He did, however, have generalized muscle wasting. Examination of power revealed approximately grade 5/5 power except for grade 4/ 5 power in the left iliopsoas and grade 5-/5 power in the right iliopsoas. His effort was poor. SENSORY EXAMINATION: He had intact sensations to deep pain. He was unable to cooperate for the sensory modalities. REFLEXES: Trace+ on the right and 1+ on the left at the biceps, triceps, brachioradialis, and knees, and 0 at both ankles. The plantar responses were flexor bilaterally. COORDINATION: Could not be tested. STANCE & GAIT: Could not be tested. Impression/Recommendations Diagnostic Impression 1. Mr. Kirby Mg is an 82-year-old, right-handed, gentleman who does have a prior history of adenocarcinoma of the lung which is in remission now, cognitive dysfunction that started in January 2016 and rapidly progressed , and a single generalized tonic-clonic seizure in February 2016. The patient was in a rehabilitation facility where he was noted to have decline in cognitive function and was also having some abnormal jerking movements of one of his upper extremities; his daughter thinks the right. Since he has been at [facility], his condition seems to have improved. 2. He feels about the same as yesterday. He continues to exhibit significant cognitive and motor dysfunction. He is also severely psychomotor retarded. 3. On neurological examination, at this time, he demonstrates problems with orientation and does not cooperate for further mental status testing. He also has left VII central facial paresis, quadriparesis involving the left side significantly more than the right and brisker reflexes on the left side. 4. The CT scan of the brain performed at [facility] reveals significant atrophy and deep white matter disease and in addition an area of calcification in the right parietal area. 5. Laboratory data obtained thus far revealed that he is mildly anemic with a hemoglobin of 13.3. When he came in, his WBC count was elevated to 14.7 with a left-sided shift. His electrolyte panel revealed his BUN elevated to 63 with a creatinine of 3.8, glucose of 154, and a proBNP of 872. His TSH is normal at 1.84. His urinalysis reveals that he does have a urinary tract infection with 1 + leukocyte esterase, 5 to 10 red blood cells, and 5 to 10 white blood cells per high-power field. His ammonia was normal. 6. The EEG revealed a moderately severe toxic/metabolic encephalopathy 7. The patient's history and neurological examination are most compatible with a significant encephalopathic process due to right greater than left brain dysfunction, electrolyte imbalances, urinary tract infection, and possibly a postictal state. 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 Recommendations 1. Continue present management. 2. Continue treating the patient's urinary tract infection aggressively. 3. Continue treating the patient's renal dysfunction as per Dr. Bowman. 4. Continue Keppra 500 mg q.12 h 5. Mobilize with PT/OT. Verito K. Marry, M.D., Rodriguez. VERITO WONG Mar 01, 2016 21:04
[2016-03-02] VITALS: BP 156/91
[2016-03-02 04:00] VITALS: BP 148/80
[2016-03-02] MEDS: D5 1/2NS 1,000 ML IV SCH ×2 (06:23→19:01)
[2016-03-02 08:00] VITALS: BP 134/79
[2016-03-02] MEDS: levETIRAcetam 500mg/5ml Liquid GT SCH ×2 (08:10→17:42)
[2016-03-02] MEDS: Aspirin Baby 81mg ORAL SCH (08:10)
[2016-03-02] MEDS: Heparin 5000 units/ml inj SUBQ SCH ×2 (08:11→22:23)
[2016-03-02 12:00] VITALS: BP 135/70
--- NOTE | 2016-03-02 14:53 | General Progress Note ---
Assessment/Plan Problem List: (1) Urinary tract infection ICD Codes: N39.0 - Urinary tract infection, site not specified SNOMED: 64088925 (2) Sepsis ICD Codes: A41.9 - Sepsis, unspecified organism SNOMED: 09369939 (3) Altered level of consciousness ICD Codes: R40.4 - Transient alteration of awareness SNOMED: 6730657 (4) Adenocarcinoma ICD Codes: C80.1 - Malignant (primary) neoplasm, unspecified SNOMED: 17222373, 545221800, 399790915 (5) Acute encephalopathy ICD Codes: G93.40 - Encephalopathy, unspecified SNOMED: 0870515 Status: progressing Assessment/Plan uti diarrhea so ordered c diff awaiting stool cx results afebrile Subjective ROS Limited/Unobtainable: Yes Allergies: Coded Allergies: No Known Allergies (Unverified , 02/24/16) Objective Last 24 Hour Vital Signs Date Time Temp Pulse Resp B/P Pulse Ox O2 Delivery O2 Flow Rate FiO2 03/02/16 12:00 97.3 67 18 135/70 97 Room Air 03/02/16 08:57 82 18 Room Air 21 03/02/16 08:00 97.2 63 17 134/79 97 Room Air 03/02/16 04:00 97.7 62 18 148/80 97 Room Air 03/02/16 00:00 97.9 67 18 156/91 97 Room Air 03/01/16 21:43 69 16 Room Air 21 03/01/16 20:00 97.7 71 18 148/94 93 Room Air 03/01/16 16:19 97.7 67 18 140/93 97 Room Air Intake and Output 03/01/16 03/02/16 19:00 07:00 Intake Total 1450 ml 1185 ml Output Total 700 ml 950 ml Balance 750 ml 235 ml Intake Oral 550 ml 360 ml IV Total 900 ml 825 ml Output Urine Total 700 ml 950 ml Laboratory Tests 03/02/16 05:25: Pro-B-Type Natriuretic Peptide 312 Height (Feet): 5 Height (Inches): 3.00 Weight (Pounds): 142 Cardiovascular: normal rate Respiratory/Chest: lungs clear Abdomen: soft Nelson Rodriguez MD Mar 02, 2016 14:53
[2016-03-02 16:40] VITALS: BP 141/88
--- NOTE | 2016-03-02 17:13 | Infectious Diseases Prog Note ---
Assessment/Plan Problems: (1) Sepsis Assessment & Plan: ruled out, with negative blood culture , urine culture was not done , already received 7 days of antibiotics will D/C ceftriaxon today (2) Diarrhea Assessment & Plan: suspect due to antibiotics, await stool for C diff, off antibiotics (3) Urinary tract infection Assessment & Plan: already received antibiotics for 7 days, no urine culture was done . 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, S/P surgical resection, radiation and chemotherapy at [facility], unclear whether in remission or not, follow up with HEM/ONC Subjective Constitutional: Denies: anorexia, chills, drenching sweats, fatigue, fever, no symptoms, other HEENT: Denies: congestion, coryza, dysphagia, hearing change, no symptoms, other, visual change Respiratory: Denies: dry cough, no symptoms, other, productive cough, shortness of breath Breasts: Denies: discharge, no symptoms, other, swelling, tenderness Cardiovascular: Denies: chest pain, dyspnea on exertion, no symptoms, other, palpitations Gastrointestinal/Abdominal: Denies: bloating, blood in stool, constipation, diarrhea, nausea, no symptoms, other, vomiting Genitourinary: Denies: dysuria, frequency, hematuria, no symptoms, nocturia, other Neurologic: Reports: confusion, weakness Psychiatric: Denies: anxiety, depression, no symptoms, other Skin: Denies: no symptoms, other, rash, ulcer Endocrine: Denies: feels cold, feels warm, no symptoms, other Hematologic: Denies: bleeding, no symptoms, other, swollen lymph nodes Allergies: Coded Allergies: No Known Allergies (Unverified , 02/24/16) 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, was awake and alert, denied any fever or chills, no cough, or SOB, no diarrhea , follows commands Objective Vital Signs Last 24 Hour Vital Signs Date Time Temp Pulse Resp B/P Pulse Ox O2 Delivery O2 Flow Rate FiO2 03/02/16 16:40 96.4 71 18 141/88 96 Room Air 03/02/16 12:00 97.3 67 18 135/70 97 Room Air 03/02/16 08:57 82 18 Room Air 21 03/02/16 08:00 97.2 63 17 134/79 97 Room Air 03/02/16 04:00 97.7 62 18 148/80 97 Room Air 03/02/16 00:00 97.9 67 18 156/91 97 Room Air 03/01/16 21:43 69 16 Room Air 21 03/01/16 20:00 97.7 71 18 148/94 93 Room Air Height (Feet): 5 Height (Inches): 3.00 Weight (Pounds): 142 General Appearance: WD/WN, no acute distress HEENT: normocephalic, atraumatic, anicteric, mucous membranes moist, PERRL Respiratory/Chest: chest wall non-tender, lungs clear, normal breath sounds, no respiratory distress, no accessory muscle use Cardiovascular: normal peripheral pulses, normal rate, regular rhythm, no gallop/murmur, no JVD Abdomen: normal bowel sounds, soft, non tender, no organomegaly, non distended , no mass, no scars Extremities: no cyanosis, no clubbing Skin: no rash, no lesions, no ulcers Laboratory Tests Test 03/02/16 05:25 Pro-B-Type Natriuretic Peptide 312 pg/mL (0-450) Current Medications Medications (Trade) Dose Ordered Sig/Christina Route PRN Reason Start Time Stop Time Status Last Admin Dose Admin Acetaminophen (Tylenol) 650 mg Q4H PRN ORAL fever 02/24/16 22:45 03/25/16 22:44 Albuterol/ Ipratropium (DuoNeb 0.5-3(2.5)mg/3ml) 3 ml Q4H PRN HHN Shortness of Breath 02/27/16 10:45 03/03/16 23:59 Aspirin (ASA) 81 mg DAILY ORAL 02/25/16 09:00 03/26/16 08:59 03/02/16 08:10 Clonidine HCl (Catapres) 0.1 mg Q4H PRN ORAL For High Blood Pressure 02/24/16 22:45 03/25/16 22:44 Dextrose (Dextrose 50%) STAT PRN IV Hypoglycemia 02/24/16 22:45 03/25/16 22:44 Dextrose/Sodium Chloride (D5 0.45% NS) 1,000 ml @ 75 mls/hr [id number] IV 02/25/16 16:30 03/26/16 16:29 03/02/16 06:23 Finasteride (Proscar) 5 mg DAILY ORAL 02/25/16 09:00 03/26/16 08:59 03/02/16 08:10 Heparin Sodium (Porcine) (Heparin 5000 units/ml) 5,000 units EVERY 12 HOURS SUBQ 02/25/16 09:00 03/26/16 08:59 03/02/16 08:11 Levetiracetam (Keppra) 500 mg BID GT 02/25/16 09:00 03/26/16 08:59 03/02/16 08:10 Levothyroxine Sodium (Synthroid) 50 mcg ACBREAKFAST ORAL 02/25/16 06:30 03/26/16 06:29 03/02/16 06:23 Lorazepam (Ativan 2mg/ml 1ml) 0.5 mg Q4H PRN IV For Anxiety 02/24/16 22:45 03/02/16 22:44 Morphine Sulfate (Morphine Sulfate) 1 mg Q4H PRN IVP For Pain 7-10 02/24/16 22:45 03/02/16 22:44 Nitroglycerin (Ntg) 0.4 mg Q5M X 3 DOSES PRN SL Prn Chest Pain 02/24/16 22:45 03/25/16 22:44 Ondansetron HCl (Zofran) 4 mg Q6H PRN IVP Nausea & Vomiting 02/24/16 22:45 03/25/16 22:44 Pantoprazole (Protonix) 40 mg DAILY ORAL 02/25/16 16:30 03/26/16 16:29 03/02/16 08:10 Polyethylene Glycol (Miralax) 17 gm HSPRN PRN ORAL Constipation 02/24/16 22:45 03/25/16 22:44 Promethazine HCl/ Codeine 5 ml 5 ml Q4H PRN ORAL For Cough 02/24/16 22:45 03/25/16 22:44 Temazepam (Restoril) 15 mg HSPRN PRN ORAL Insomnia 02/24/16 22:45 03/02/16 22:44 02/29/16 22:14 Nabor Gonzales M.D. Mar 02, 2016 17:12
--- NOTE | 2016-03-02 17:25 | General Progress Note ---
Assessment/Plan Status: stable Assessment/Plan status: ---Acute renal failure due to ? Obstruction and Dehydration- Mainly prerenal picture- RESOLVED Other; - Acute encephalopathy - Urinary tract infection / Sepsis - Altered level of consciousness / Encephalopathy - Adenocarcinoma Plan: Hydrate- Avoid Nephrotoxics- Antibiotics- Urine studies- ? DC planning Subjective ROS Limited/Unobtainable: No Constitutional: Reports: malaise, weakness Allergies: Coded Allergies: No Known Allergies (Unverified , 02/24/16) Objective Last 24 Hour Vital Signs Date Time Temp Pulse Resp B/P Pulse Ox O2 Delivery O2 Flow Rate FiO2 03/02/16 16:40 96.4 71 18 141/88 96 Room Air 03/02/16 12:00 97.3 67 18 135/70 97 Room Air 03/02/16 08:57 82 18 Room Air 21 03/02/16 08:00 97.2 63 17 134/79 97 Room Air 03/02/16 04:00 97.7 62 18 148/80 97 Room Air 03/02/16 00:00 97.9 67 18 156/91 97 Room Air 03/01/16 21:43 69 16 Room Air 21 03/01/16 20:00 97.7 71 18 148/94 93 Room Air Intake and Output 03/01/16 03/02/16 19:00 07:00 Intake Total 1450 ml 1185 ml Output Total 700 ml 950 ml Balance 750 ml 235 ml Intake Oral 550 ml 360 ml IV Total 900 ml 825 ml Output Urine Total 700 ml 950 ml Laboratory Tests 03/02/16 05:25: Pro-B-Type Natriuretic Peptide 312 Height (Feet): 5 Height (Inches): 3.00 Weight (Pounds): 142 General Appearance: no apparent distress Objective other PE not changed JUAN ALBERTO PUGH Mar 02, 2016 17:25
--- NOTE | 2016-03-02 17:38 | Neurology Progress Note ---
Interim History Interim History Interim History Mr. Mg feels better. He is still very sparse with his words. He is still very subdued. 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 He continues to be generally weak. He says he is eating better. He has been seizure-free. Review of Systems Neuro Review of Systems Benign. Objective Physical Exam Last Vital Signs Date Time Temp Pulse Resp B/P Pulse Ox O2 Delivery O2 Flow Rate FiO2 03/02/16 16:40 96.4 71 18 141/88 96 Room Air 03/02/16 08:57 21 02/24/16 22:43 10.0 Laboratory Tests Test 03/02/16 05:25 Pro-B-Type Natriuretic Peptide 312 pg/mL (0-450) Neurologic Exam Objective PHYSICAL EXAMINATION: GENERAL: He is a well-developed, well-nourished, pleasant gentleman, lying in bed, in no acute distress. HEAD: Normocephalic and atraumatic. EENT: Examination benign. NECK: No neck rigidity was observed. NEUROLOGIC EXAMINATION: MENTAL STATUS EXAMINATION: He was awake, but not completely alert. He was oriented to self and hospital. He did not cooperate for further mental status testing. SPEECH: He had a mild dysarthria. LANGUAGE: He had anomia for low-frequency words. CRANIAL NERVE EXAMINATION: II: The visual gates were intact to threat. III, IV & : External ocular movements are full and the pupils 3 mm in diameter, equal, round, regular, and reactive to light. V: He had normal facial sensations and the temporales, masseters, and pterygoids functioned normally. VII: He had left VII central facial paresis. VIII: He was able to hear and had no nystagmus. IX: The palate moved symmetrically on phonation. X: He had no hoarseness of voice. XI: The sternocleidomastoids and trapezii functioned normally. XII: The tongue was in the midline without any fasciculations or atrophy. MOTOR SYSTEM: The tone was normal in all four extremities. Examination of muscle mass revealed no focal wasting. He did, however, have generalized muscle wasting. Examination of power revealed approximately grade 5/5 power except for grade 4/ 5 power in the left iliopsoas and grade 5-/5 power in the right iliopsoas. His effort was poor. SENSORY EXAMINATION: He had intact sensations to deep pain. He was unable to cooperate for the sensory modalities. REFLEXES: Trace+ on the right and 1+ on the left at the biceps, triceps, brachioradialis, and knees, and 0 at both ankles. The plantar responses were flexor bilaterally. COORDINATION: Could not be tested. STANCE & GAIT: Could not be tested. Impression/Recommendations Diagnostic Impression 1. Mr. Kirby Mg is an 82-year-old, right-handed, gentleman who does have a prior history of adenocarcinoma of the lung which is in remission now, cognitive dysfunction that started in January 2016 and rapidly progressed , and a single generalized tonic-clonic seizure in February 2016. The patient was in a rehabilitation facility where he was noted to have decline in cognitive function and was also having some abnormal jerking movements of one of his upper extremities; his daughter thinks the right. Since he has been at [facility], his condition seems to have improved. 2. He feels better today. He continues to exhibit significant cognitive and motor dysfunction. He is also severely psychomotor retarded. 3. On neurological examination, at this time, he demonstrates problems with orientation and does not cooperate for further mental status testing. He also has a left VII central facial paresis, quadriparesis involving the left side significantly more than the right and brisker reflexes on the left side. 4. The CT scan of the brain performed at [facility] reveals significant atrophy and deep white matter disease and in addition an area of calcification in the right parietal area. 5. Laboratory data obtained thus far revealed that he is mildly anemic with a hemoglobin of 13.3. When he came in, his WBC count was elevated to 14.7 with a left-sided shift. His electrolyte panel revealed his BUN elevated to 63 with a creatinine of 3.8, glucose of 154, and a proBNP of 872. His TSH is normal at 1.84. His urinalysis reveals that he does have a urinary tract infection with 1 + leukocyte esterase, 5 to 10 red blood cells, and 5 to 10 white blood cells per high-power field. His ammonia was normal. 6. The EEG revealed a moderately severe toxic/metabolic encephalopathy 7. The patient's history and neurological examination are most compatible with a significant encephalopathic process due to right greater than left brain dysfunction, electrolyte imbalances, urinary tract infection, and possibly a postictal state. 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 Recommendations 1. Continue present management. 2. Continue treating the patient's urinary tract infection aggressively. 3. Continue treating the patient's renal dysfunction as per Dr. Bowman. 4. Continue Keppra 500 mg q.12 h 5. Mobilize with PT/OT. Ray Wong M.D., M.S.P.H. RAY WONG Mar 02, 2016 17:37
--- NOTE | 2016-03-02 18:35 | Pulmonology Progress Note ---
Assessment/Plan Problems: (1) Acute encephalopathy (2) Urinary tract infection (3) Altered level of consciousness (4) SUSAN (acute kidney injury) (5) Adenocarcinoma Assessment/Plan Assessment/Plan telemetry monitoring check cultures check electrolytes renal evaluation neuro evaluation dvt prophylaxis dc planning in progress Subjective Interval Events: No loose bm Allergies: Coded Allergies: No Known Allergies (Unverified , 02/24/16) Objective Last 24 Hour Vital Signs Date Time Temp Pulse Resp B/P Pulse Ox O2 Delivery O2 Flow Rate FiO2 03/02/16 16:40 96.4 71 18 141/88 96 Room Air 03/02/16 12:00 97.3 67 18 135/70 97 Room Air 03/02/16 08:57 82 18 Room Air 21 03/02/16 08:00 97.2 63 17 134/79 97 Room Air 03/02/16 04:00 97.7 62 18 148/80 97 Room Air 03/02/16 00:00 97.9 67 18 156/91 97 Room Air 03/01/16 21:43 69 16 Room Air 21 03/01/16 20:00 97.7 71 18 148/94 93 Room Air Intake and Output 03/01/16 03/02/16 19:00 07:00 Intake Total 1450 ml 1185 ml Output Total 700 ml 950 ml Balance 750 ml 235 ml Intake Oral 550 ml 360 ml IV Total 900 ml 825 ml Output Urine Total 700 ml 950 ml General Appearance: WD/WN HEENT: normocephalic, atraumatic Respiratory/Chest: chest wall non-tender, lungs clear Cardiovascular: normal peripheral pulses, normal rate Abdomen: normal bowel sounds, soft, non tender Genitourinary: normal external genitalia Extremities: no clubbing Neurologic/Psychiatric: manager salt II-XII grossly normal Lymphatic: no neck adenopathy Laboratory Tests 03/02/16 05:25: Pro-B-Type Natriuretic Peptide 312 Current Medications Medications (Trade) Dose Ordered Sig/Christina Route PRN Reason Start Time Stop Time Status Last Admin Dose Admin Acetaminophen (Tylenol) 650 mg Q4H PRN ORAL fever 02/24/16 22:45 03/25/16 22:44 Albuterol/ Ipratropium (DuoNeb 0.5-3(2.5)mg/3ml) 3 ml Q4H PRN HHN Shortness of Breath 02/27/16 10:45 03/03/16 23:59 Aspirin (ASA) 81 mg DAILY ORAL 02/25/16 09:00 03/26/16 08:59 03/02/16 08:10 Clonidine HCl (Catapres) 0.1 mg Q4H PRN ORAL For High Blood Pressure 02/24/16 22:45 03/25/16 22:44 Dextrose (Dextrose 50%) STAT PRN IV Hypoglycemia 02/24/16 22:45 03/25/16 22:44 Dextrose/Sodium Chloride (D5 0.45% NS) 1,000 ml @ 75 mls/hr [id number] IV 02/25/16 16:30 03/26/16 16:29 03/02/16 06:23 Finasteride (Proscar) 5 mg DAILY ORAL 02/25/16 09:00 03/26/16 08:59 03/02/16 08:10 Heparin Sodium (Porcine) (Heparin 5000 units/ml) 5,000 units EVERY 12 HOURS SUBQ 02/25/16 09:00 03/26/16 08:59 03/02/16 08:11 Levetiracetam (Keppra) 500 mg BID GT 02/25/16 09:00 03/26/16 08:59 03/02/16 17:42 Levothyroxine Sodium (Synthroid) 50 mcg ACBREAKFAST ORAL 02/25/16 06:30 03/26/16 06:29 03/02/16 06:23 Lorazepam (Ativan 2mg/ml 1ml) 0.5 mg Q4H PRN IV For Anxiety 02/24/16 22:45 03/02/16 22:44 Morphine Sulfate (Morphine Sulfate) 1 mg Q4H PRN IVP For Pain 7-10 02/24/16 22:45 03/02/16 22:44 Nitroglycerin (Ntg) 0.4 mg Q5M X 3 DOSES PRN SL Prn Chest Pain 02/24/16 22:45 03/25/16 22:44 Ondansetron HCl (Zofran) 4 mg Q6H PRN IVP Nausea & Vomiting 02/24/16 22:45 03/25/16 22:44 Pantoprazole (Protonix) 40 mg DAILY ORAL 02/25/16 16:30 03/26/16 16:29 03/02/16 08:10 Polyethylene Glycol (Miralax) 17 gm HSPRN PRN ORAL Constipation 02/24/16 22:45 03/25/16 22:44 Promethazine HCl/ Codeine 5 ml 5 ml Q4H PRN ORAL For Cough 02/24/16 22:45 03/25/16 22:44 Temazepam (Restoril) 15 mg HSPRN PRN ORAL Insomnia 02/24/16 22:45 03/02/16 22:44 02/29/16 22:14 HELADIO AMBRIZ Mar 02, 2016 18:35
[2016-03-02 20:00] VITALS: BP 152/94
[2016-03-03 00:06] VITALS: BP 156/96
[2016-03-03 03:59] VITALS: BP 148/85
[2016-03-03 08:00] VITALS: BP 131/88
[2016-03-03] MEDS: Aspirin Baby 81mg ORAL SCH (08:45)
[2016-03-03] MEDS: levETIRAcetam 500mg/5ml Liquid GT SCH (08:45)
[2016-03-03] MEDS: D5 1/2NS 1,000 ML IV SCH (08:45)
[2016-03-03] MEDS: Heparin 5000 units/ml inj SUBQ SCH (08:48)
[2016-03-03] MEDS ORDERED: CLONIDINE HCL0.1 MG PO (10:53)
[2016-03-03] MEDS ORDERED: IPRAT-ALBUT 0.5-3 ML IH (11:07)
[2016-03-03] MEDS ORDERED: D5%-1/2NS-10 MEQ/100 IV (11:07)
[2016-03-03] MEDS ORDERED: NITROGLYCERIN0.4 MG SL (11:10)
[2016-03-03] MEDS ORDERED: PANTOPRAZOLE SO40 MG ORAL (11:11)
[2016-03-03] MEDS ORDERED: POLYETHYLENE GL17 GM ORAL (11:12)
[2016-03-03] MEDS ORDERED: PROMETH-CODEIN 65 ML PO ×2 (11:13→11:14)
[2016-03-03 12:03] VITALS: BP 115/74
--- NOTE | 2016-03-03 13:46 | General Progress Note ---
Assessment/Plan Problem List: (1) Urinary tract infection ICD Codes: N39.0 - Urinary tract infection, site not specified SNOMED: 94434710 (2) Sepsis ICD Codes: A41.9 - Sepsis, unspecified organism SNOMED: 14069696 (3) Altered level of consciousness ICD Codes: R40.4 - Transient alteration of awareness SNOMED: 6611729 (4) Adenocarcinoma ICD Codes: C80.1 - Malignant (primary) neoplasm, unspecified SNOMED: 08830996, 515939973, 406557695 (5) Acute encephalopathy ICD Codes: G93.40 - Encephalopathy, unspecified SNOMED: 6348242 Status: progressing Assessment/Plan uti no more diarrhea dc to snf that daughter wants if ok w id uti improved Subjective ROS Limited/Unobtainable: Yes Allergies: Coded Allergies: No Known Allergies (Unverified , 02/24/16) Objective Last 24 Hour Vital Signs Date Time Temp Pulse Resp B/P Pulse Ox O2 Delivery O2 Flow Rate FiO2 03/03/16 12:03 97.7 73 20 115/74 98 Room Air 03/03/16 08:20 73 18 Room Air 21 03/03/16 08:00 98.1 73 18 131/88 96 Room Air 03/03/16 03:59 97.6 74 19 148/85 98 Room Air 03/03/16 00:06 97.7 74 18 156/96 98 Room Air 03/02/16 20:00 98.1 76 20 152/94 95 Room Air 03/02/16 19:25 80 18 Room Air 21 03/02/16 16:40 96.4 71 18 141/88 96 Room Air Intake and Output 03/02/16 03/03/16 19:00 07:00 Intake Total 1140 ml 675 ml Output Total 375 ml 950 ml Balance 765 ml -275 ml Intake Oral 240 ml IV Total 900 ml 675 ml Output Urine Total 375 ml 950 ml # Voids 3 # Bowel Movements 1 Height (Feet): 5 Height (Inches): 3.00 Weight (Pounds): 142 General Appearance: confused EENT: PERRL/EOMI Respiratory/Chest: lungs clear Abdomen: soft Nelson Rodriguez MD Mar 03, 2016 13:46
--- NOTE | 2016-03-03 13:53 | General Progress Note ---
Assessment/Plan Status: stable Assessment/Plan status: ---Acute renal failure due to ? Obstruction and Dehydration- Mainly prerenal picture- RESOLVED Other; - Acute encephalopathy - Urinary tract infection / Sepsis - Altered level of consciousness / Encephalopathy - Adenocarcinoma Plan: no labs today- Hydrate- Avoid Nephrotoxics- Antibiotics- Urine studies- ? DC planning Subjective ROS Limited/Unobtainable: No Constitutional: Reports: malaise Allergies: Coded Allergies: No Known Allergies (Unverified , 02/24/16) Objective Last 24 Hour Vital Signs Date Time Temp Pulse Resp B/P Pulse Ox O2 Delivery O2 Flow Rate FiO2 03/03/16 12:03 97.7 73 20 115/74 98 Room Air 03/03/16 08:20 73 18 Room Air 21 03/03/16 08:00 98.1 73 18 131/88 96 Room Air 03/03/16 03:59 97.6 74 19 148/85 98 Room Air 03/03/16 00:06 97.7 74 18 156/96 98 Room Air 03/02/16 20:00 98.1 76 20 152/94 95 Room Air 03/02/16 19:25 80 18 Room Air 21 03/02/16 16:40 96.4 71 18 141/88 96 Room Air Intake and Output 03/02/16 03/03/16 19:00 07:00 Intake Total 1140 ml 675 ml Output Total 375 ml 950 ml Balance 765 ml -275 ml Intake Oral 240 ml IV Total 900 ml 675 ml Output Urine Total 375 ml 950 ml # Voids 3 # Bowel Movements 1 Height (Feet): 5 Height (Inches): 3.00 Weight (Pounds): 142 General Appearance: no apparent distress, lethargic Objective other PE not changed JUAN ALBERTO PUGH Mar 03, 2016 13:53
[2016-03-03 16:11] VITALS: BP 112/68
[2016-03-03 16:27] VITALS: BP 131/80
--- NOTE | 2016-03-03 16:34 | Infectious Diseases Prog Note ---
Assessment/Plan Problems: (1) Diarrhea Assessment & Plan: suspect due to antibiotics, no longer had diarrhea, was one time episode and resolved, doubt C DIFF. (2) Urinary tract infection Assessment & Plan: already received antibiotics for 7 days, no urine culture was done . 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, S/P surgical resection, radiation and chemotherapy at [facility], unclear whether in remission or not, follow up with HEM/ONC Subjective Constitutional: Denies: anorexia, chills, drenching sweats, fatigue, fever, no symptoms, other HEENT: Denies: congestion, coryza, dysphagia, hearing change, no symptoms, other, visual change Respiratory: Denies: dry cough, no symptoms, other, productive cough, shortness of breath Breasts: Denies: discharge, no symptoms, other, swelling, tenderness Cardiovascular: Denies: chest pain, dyspnea on exertion, no symptoms, other, palpitations Gastrointestinal/Abdominal: Denies: bloating, blood in stool, constipation, diarrhea, nausea, no symptoms, other, vomiting Genitourinary: Denies: dysuria, frequency, hematuria, no symptoms, nocturia, other Neurologic: Denies: confusion, headache, no symptoms, numbness, other, weakness Psychiatric: Denies: anxiety, depression, no symptoms, other Skin: Denies: no symptoms, other, rash, ulcer Allergies: Coded Allergies: No Known Allergies (Unverified , 02/24/16) 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, alert, denied any fever or chills, no cough, or SOB, no diarrhea , follows commands Objective Vital Signs Last 24 Hour Vital Signs Date Time Temp Pulse Resp B/P Pulse Ox O2 Delivery O2 Flow Rate FiO2 03/03/16 16:27 98.4 69 18 131/80 100 Room Air 03/03/16 12:03 97.7 73 20 115/74 98 Room Air 03/03/16 08:20 73 18 Room Air 21 03/03/16 08:00 98.1 73 18 131/88 96 Room Air 03/03/16 03:59 97.6 74 19 148/85 98 Room Air 03/03/16 00:06 97.7 74 18 156/96 98 Room Air 03/02/16 20:00 98.1 76 20 152/94 95 Room Air 03/02/16 19:25 80 18 Room Air 21 03/02/16 16:40 96.4 71 18 141/88 96 Room Air Height (Feet): 5 Height (Inches): 3.00 Weight (Pounds): 142 General Appearance: WD/WN, no acute distress HEENT: normocephalic, atraumatic, anicteric, mucous membranes moist Respiratory/Chest: chest wall non-tender, lungs clear, normal breath sounds, no respiratory distress, no accessory muscle use Cardiovascular: normal peripheral pulses, normal rate, regular rhythm, no gallop/murmur Abdomen: normal bowel sounds, soft, non tender, no organomegaly, non distended , no mass, no scars Extremities: no cyanosis, no clubbing Skin: no rash, no lesions Current Medications Medications (Trade) Dose Ordered Sig/Christina Route PRN Reason Start Time Stop Time Status Last Admin Dose Admin Acetaminophen (Tylenol) 650 mg Q4H PRN ORAL fever 02/24/16 22:45 03/25/16 22:44 Albuterol/ Ipratropium (DuoNeb 0.5-3(2.5)mg/3ml) 3 ml Q4H PRN HHN Shortness of Breath 02/27/16 10:45 03/03/16 23:59 Aspirin (ASA) 81 mg DAILY ORAL 02/25/16 09:00 03/26/16 08:59 03/03/16 08:45 Clonidine HCl (Catapres) 0.1 mg Q4H PRN ORAL For High Blood Pressure 02/24/16 22:45 03/25/16 22:44 Dextrose (Dextrose 50%) STAT PRN IV Hypoglycemia 02/24/16 22:45 03/25/16 22:44 Dextrose/Sodium Chloride (D5 0.45% NS) 1,000 ml @ 75 mls/hr [id number] IV 02/25/16 16:30 03/26/16 16:29 03/03/16 08:45 Finasteride (Proscar) 5 mg DAILY ORAL 02/25/16 09:00 03/26/16 08:59 03/03/16 08:45 Heparin Sodium (Porcine) (Heparin 5000 units/ml) 5,000 units EVERY 12 HOURS SUBQ 02/25/16 09:00 03/26/16 08:59 03/03/16 08:48 Levetiracetam (Keppra) 500 mg Q12HR ORAL 03/03/16 21:00 04/02/16 20:59 Levothyroxine Sodium (Synthroid) 50 mcg ACBREAKFAST ORAL 02/25/16 06:30 03/26/16 06:29 03/03/16 05:46 Nitroglycerin (Ntg) 0.4 mg Q5M X 3 DOSES PRN SL Prn Chest Pain 02/24/16 22:45 03/25/16 22:44 Ondansetron HCl (Zofran) 4 mg Q6H PRN IVP Nausea & Vomiting 02/24/16 22:45 03/25/16 22:44 Pantoprazole (Protonix) 40 mg DAILY ORAL 02/25/16 16:30 03/26/16 16:29 03/03/16 08:45 Polyethylene Glycol (Miralax) 17 gm HSPRN PRN ORAL Constipation 02/24/16 22:45 03/25/16 22:44 Promethazine HCl/ Codeine 5 ml 5 ml Q4H PRN ORAL For Cough 02/24/16 22:45 03/25/16 22:44 Nabor Gonzales M.D. Mar 03, 2016 16:34
--- NOTE | 2016-03-03 16:34 | Pulmonology Progress Note ---
Assessment/Plan Problems: (1) Acute encephalopathy (2) Urinary tract infection (3) Altered level of consciousness (4) SUSAN (acute kidney injury) (5) Adenocarcinoma Assessment/Plan continues to improve dvt prophylaxis check electrolytes renal f/u ok to dc to any facility pt/ot Subjective ROS Limited/Unobtainable: No Constitutional: Reports: no symptoms HEENT: Repors: no symptoms Respiratory: Reports: no symptoms Allergies: Coded Allergies: No Known Allergies (Unverified , 02/24/16) Objective Last 24 Hour Vital Signs Date Time Temp Pulse Resp B/P Pulse Ox O2 Delivery O2 Flow Rate FiO2 03/03/16 16:27 98.4 69 18 131/80 100 Room Air 03/03/16 12:03 97.7 73 20 115/74 98 Room Air 03/03/16 08:20 73 18 Room Air 21 03/03/16 08:00 98.1 73 18 131/88 96 Room Air 03/03/16 03:59 97.6 74 19 148/85 98 Room Air 03/03/16 00:06 97.7 74 18 156/96 98 Room Air 03/02/16 20:00 98.1 76 20 152/94 95 Room Air 03/02/16 19:25 80 18 Room Air 21 03/02/16 16:40 96.4 71 18 141/88 96 Room Air Intake and Output 03/02/16 03/03/16 19:00 07:00 Intake Total 1140 ml 675 ml Output Total 375 ml 950 ml Balance 765 ml -275 ml Intake Oral 240 ml IV Total 900 ml 675 ml Output Urine Total 375 ml 950 ml # Voids 3 # Bowel Movements 1 General Appearance: WD/WN HEENT: normocephalic Respiratory/Chest: chest wall non-tender, lungs clear, normal breath sounds Abdomen: normal bowel sounds, soft, non tender Genitourinary: normal external genitalia Neurologic/Psychiatric: [facility] former II-XII grossly normal Lymphatic: no neck adenopathy Current Medications Medications (Trade) Dose Ordered Sig/Christina Route PRN Reason Start Time Stop Time Status Last Admin Dose Admin Acetaminophen (Tylenol) 650 mg Q4H PRN ORAL fever 02/24/16 22:45 03/25/16 22:44 Albuterol/ Ipratropium (DuoNeb 0.5-3(2.5)mg/3ml) 3 ml Q4H PRN HHN Shortness of Breath 02/27/16 10:45 03/03/16 23:59 Aspirin (ASA) 81 mg DAILY ORAL 02/25/16 09:00 03/26/16 08:59 03/03/16 08:45 Clonidine HCl (Catapres) 0.1 mg Q4H PRN ORAL For High Blood Pressure 02/24/16 22:45 03/25/16 22:44 Dextrose (Dextrose 50%) STAT PRN IV Hypoglycemia 02/24/16 22:45 03/25/16 22:44 Dextrose/Sodium Chloride (D5 0.45% NS) 1,000 ml @ 75 mls/hr [id number] IV 02/25/16 16:30 03/26/16 16:29 03/03/16 08:45 Finasteride (Proscar) 5 mg DAILY ORAL 02/25/16 09:00 03/26/16 08:59 03/03/16 08:45 Heparin Sodium (Porcine) (Heparin 5000 units/ml) 5,000 units EVERY 12 HOURS SUBQ 02/25/16 09:00 03/26/16 08:59 03/03/16 08:48 Levetiracetam (Keppra) 500 mg Q12HR ORAL 03/03/16 21:00 04/02/16 20:59 Levothyroxine Sodium (Synthroid) 50 mcg ACBREAKFAST ORAL 02/25/16 06:30 03/26/16 06:29 03/03/16 05:46 Nitroglycerin (Ntg) 0.4 mg Q5M X 3 DOSES PRN SL Prn Chest Pain 02/24/16 22:45 03/25/16 22:44 Ondansetron HCl (Zofran) 4 mg Q6H PRN IVP Nausea & Vomiting 02/24/16 22:45 03/25/16 22:44 Pantoprazole (Protonix) 40 mg DAILY ORAL 02/25/16 16:30 03/26/16 16:29 03/03/16 08:45 Polyethylene Glycol (Miralax) 17 gm HSPRN PRN ORAL Constipation 02/24/16 22:45 03/25/16 22:44 Promethazine HCl/ Codeine 5 ml 5 ml Q4H PRN ORAL For Cough 02/24/16 22:45 03/25/16 22:44 HELADIO AMBRIZ Mar 03, 2016 16:34
[2016-03-03] MEDS ORDERED: D5 1/2NS 1000ml IV ONE (16:39)
[2016-03-03] MEDS ORDERED: levETIRAcetam 500mg/5ml Liquid ORAL SCH (21:00)
--- NOTE | 2016-03-04 18:29 | Discharge Summary ---
Discharge Summary Hospital Course Date of Admission Feb 24, 2016 at 22:07 Date of Discharge Mar 03, 2016 at 16:40 Admitting Diagnosis ams, adenocarcinoma HPI Kirby Mg is a 81 year old male who was admitted on Feb 24, 2016 at 22:07 for Altered Mental Status, Adenocarcinoma Hospital Course [id number] Discharge Discharge Disposition Patient was discharged to SNF/Subacute Facility(03) Discharge Diagnoses: Janeen Soler NP Mar 04, 2016 18:29
--- NOTE | 2016-03-05 03:28 | Discharge Summary 2 SIG ---
DATE OF ADMISSION: 02/24/2016 DATE OF DISCHARGE: 03/03/2016 CONSULTANTS: 1. Daniele Galo M.D. 2. Ray Tuttle M.D. 3. Nabor Gonzales M.D. 4. Jignesh Bowman M.D. 5. Danny Barker M.D. BRIEF HOSPITAL COURSE: The patient is an 81-year-old male, who presented to ED after increased level of consciousness. The patient was from rehabilitation center and was noted to have progressively altered mental status over the past few weeks. He has a history of adenocarcinoma. 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 WBC was elevated. Urinalysis with evidence of urinary tract infection. Dr. Tuttle was consulted. 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 In 02/2016, at home apparently he had generalized tonic-clonic seizure. He was taken to [facility] and CAT scan of the brain and MRI scan revealed a right parietal area of pathology with calcified lesion, significant hydrocephalus and extensive deep white matter changes. He was started on Keppra for seizure prophylaxis. He had volume lumbar puncture done, which did not improve his condition. He was then sent to [facility] and again his condition has gotten worse. On neurological examination, he demonstrated problems with orientation, recent and remote memory, visuospatial function, higher cognitive function and language. 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 He was continued on Keppra. An EEG revealed severe toxic metabolic encephalopathy. Dr. Gonzales was also consulted for antibiotic management. Urine was sent for culture. He was treated empirically with Zosyn and vancomycin. Dr. Bowman was consulted for acute renal failure possibly due to obstruction and dehydration, which is mainly prerenal in picture. He was given IV hydration. Dr. Galo was consulted as the patient has history of BPH and urinary retention. Advised to keep urinary Madison catheter and was continued on Proscar. Dr. Barker was consulted. The patient has lung adenocarcinoma and high aspiration risk. He was given antitussives and O2 therapy. A bedside swallow evaluation and video swallow evaluation was done with evidence of dysphagia and high risk of aspiration. He received seven days of ceftriaxone. Blood culture was negative. Urine culture apparently was not sent. The patient had diarrhea one time, which resolved. Acute kidney injury improved. The patient was discharged to [facility]. FINAL DIAGNOSES: 1. Acute toxic metabolic encephalopathy, present on admission. 2. Urinary tract infection. 3. Acute kidney injury. 4. Adenocarcinoma of the lung status post surgical resection, radiation and chemotherapy. 5. 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 6. Dysphagia with high aspiration risk. 7. Benign prostatic hypertrophy. 8. Urinary retention. 9. Hypothyroidism. 10. Seizure disorder. 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 Nelson Rodriguez M.D. I have been assigned to dictate discharge summary on this account and I was not involved in the patient's management. Janeen Soler N.P. DR: BIANKA JOB#: [id number] CC: JAKE
--- NOTE | 2016-03-19 13:42 | Cardiology Report ---
APPROVED REPORT EXAM: Two-dimensional and M-mode echocardiogram with Doppler and color Doppler. INDICATION Left ventricular function M-Mode DIMENSIONS IVSd1.4 (0.7-1.1cm)Aortic Root2.9 (2.0-3.7cm) LVDd4.2 (3.5-5.6cm)Aortic Cusp Exc.1.7 (1.5-2.0cm) IVSs1.1 cm LVDs3.1 (2.5-4.0cm) PWs0.9 cm Technically difficult study due to poor acoustic windows. Normal left ventricular chamber size, systolic function and wall motion. Left ventricular ejection fraction estimated to be 60-65 %. Mild left ventricular hypertrophy. Anterior Echo-free space, may be due to pericardial fat or effusion. Mild left atrial enlargement by 2D. Right cardiac chamber sizes are within normal limits. Focal aortic valve sclerosis with adequate cusp excursion Thickened mitral valve leaflets with normal excursion. Mitral annulus and aortic root calcification. Pulmonic valve not well visualized. Normal tricuspid valve structure. IVC is normal in size with physiologic collapse. A color flow and spectral Doppler study was performed and revealed: Mild aortic regurgitation. No mitral regurgitation. Left ventricular diastolic dysfunction grade 1. No tricuspid regurgitation.
--- NOTE | 2016-03-23 15:18 | Cardiology Report ---
APPROVED REPORT EKG Measurement Heart [id number] MD [id number] Normal sinus rhythm Left axis deviation Low voltage QRS Inferior infarct, age undetermined Cannot rule out Anterior infarct, age undetermined Abnormal ECG
== END 2016-03-03 16:40 | disposition short-term general hospital (02) | DRG 689 ==
LOC: EDBD 17:03 → EMR 21:38 → EDBD 22:07 → 2E 22:07 → EDBEDREQ 22:25 → 3E 02-25 15:17
DX: N39.0 Urinary tract infection, site not specified (principal); G92 Toxic encephalopathy; G82.50 Quadriplegia, unspecified; N17.9 Acute kidney failure, unspecified; K52.1 Toxic gastroenteritis and colitis; G91.2 (Idiopathic) normal pressure hydrocephalus; R13.10 Dysphagia, unspecified; G31.89 Other specified degenerative diseases of nervous system; F03.90 Unspecified dementia, unspecified severity, without behavioral disturbance, psychotic disturbance, mood disturbance, and anxiety; N13.9 Obstructive and reflux uropathy, unspecified; E86.0 Dehydration; F09 Unspecified mental disorder due to known physiological condition; Z92.3 Personal history of irradiation; G51.0 Bell's palsy; G40.909 Epilepsy, unspecified, not intractable, without status epilepticus; R25.1 Tremor, unspecified; Z90.2 Acquired absence of lung [part of]; Z85.118 Personal history of other malignant neoplasm of bronchus and lung; N40.1 Benign prostatic hyperplasia with lower urinary tract symptoms; R33.8 Other retention of urine; E03.9 Hypothyroidism, unspecified; N18.9 Chronic kidney disease, unspecified; T36.8X5A Adverse effect of other systemic antibiotics, initial encounter
CPT/HCPCS: 36415; 36600; 70450; 71010; 74230; 80048; 80053; 80061; 80202; 81003; 82140; 82306; 82550; 82553; 82607; 82746; 82803; 82962; 82977; 83036; 83605; 83735; 83880; 84100; 84300; 84443; 84484; 84550; 85007; 85025; 85610; 85651; 85730; 86140; 86592; 86710; 87040; 87081; 89050; 93005; 93306; 93880; 93970; 94664; 95819